=== PATIENT | male | born 1965 | race Two or more races ===

== ENCOUNTER 2017-05-29 15:50 | Observation (INO) | payer OTHER ==
[~2017-05-29] VITALS: Ht 180.3 cm; Wt 110.2 kg
--- NOTE | 2017-05-29 16:47 | PHYS DOC ---
Past Medical History Past Medical History: Anemia Additional Past Medical Histor: ULCER Past Surgical History: No Surgical History Alcohol Use: Occasionally Drug Use: None Adult General Chief Complaint Chief Complaint: CHEST PAIN HPI HPI Patient is a 51 year old male who presents ambulatory to the ED with the complaint of chest and neck pain. The patient's primary language is Belgian and the translator/interpreter phone was used by me for the history. Patient has really 2 separate complaints. He complains of pain on the left side of his neck and also pain in the middle of his chest. Patient has had some pain in the left neck off and on for some time. When it's worst it goes from the top of his head down the left side of his neck into his left upper arm. It does not go all the way down his arm. The pain is mainly in his neck. It worsens with movement of his neck such as turning his head from side to side. It doesn't really hurt at all when he lays still and holds his head straight. He's had this before off and on and really didn't think much of it. It kept him up some last night and he took some Tylenol at 2 AM which did help a little bit. He also complains of pain in the middle of his chest which is more concerning to him. On May 25, he was sitting, he stood up to give his a hug and he had the sudden onset of pain in the center of his chest. It felt like "a stab in my heart". Since then the pain will come and go but has not gone away and stayed away. Right now he is not having it. It does seem to worsen with movement or exertion. Also worsens with a slight cough or a deep breath. He has not had a cough, not short of air. No fever or chills. "I'm feeling fine other than the pain". Patient is concerned about the chest pain, concerned that it might be his heart. Patient does not smoke. His only medication is a "iron pill" that he takes 4 days a week. He has not taken anything for the pain other than a dose of Tylenol. PCP Dr. 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 [employer] Review of Systems Review of Systems Constitutional: Denies fever or chills [] HENT: Denies nasal congestion or sore throat [] Respiratory: As in history of present illness Cardiovascular: As in history of present illness GI: Denies abdominal pain, nausea, vomiting, bloody stools or diarrhea [] : Denies dysuria or hematuria [] Musculoskeletal: Denies back pain or joint pain [] Integument: Denies rash or skin lesions [] Neurologic: Denies headache, focal weakness or sensory changes [] Current Medications Current Medications Current Medications Medications (Trade) Dose Ordered Sig/Mirta Start Time Stop Time Status Last Admin Dose Admin Aspirin (Children'S Aspirin) 324 mg 1X ONCE 05/29/17 17:00 05/29/17 17:01 DC 05/29/17 16:54 324 MG Ketorolac Tromethamine (Toradol) 30 mg 1X ONCE 05/29/17 17:00 05/29/17 17:01 DC 05/29/17 16:54 30 MG Allergies Allergies Allergies Coded Allergies Type Severity Reaction Last Updated Verified No Known Drug Allergies 05/29/17 No Physical Exam Physical Exam Constitutional: Well developed, well nourished, no acute distress, non-toxic appearance. Alert, mentating normally, blood pressure 157/93, heart rate 80, pulse ox on room air 95%. HENT: Normocephalic, atraumatic, bilateral external ears normal, nose normal. [ ] Eyes: conjunctiva normal, no discharge. [] Neck: Normal range of motion, no stridor. Patient indicates the area of pain on the left trapezius muscle over the neck and top of the shoulder Cardiovascular:Heart rate regular rhythm, no murmur [] Lungs & Thorax: Bilateral breath sounds clear to auscultation [] Abdomen: Bowel sounds normal, soft, no tenderness, no masses, no pulsatile masses. [] Skin: Warm, dry, no erythema, no rash. [] Extremities: No tenderness, no cyanosis, no clubbing, ROM intact, no edema. [] Neurologic: Alert and oriented X 3, normal motor function, normal sensory function, no focal deficits noted. [] Current Patient Data Vital Signs Vital Signs Date Time Temp Pulse Resp B/P (MAP) Pulse Ox O2 Delivery O2 Flow Rate FiO2 05/29/17 16:00 98.6 73 18 166/108 (127) 97 Room Air 98.6 Lab Values Laboratory Tests Test 05/29/17 16:05 White Blood Count 6.7 x10^3/uL (4.0-11.0) Red Blood Count 5.40 x10^6/uL (4.30-5.70) Hemoglobin 16.1 g/dL (13.0-17.5) Hematocrit 48.1 % (39.0-53.0) Mean Corpuscular Volume 89 fL (79-100) Mean Corpuscular Hemoglobin 30 pg (25-35) Mean Corpuscular Hemoglobin Concent 33 g/dL (31-37) Red Cell Distribution Width 14.6 % (11.5-14.5) H Platelet Count 176 x10^3/uL (140-400) Neutrophils (%) (Auto) 73 % (31-73) Lymphocytes (%) (Auto) 19 % (24-48) L Monocytes (%) (Auto) 6 % (0-9) Eosinophils (%) (Auto) 1 % (0-3) Basophils (%) (Auto) 1 % (0-3) Neutrophils # (Auto) 4.9 x10^3uL (1.8-7.7) Lymphocytes # (Auto) 1.3 x10^3/uL (1.0-4.8) Monocytes # (Auto) 0.4 x10^3/uL (0.0-1.1) Eosinophils # (Auto) 0.1 x10^3/uL (0.0-0.7) Basophils # (Auto) 0.1 x10^3/uL (0.0-0.2) Sodium Level 142 mmol/L (136-145) Potassium Level 3.9 mmol/L (3.5-5.1) Chloride Level 106 mmol/L (98-107) Carbon Dioxide Level 26 mmol/L (21-32) Anion Gap 10 (6-14) Blood Urea Nitrogen 9 mg/dL (8-26) Creatinine 0.7 mg/dL (0.7-1.3) Estimated GFR (Cockcroft-Gault) 119.4 Glucose Level 105 mg/dL (70-99) H Calcium Level 8.8 mg/dL (8.5-10.1) Magnesium Level 2.0 mg/dL (1.8-2.4) Total Bilirubin 0.8 mg/dL (0.2-1.0) Direct Bilirubin 0.1 mg/dL (0.0-0.2) Aspartate Amino Transferase (AST) 29 U/L (15-37) Alanine Aminotransferase (ALT) 29 U/L (16-63) Alkaline Phosphatase 100 U/L (46-116) Creatine Kinase 301 U/L (39-308) Creatine Kinase MB (Mass) 1.1 ng/mL (0.0-3.6) Creatine Kinase MB Relative Index 0.4 % (0-4) Troponin I Quantitative < 0.017 ng/mL (0.000-0.055) CA-Tmm-B-Type Natriuretic Peptide 41 pg/mL (0-124) Total Protein 7.5 g/dL (6.4-8.2) Albumin 3.7 g/dL (3.4-5.0) Laboratory Tests 05/29/17 16:05 Laboratory Tests 05/29/17 16:05 EKG EKG 12-lead EKG read by me. Sinus rhythm. Heart rate 73. There are no acute ST or T wave changes indicative of ischemia or infarction. No STEMI. 1602 [] Radiology/Procedures Radiology/Procedures Chest x-ray read by the radiologist. No acute findings. [] Course & Med Decision Making Course & Med Decision Making Pertinent Labs and Imaging studies reviewed. (See chart for details) 51-year-old male presents to the ED with what seems to be 2 separate pain complaints. He is complaining of pain on the left side of his neck that sounds musculoskeletal. He believes he has a separate pain which is a pain in the middle of his chest which she first noticed 5 days ago and has been coming and going since then. It does not sound particularly cardiac but there is no other explanation at this time for the pain. The patient is concerned it might be his heart. I discussed with the patient, using the translator/interpreter phone, that we can evaluate labs, EKG, chest x-ray and emergency department, but to fully evaluate him and rule out cardiac etiology we will need to admit him to the hospital for at least one night for cardiology evaluation and further testing. He is agreeable to that plan. We will give the patient had a dose of IV Toradol for the neck pain but what we are really concerned with today is the chest pain. Labs, EKG, chest x-ray unremarkable in the ED. We will admit him for an observation stay for rule out cardiac etiology. I discussed the case with Dr. [facility] medicine, who will admit the patient. I wrote bridge orders. [] Dragon Disclaimer Dragon Disclaimer This electronic medical record was generated, in whole or in part, using a voice recognition dictation system. Departure Departure Impression: Primary Impression: Chest pain Disposition: 09 ADMITTED INPATIENT Admitting Physician: Other Condition: STABLE VALENTÍN KIM MD May 29, 2017 16:47
[2017-05-29 16:50] LABS: BASO # 0.1 x10^3/uL (0.0-0.2); BASO % 1 % (0-3); EOS % 1 % (0-3); HEMATOCRIT 48.1 % (39.0-53.0); HEMOGLOBIN 16.1 g/dL (13.0-17.5); LYMPH # 1.3 x10^3/uL (1.0-4.8); LYMPH % 19 % (24-48); MEAN CORPUSCULAR HEMOGLOBIN 30 pg (25-35); MEAN CORPUSCULAR HGB CONC 33 g/dL (31-37); MEAN CORPUSCULAR VOLUME 89 fL (79-100); MONO % 6 % (0-9); NEUT % 73 % (31-73); PLATELET COUNT 176 x10^3/uL (140-400); RED CELL DISTRIBUTION WIDTH 14.6 % (11.5-14.5); WHITE BLOOD COUNT 6.7 x10^3/uL (4.0-11.0)
[2017-05-29] MEDS ORDERED: KETOROLAC TROMETHAMINE 30 MG/ML INJ. IV ONE (17:00)
[2017-05-29] MEDS ORDERED: ASPIRIN CHEWABLE 81 MG TABLET. PO ONE (17:00)
--- NOTE | 2017-05-29 17:03 | RAD ---
AP portable chest radiograph 05/29/2017 Clinical History: Mid chest pain since earlier today. An AP portable erect digital radiograph of the chest was obtained. No previous studies are available for comparison. The cardiac silhouette is mildly enlarged. The thoracic aorta is tortuous. Linear band of subsegmental atelectasis is seen involving the medial aspect of the left lower lobe. No area of consolidation is seen. No pleural effusion or pneumothorax is noted. Degenerative changes are seen involving the thoracic spine and both shoulders. Impression: Left lower lobe subsegmental atelectasis. No area of consolidation is seen.
[2017-05-29 17:06] LABS: CALCIUM 8.8 mg/dL (8.5-10.1); CREATININE 0.7 mg/dL (0.7-1.3); GFR 119.4; POTASSIUM 3.9 mmol/L (3.5-5.1)
[2017-05-29 17:12] LABS: ALBUMIN 3.7 g/dL (3.4-5.0); DIRECT BILIRUBIN 0.1 mg/dL (0.0-0.2); TOTAL BILIRUBIN 0.8 mg/dL (0.2-1.0); TOTAL PROTEIN 7.5 g/dL (6.4-8.2)
[2017-05-29 17:21] LABS: CKMB MASS 1.1 ng/mL (0.0-3.6)
[2017-05-29 19:30] VITALS: BP 124/88
--- NOTE | 2017-05-29 19:31 | HP ---
ADMIT DATE: 05/29/2017 CHIEF COMPLAINT: Chest pain, neck pain. HISTORY OF PRESENT ILLNESS: The patient is a 51-year-old Chinese gentleman who presented to the Emergency Room with chest pain as well as neck pain. 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 This was coming and going off and on for the next couple of days disappeared over the weekend only to recur on Sunday. Currently, his chest pain is essentially resolved. He states it is worse with deep breathing or coughing. He has a mild chronic cough. What concerned him more was actually his neck pain that started yesterday at work. He had a sharp, crampy pain in the left side of his neck, making it difficult for him to actually turn his neck from side to side. He tried Tylenol with minimal relief and decided with 2 different pains to come into the hospital. In the Emergency Room, his neck pain is actually much improved. He denies significant chest pain at this time. Denies any fevers, chills or other symptoms. PAST MEDICAL HISTORY: GI bleed in distant past. He does not remember any details. FAMILY HISTORY: Unknown, both parents . SOCIAL HISTORY: Lives with his . Never smoked. Drinks alcohol socially and no drugs. ALLERGIES: No known drug allergies. MEDICATIONS: MAR reconciled with home medications. REVIEW OF SYSTEMS: positive as per HPI. no other symptoms in rest of organ system review. PHYSICAL EXAM: Vital signs are stable, he is afebrile. In GENERAL, this is a 51 y/o obese Chinese man, alert and oriented, in no acute distress. HEENT shows no icterus, no lymphadenopathy. LUNGS are clear to auscultation. HEART has regular rate and rhythm. ABDOMEN is obese, positive bowel sounds, nontender. EXTREMITIES show no edema. SKIN is warm, soft and dry. NEUROLOGICALLY he is grossly intact. LABS: CBC with a WBC of 6.7, hemoglobin onf 16.1, platelets 176. Chemistries completely normal, incl LFTs. Initial cardiac enzymes all normal. RADIOGRAPHIC FINDINGS: CXR with left lower lobe atelectasis, no consolidations noted. ASSESSMENT AND PLAN: Mr Alvarez is a 51 yea old Chinese presenting with atypical chest pain. Suspicion is that this is GERD, given chronic cough, body habitus and history of what sounds like PUD. Will start on H2 brendon tonight, switch to PPI in AM. Nevertheless, heart disease should be ruled out. He will be admitted, serial enzymes and EKGs will be obtained. cardiology consult will be called in AM. Labs are ordered to stratify for other risk factors, including lipids and hemoglobin A1c. His neck pain is most likely musculoskeletal. Heating pad and NSAIDs would be ideal, but with suspected GI issues, trial of tylenol on lortab is preferable. KARUNA PERSAUD MD DR: IRA/nts JOB#: [id number] / [id number] KIMBERLEY
[2017-05-29 23:00] VITALS: BP 124/79
[2017-05-29] MEDS ORDERED: FAMOTIDINE 20 MG TABLET. PO ONE (23:00)
--- NOTE | 2017-05-29 23:45 | EKG ---
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
[2017-05-30 07:00] VITALS: BP 131/89
[2017-05-30] MEDS ORDERED: PANTOPRAZOLE 40 MG TABLET.DR. PO SCH (07:30)
[2017-05-30 07:38] LABS: CHOLESTEROL/HDL RATIO 4.9
[2017-05-30] MEDS ORDERED: IBUPROFEN 600 MG TABLET. PO PRN (09:15)
[2017-05-30] MEDS ORDERED: MORPHINE SULFATE 4 MG/ML DISP.SYRIN. IV PRN (09:15)
[2017-05-30] MEDS ORDERED: ONDANSETRON PF 4 MG/2 ML VIAL. IV PRN (09:15)
--- NOTE | 2017-05-30 09:47 | PDOC2 ---
CARDIAC CONSULT DATE OF CONSULT Date of Consult DATE: 05/30/17 TIME: 09:43 REASON FOR CONSULT Reason for Consult: Chest pain REFERRING PHYSICIAN Referring Physician: Dr. Barreto SOURCE Source: Chart review, Patient HISTORY OF PRESENT ILLNESS HISTORY OF PRESENT ILLNESS This is a 51 yo Welsh-speaking male who presented with complaints of chest pain. [employer] line utilized. Patient reports experiencing intermittent pain in his central chest for the last 3-4 days. Describes as stabbing in nature. Worse with sneezing and coughing. No associated shortness of breath, dizziness, diaphoresis, palpitations, or nausea/vomiting. No recent DAVID or PND. Had left posterior neck pain on Sunday. Worsened with moving the neck a certain way. On Sunday, chest pain seemed to worsen throughout the day. Called PCP, but was unable to get in to be seen so her came into the ED for further evaluation and treatment. Does have a history of PUD approximately 8 years ago. Drinks a 12- pack of beer every weekend. Pain is resolved this morning. PAST MEDICAL HISTORY Cardiovascular: No pertinent hx Pulmonary: No pertinent hx GI: GI bleed, Peptic Ulcer disease Heme/Onc: No pertinent hx Hepatobiliary: No pertinent hx Psych: No pertinent hx Rheumatologic: No pertinent hx Infectious disease: No pertinent hx ENT: No pertinent hx Renal/: No pertinent hx Endocrine: No pertinent hx Dermatology: No pertinent hx PAST SURGICAL HISTORY Past Surgical History: No pertinent history FAMILY HISTORY Family History: Other (noncontributory ) SOCIAL HISTORY Smoke: No ALCOHOL: other (12-pack beer every weekend ) Drugs: None Lives: with Family CURRENT MEDICATIONS CURRENT MEDICATIONS Current Medications Medications (Trade) Dose Ordered Sig/Mirta Route PRN Reason Start Time Stop Time Status Last Admin Dose Admin Aspirin (Children'S Aspirin) 324 mg 1X ONCE PO 05/29/17 17:00 05/29/17 17:01 DC 05/29/17 16:54 Ketorolac Tromethamine (Toradol) 30 mg 1X ONCE IV 05/29/17 17:00 05/29/17 17:01 DC 05/29/17 16:54 Famotidine (Pepcid) 20 mg 1X ONCE PO 05/29/17 23:00 05/29/17 23:01 DC 05/29/17 22:56 Pantoprazole Sodium (Protonix) 40 mg DAILYAC PO 05/30/17 07:30 05/30/17 08:43 ALLERGIES ALLERGIES: Coded Allergies: No Known Drug Allergies (Unverified , 05/29/17) ROS Review of System 14 point ROS conducted with pertinent positives noted above in HPI. PHYSICAL EXAM General: Alert, Oriented X3, Cooperative, No acute distress HEENT: Atraumatic, Mucous membr. moist/pink Lungs: Clear to auscultation, Normal air movement Heart: Regular rate, Normal S1, Normal S2 Abdomen: Soft, No tenderness Extremities: No edema, Normal pulses Skin: No significant lesion Neuro: Normal speech, Sensation intact Psych/Mental Status: Mental status NL, Mood NL MUSCULOSKELETAL: No joint tenderness VITALS VITALS Vital Signs Date Time Temp Pulse Resp B/P (MAP) Pulse Ox O2 Delivery O2 Flow Rate FiO2 05/30/17 07:00 98.5 59 20 131/89 (103) 95 Room Air 98.5 LABS Lab: Laboratory Tests Test 05/29/17 16:05 05/30/17 00:50 05/30/17 06:28 White Blood Count 6.7 x10^3/uL (4.0-11.0) Red Blood Count 5.40 x10^6/uL (4.30-5.70) Hemoglobin 16.1 g/dL (13.0-17.5) Hematocrit 48.1 % (39.0-53.0) Mean Corpuscular Volume 89 fL (79-100) Mean Corpuscular Hemoglobin 30 pg (25-35) Mean Corpuscular Hemoglobin Concent 33 g/dL (31-37) Red Cell Distribution Width 14.6 % (11.5-14.5) Platelet Count 176 x10^3/uL (140-400) Neutrophils (%) (Auto) 73 % (31-73) Lymphocytes (%) (Auto) 19 % (24-48) Monocytes (%) (Auto) 6 % (0-9) Eosinophils (%) (Auto) 1 % (0-3) Basophils (%) (Auto) 1 % (0-3) Neutrophils # (Auto) 4.9 x10^3uL (1.8-7.7) Lymphocytes # (Auto) 1.3 x10^3/uL (1.0-4.8) Monocytes # (Auto) 0.4 x10^3/uL (0.0-1.1) Eosinophils # (Auto) 0.1 x10^3/uL (0.0-0.7) Basophils # (Auto) 0.1 x10^3/uL (0.0-0.2) Sodium Level 142 mmol/L (136-145) Potassium Level 3.9 mmol/L (3.5-5.1) Chloride Level 106 mmol/L (98-107) Carbon Dioxide Level 26 mmol/L (21-32) Anion Gap 10 (6-14) Blood Urea Nitrogen 9 mg/dL (8-26) Creatinine 0.7 mg/dL (0.7-1.3) Estimated GFR (Cockcroft-Gault) 119.4 Glucose Level 105 mg/dL (70-99) Calcium Level 8.8 mg/dL (8.5-10.1) Magnesium Level 2.0 mg/dL (1.8-2.4) Total Bilirubin 0.8 mg/dL (0.2-1.0) Direct Bilirubin 0.1 mg/dL (0.0-0.2) Aspartate Amino Transf (AST/SGOT) 29 U/L (15-37) Alanine Aminotransferase (ALT/SGPT) 29 U/L (16-63) Alkaline Phosphatase 100 U/L (46-116) Creatine Kinase 301 U/L (39-308) Creatine Kinase MB (Mass) 1.1 ng/mL (0.0-3.6) Creatine Kinase MB Relative Index 0.4 % (0-4) Troponin I Quantitative < 0.017 ng/mL (0.000-0.055) < 0.017 ng/mL (0.000-0.055) < 0.017 ng/mL (0.000-0.055) ZH-Cfe-S-Type Natriuretic Peptide 41 pg/mL (0-124) Total Protein 7.5 g/dL (6.4-8.2) Albumin 3.7 g/dL (3.4-5.0) Triglycerides Level 84 mg/dL (0-150) Cholesterol Level 156 mg/dL (0-200) LDL Cholesterol, Calculated 107 mg/dL (0-100) VLDL Cholesterol, Calculated 17 mg/dL (0-40) Non-HDL Cholesterol Calculated 124 mg/dL (0-129) HDL Cholesterol 32 mg/dL (40-60) Cholesterol/HDL Ratio 4.9 ASSESSMENT/PLAN ASSESSMENT/PLAN 1. Chest pain, atypical. AMI ruled out. 2. H/o PUD 3. GERD Recommendations Will check echo to assess LV function/presence of WMA If WNL, may discharge from a cardiac standpoint Supportive care. Pain most probably GI in origin. Agree with PPI If pain persists, could consider outpatient ischemic workup. Problems: ADAM DOWLING APRN May 30, 2017 09:47
[2017-05-30 11:00] VITALS: BP 125/90
--- NOTE | 2017-05-30 11:30 | PDOC3 ---
Discharge Summary Visit Information Date of Admission: May 29, 2017 Date of Discharge: May 30, 2017 Admitting Diagnosis Comment: 1. Chest pain, atypical. AMI ruled out. 2. H/o PUD 3. GERD Final Diagnosis Problems Medical Problems: (1) Chest pain Status: Acute Brief Hospital Course Allergies Allergies Coded Allergies Type Severity Reaction Last Updated Verified No Known Drug Allergies 05/29/17 No Vital Signs Vital Signs Date Time Temp Pulse Resp B/P (MAP) Pulse Ox O2 Delivery O2 Flow Rate FiO2 05/30/17 11:00 98.7 64 20 125/90 (102) 96 Room Air 98.7 Lab Results Laboratory Tests Test 05/29/17 16:05 05/30/17 00:50 05/30/17 06:28 White Blood Count 6.7 x10^3/uL (4.0-11.0) Red Blood Count 5.40 x10^6/uL (4.30-5.70) Hemoglobin 16.1 g/dL (13.0-17.5) Hematocrit 48.1 % (39.0-53.0) Mean Corpuscular Volume 89 fL (79-100) Mean Corpuscular Hemoglobin 30 pg (25-35) Mean Corpuscular Hemoglobin Concent 33 g/dL (31-37) Red Cell Distribution Width 14.6 % (11.5-14.5) Platelet Count 176 x10^3/uL (140-400) Neutrophils (%) (Auto) 73 % (31-73) Lymphocytes (%) (Auto) 19 % (24-48) Monocytes (%) (Auto) 6 % (0-9) Eosinophils (%) (Auto) 1 % (0-3) Basophils (%) (Auto) 1 % (0-3) Neutrophils # (Auto) 4.9 x10^3uL (1.8-7.7) Lymphocytes # (Auto) 1.3 x10^3/uL (1.0-4.8) Monocytes # (Auto) 0.4 x10^3/uL (0.0-1.1) Eosinophils # (Auto) 0.1 x10^3/uL (0.0-0.7) Basophils # (Auto) 0.1 x10^3/uL (0.0-0.2) Sodium Level 142 mmol/L (136-145) Potassium Level 3.9 mmol/L (3.5-5.1) Chloride Level 106 mmol/L (98-107) Carbon Dioxide Level 26 mmol/L (21-32) Anion Gap 10 (6-14) Blood Urea Nitrogen 9 mg/dL (8-26) Creatinine 0.7 mg/dL (0.7-1.3) Estimated GFR (Cockcroft-Gault) 119.4 Glucose Level 105 mg/dL (70-99) Calcium Level 8.8 mg/dL (8.5-10.1) Magnesium Level 2.0 mg/dL (1.8-2.4) Total Bilirubin 0.8 mg/dL (0.2-1.0) Direct Bilirubin 0.1 mg/dL (0.0-0.2) Aspartate Amino Transf (AST/SGOT) 29 U/L (15-37) Alanine Aminotransferase (ALT/SGPT) 29 U/L (16-63) Alkaline Phosphatase 100 U/L (46-116) Creatine Kinase 301 U/L (39-308) Creatine Kinase MB (Mass) 1.1 ng/mL (0.0-3.6) Creatine Kinase MB Relative Index 0.4 % (0-4) Troponin I Quantitative < 0.017 ng/mL (0.000-0.055) < 0.017 ng/mL (0.000-0.055) < 0.017 ng/mL (0.000-0.055) EG-Vbn-M-Type Natriuretic Peptide 41 pg/mL (0-124) Total Protein 7.5 g/dL (6.4-8.2) Albumin 3.7 g/dL (3.4-5.0) Triglycerides Level 84 mg/dL (0-150) Cholesterol Level 156 mg/dL (0-200) LDL Cholesterol, Calculated 107 mg/dL (0-100) VLDL Cholesterol, Calculated 17 mg/dL (0-40) Non-HDL Cholesterol Calculated 124 mg/dL (0-129) HDL Cholesterol 32 mg/dL (40-60) Cholesterol/HDL Ratio 4.9 Laboratory Tests Test 05/29/17 16:05 05/30/17 00:50 05/30/17 06:28 White Blood Count 6.7 x10^3/uL (4.0-11.0) Red Blood Count 5.40 x10^6/uL (4.30-5.70) Hemoglobin 16.1 g/dL (13.0-17.5) Hematocrit 48.1 % (39.0-53.0) Mean Corpuscular Volume 89 fL (79-100) Mean Corpuscular Hemoglobin 30 pg (25-35) Mean Corpuscular Hemoglobin Concent 33 g/dL (31-37) Red Cell Distribution Width 14.6 % (11.5-14.5) Platelet Count 176 x10^3/uL (140-400) Neutrophils (%) (Auto) 73 % (31-73) Lymphocytes (%) (Auto) 19 % (24-48) Monocytes (%) (Auto) 6 % (0-9) Eosinophils (%) (Auto) 1 % (0-3) Basophils (%) (Auto) 1 % (0-3) Neutrophils # (Auto) 4.9 x10^3uL (1.8-7.7) Lymphocytes # (Auto) 1.3 x10^3/uL (1.0-4.8) Monocytes # (Auto) 0.4 x10^3/uL (0.0-1.1) Eosinophils # (Auto) 0.1 x10^3/uL (0.0-0.7) Basophils # (Auto) 0.1 x10^3/uL (0.0-0.2) Sodium Level 142 mmol/L (136-145) Potassium Level 3.9 mmol/L (3.5-5.1) Chloride Level 106 mmol/L (98-107) Carbon Dioxide Level 26 mmol/L (21-32) Anion Gap 10 (6-14) Blood Urea Nitrogen 9 mg/dL (8-26) Creatinine 0.7 mg/dL (0.7-1.3) Estimated GFR (Cockcroft-Gault) 119.4 Glucose Level 105 mg/dL (70-99) Calcium Level 8.8 mg/dL (8.5-10.1) Magnesium Level 2.0 mg/dL (1.8-2.4) Total Bilirubin 0.8 mg/dL (0.2-1.0) Direct Bilirubin 0.1 mg/dL (0.0-0.2) Aspartate Amino Transf (AST/SGOT) 29 U/L (15-37) Alanine Aminotransferase (ALT/SGPT) 29 U/L (16-63) Alkaline Phosphatase 100 U/L (46-116) Creatine Kinase 301 U/L (39-308) Creatine Kinase MB (Mass) 1.1 ng/mL (0.0-3.6) Creatine Kinase MB Relative Index 0.4 % (0-4) Troponin I Quantitative < 0.017 ng/mL (0.000-0.055) < 0.017 ng/mL (0.000-0.055) < 0.017 ng/mL (0.000-0.055) AQ-Mlq-U-Type Natriuretic Peptide 41 pg/mL (0-124) Total Protein 7.5 g/dL (6.4-8.2) Albumin 3.7 g/dL (3.4-5.0) Triglycerides Level 84 mg/dL (0-150) Cholesterol Level 156 mg/dL (0-200) LDL Cholesterol, Calculated 107 mg/dL (0-100) VLDL Cholesterol, Calculated 17 mg/dL (0-40) Non-HDL Cholesterol Calculated 124 mg/dL (0-129) HDL Cholesterol 32 mg/dL (40-60) Cholesterol/HDL Ratio 4.9 Brief Hospital Course Mr. Ramos is a 51 old male minimal nicaraguan hx PUD, admitted for CP, AMI r.o with normal CE x 3 and EKG, Echo being checked, if echo, dc home today. Advised OTC prevacid and tums, IF sxs persist then GI as oP. ALso neck pain POA, better on dc. Advised NSAID or icy hot and salon pas Dw family at bedside and cards DispO; Home PT seen and exmained Discharge Information Condition at Discharge: Improved, Stable Disposition/Orders: D/C to Home KYLEE CORRALES MD May 30, 2017 11:30
[2017-05-30 14:42] VITALS: BP 136/101
--- NOTE | 2017-05-30 15:15 | CARD ---
APPROVED REPORT EXAM: Two-dimensional and M-mode echocardiogram with Doppler and color Doppler. Other Information Quality : GoodHR: 63bpm Rhythm : NSR INDICATION Chest Pain RISK FACTORS Obesity 2D DIMENSIONS RVDd3.4 (2.9-3.5cm)Left Atrium(2D)4.3 (1.6-4.0cm) IVSd1.2 (0.7-1.1cm)Aortic Root(2D)3.7 (2.0-3.7cm) LVDd5.5 (3.9-5.9cm)LVOT Diameter2.4 (1.8-2.4cm) PWd1.2 (0.7-1.1cm)LVDs3.2 (2.5-4.0cm) FS (%) 40.7 %SV103.3 ml LVEF(%)70.9 (>50%) Aortic Valve AoV Peak Marco A.117.2cm/sAoV VTI24.5cm AO Peak GR.5.5mmHgLVOT Peak Marco A.92.8cm/s AO Mean GR.3mmHgAVA (VMAX)3.57cm2 Mitral Valve MV E Tsogqtri25.0cm/sMV E Peak Gr.3mmHg MV DECEL [id number] A Nmxgpfoz37.7cm/s MV E Mean Gr.1mmHgE/A Ratio0.7 MV A [id number] Pulmonary Valve PV Peak Riazgwnc987.3cm/s Pulmonary Vein S1 Uygjjksv70.9cm/sD2 Tarqftla63.4cm/s PVa [id number] LEFT VENTRICLE The left ventricle is normal size. There is mild concentric left ventricular hypertrophy. The left ve ntricular systolic function is normal. The Ejection Fraction is 60-65%. There is normal LV segmental wall motion. Transmitral Doppler flow pattern is Grade I-abnormal relaxation pattern. RIGHT VENTRICLE The right ventricle is normal size. There is normal right ventricular wall thickness. The right ventr icular systolic function is normal. ATRIA The left atrium is mildly dilated. The right atrium size is normal. The interatrial septum is intact with no evidence for an atrial septal defect or patent foramen ovale as noted on 2-D or Doppler imagi ng. AORTIC VALVE The aortic valve is normal in structure and function. The aortic valve is trileaflet. Doppler and Col or Flow revealed no significant aortic regurgitation. There is no significant aortic valvular stenosi s. MITRAL VALVE The mitral valve is normal in structure and function. There is no evidence of mitral valve prolapse. There is no mitral valve stenosis. Doppler and Color Flow revealed no mitral valve regurgitation note d. TRICUSPID VALVE Doppler and Color Flow revealed no tricuspid valve regurgitation noted. Unable to determine pulmonary artery pressure at exam time. PULMONIC VALVE The pulmonary valve is not well visualized but appears to opens well. Doppler and Color Flow revealed trace pulmonic valvular regurgitation. There is no pulmonic valvular stenosis by spectral Doppler. GREAT VESSELS The aortic root is mildly enlarged. The ascending aorta is mildly dilated. The pulmonary artery is no rmal. The IVC is normal in size and collapses >50% with inspiration. PERICARDIAL EFFUSION There is no evidence of significant pericardial effusion. Critical Notification Critical Value: No <Conclusion> The left ventricular systolic function is normal. The Ejection Fraction is 60-65%. There is normal LV segmental wall motion. Transmitral Doppler flow pattern is Grade I-abnormal relaxation pattern. There is no evidence of significant pericardial effusion.
== END 2017-05-30 15:47 | disposition home or self-care (01) ==
LOC: ER 15:50 → 5 SOUTH 18:05
PROVIDERS: ADMIT Internal Medicine Hematology & Oncology; ATTEND Internal Medicine Hematology & Oncology
DX: R07.89 Other chest pain (principal); K21.9 Gastro-esophageal reflux disease without esophagitis; R05 Cough; E66.9 Obesity, unspecified; Z87.11 Personal history of peptic ulcer disease
CPT/HCPCS: 36415; 71010; 80048; 80061; 80076; 82553; 83036; 83735; 83880; 84484; 85027; 93005; 93306; 96374; 99285; G0378; J1885; G0379

== ENCOUNTER 2020-04-09 10:38 | Inpatient (IN) | payer OTHER ==
[~2020-04-09] VITALS: Ht 177.8 cm; Wt 112.0 kg
[2020-04-09] MEDS ORDERED: dilTIAZem IV PUSH 25 MG/5 ML VIAL IVP ONE (11:00)
[2020-04-09 11:07] LABS: BASO # 0.1 x10^3/uL (0.0-0.2); BASO % 2 % (0-3); EOS # 0.1 x10^3/uL (0.0-0.7); EOS % 2 % (0-3); HEMATOCRIT 39.2 % (39.0-53.0); HEMOGLOBIN 12.1 g/dL (13.0-17.5); LYMPH # 1.3 x10^3/uL (1.0-4.8); LYMPH % 17 % (24-48); MEAN CORPUSCULAR HEMOGLOBIN 21 pg (25-35); MEAN CORPUSCULAR HGB CONC 31 g/dL (31-37); MEAN CORPUSCULAR VOLUME 69 fL (79-100); MONO # 0.7 x10^3/uL (0.0-1.1); MONO % 10 % (0-9); NEUT # 5.5 x10^3/uL (1.8-7.7); NEUT % 70 % (31-73); PLATELET COUNT 237 x10^3/uL (140-400); RED BLOOD COUNT 5.73 x10^6/uL (4.30-5.70); RED CELL DISTRIBUTION WIDTH 19.4 % (11.5-14.5); WHITE BLOOD COUNT 7.8 x10^3/uL (4.0-11.0)
--- NOTE | 2020-04-09 11:09 | EKG ---
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
[2020-04-09 11:23] LABS: CALCIUM 8.2 mg/dL (8.5-10.1); GFR 78.2; POTASSIUM 4.1 mmol/L (3.5-5.1)
--- NOTE | 2020-04-09 11:36 | RAD ---
Single AP view of the chest. Comparison: 05/29/2017. Indication: Chest pain Findings: The heart is enlarged but stable. There is no pneumothorax or effusion. No air space or interstitial disease. Impression: 1. No acute cardiopulmonary process. Electronically signed by: Enrique Montemayor MD (04/09/2020 11:33 AM) [id number]
[2020-04-09 12:58] LABS: ANISOCYTOSIS SLIGHT; HYPOCHROMIA MOD; MICROCYTOSIS MARKED; PLT ESTIMATE ADEQUATE (ADEQUATE); POLYCHROMASIA SLIGHT
[2020-04-09 14:37] VITALS: BP 119/63
[2020-04-09] MEDS ORDERED: NABU750T PO (14:53)
[2020-04-09] MEDS ORDERED: METOPROLOL TARTRATE 5 MG/5 ML VIAL. IVP ONE ×2 (15:15)
[2020-04-09] MEDS ORDERED: ASPIRIN ENTERIC COATED 325 MG TABLET.DR. PO ONE (15:15)
--- NOTE | 2020-04-09 15:15 | PDOC2 ---
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 He woke last night feeling palpitations around 1:30 AM. No chest pain or SOA. He decided to go back to bed and to just see his PCP in the morning as he had his annual physical today. Reports that while he was at the clinic he was told that his heart rate was fast. Upoin admission in ED he was noted with AFIB RVR and was given cardizem bolus. Presently he is still in RVR and lopressor is to be given. Again denies any symptoms. He has had brief symptoms of palpitations in the last week but no dizziness or SOA. No recent falls, injury and no recent long distance travel. He has not had any stress test in the past and no past hx of CV issues. NO hx of stroke, recreational drug use and he does not do binge alcohol anymore. No recent infection, n/v/d. PAST MEDICAL HISTORY Past Medical History Cardiovascular: DLP Pulmonary: No pertinent hx GI: GI bleed, Peptic Ulcer disease, GERD Heme/Onc: No pertinent hx Hepatobiliary: No pertinent hx Psych: No pertinent hx Rheumatologic: No pertinent hx MSK: OA Infectious disease: No pertinent hx ENT: No pertinent hx Renal/: No pertinent hx Endocrine: No pertinent hx Dermatology: No pertinent hx PAST SURGICAL HISTORY Past Surgical History: No pertinent history FAMILY HISTORY Family History noncontributory SOCIAL HISTORY Smoke: No ALCOHOL: other (binge alcholism in the past which he does not do anymore. Denies heavy alcohol use) Drugs: None Lives: with Family CURRENT MEDICATIONS CURRENT MEDICATIONS Current Medications Medications (Trade) Dose Ordered Sig/Mirta Route PRN Reason Start Time Stop Time Status Last Admin Dose Admin Diltiazem HCl (Cardizem Iv Push) 20 mg 1X ONCE IVP 04/09/20 11:00 04/09/20 11:01 DC 04/09/20 11:18 ALLERGIES ALLERGIES: Coded Allergies: No Known Drug Allergies (Unverified , 05/29/17) ROS Review of System 14 point ROS evaluated with pertinent positives noted per HPI PHYSICAL EXAM General: Alert, Oriented X3, Cooperative, No acute distress HEENT: Atraumatic, Mucous membr. moist/pink Lungs: Clear to auscultation, Normal air movement Heart: Other (AFIB RVR) Abdomen: Soft, No tenderness Extremities: No cyanosis, No edema Skin: No breakdown, No significant lesion Neuro: Normal speech, Sensation intact Psych/Mental Status: Mental status NL, Mood NL MUSCULOSKELETAL: Osteoarthritic changes both hands VITALS/I&O VITALS/I&O: Vital Signs Date Time Temp Pulse Resp B/P (MAP) Pulse Ox O2 Delivery O2 Flow Rate FiO2 04/09/20 14:37 98.3 103 18 119/63 (81) 100 Room Air 98.3 LABS Lab: Laboratory Tests Test 04/09/20 10:56 White Blood Count 7.8 x10^3/uL (4.0-11.0) Red Blood Count 5.73 x10^6/uL (4.30-5.70) H Hemoglobin 12.1 g/dL (13.0-17.5) L Hematocrit 39.2 % (39.0-53.0) Mean Corpuscular Volume 69 fL (79-100) L Mean Corpuscular Hemoglobin 21 pg (25-35) L Mean Corpuscular Hemoglobin Concent 31 g/dL (31-37) Red Cell Distribution Width 19.4 % (11.5-14.5) H Platelet Count 237 x10^3/uL (140-400) Neutrophils (%) (Auto) 70 % (31-73) Lymphocytes (%) (Auto) 17 % (24-48) L Monocytes (%) (Auto) 10 % (0-9) H Eosinophils (%) (Auto) 2 % (0-3) Basophils (%) (Auto) 2 % (0-3) Neutrophils # (Auto) 5.5 x10^3/uL (1.8-7.7) Lymphocytes # (Auto) 1.3 x10^3/uL (1.0-4.8) Monocytes # (Auto) 0.7 x10^3/uL (0.0-1.1) Eosinophils # (Auto) 0.1 x10^3/uL (0.0-0.7) Basophils # (Auto) 0.1 x10^3/uL (0.0-0.2) Platelet Estimate Adequate (ADEQUATE) Large Platelets Few Giant Platelets Occ Polychromasia Slight Hypochromasia Mod Anisocytosis Slight Microcytosis Marked Sodium Level 145 mmol/L (136-145) Potassium Level 4.1 mmol/L (3.5-5.1) Chloride Level 109 mmol/L (98-107) H Carbon Dioxide Level 27 mmol/L (21-32) Anion Gap 9 (6-14) Blood Urea Nitrogen 18 mg/dL (8-26) Creatinine 1.0 mg/dL (0.7-1.3) Estimated GFR (Cockcroft-Gault) 78.2 Glucose Level 119 mg/dL (70-99) H Calcium Level 8.2 mg/dL (8.5-10.1) L Troponin I Quantitative < 0.017 ng/mL (0.000-0.055) DE-Hgm-I-Type Natriuretic Peptide 785 pg/mL (0-124) H Laboratory Tests 04/09/20 10:56 Laboratory Tests 04/09/20 10:56 ECHOCARDIOGRAM ECHOCARDIOGRAM <Conclusion> The left ventricular systolic function is normal. The Ejection Fraction is 60-65%. There is normal LV segmental wall motion. Transmitral Doppler flow pattern is Grade I-abnormal relaxation pattern. There is no evidence of significant pericardial effusion. DATE: 05/30/17 1514 ASSESSMENT/PLAN ASSESSMENT/PLAN 1. AFIB RVR: new [id number] score 0 2. Hx of PUD/: remote in 2000 3. Microcytic hypochromic anemia: Fe def per pt Recommendations 1. TSH, Mg, TTE when rate is controlled 2. Received diltiazem bolus in ED. Lopressor IV x1. ASA x1. Start on Metoprolol po. 3. MCOT as an outpt 4. If pt remains in AFIB prior to DC then will consider starting on eliquis for outpt CVN consideration 5. Discussed avoidance of routine NSAID and utilize topicals. 6. Consider for outpt GAUTAM w/u ROGELIO HENDERSON MD 04/11/20 1623: CARDIAC CONSULT ASSESSMENT/PLAN ASSESSMENT/PLAN Late entry for 04/09/2020 Pt. seen and examined. 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 Supportive care. Patient is confused and no acute indication for anticoagulation until stabilized and is not a fall risk. Thanks HONEY OSPINA APRN Apr 09, 2020 15:15 ROGELIO HENDERSON MD Apr 11, 2020 16:23
[2020-04-09] MEDS ORDERED: METOPROLOL TARTRATE 5 MG/5 ML VIAL. IVP PRN (16:15)
[2020-04-09] MEDS: METOPROLOL TART IMMED RELEASE 25 MG TABLET. PO SCH ×2 (17:02→20:09)
--- NOTE | 2020-04-09 18:08 | PHYS DOC ---
Past Medical History Past Medical History: Anemia Additional Past Medical Histor: ULCER Past Surgical History: No Surgical History Smoking Status: Never Smoker Alcohol Use: Occasionally Drug Use: None General Adult EDM: Chief Complaint: ABNORMAL LABS HPI: HPI: Patient is a 54 year old male who presents with shortness of breath and fatigue. He states that he felt this set on suddenly earlier today. He is never had anything like this previously. He went to an urgent care who sent him here for concern of possible anemia. He has a history of anemia. He has no history of cardiac disease. He has never had a cardiac arrhythmia. He denies any syncope. He denies any chest pain. Review of Systems: Review of Systems: General: Denies fever, chills, sweats. Reports fatigue Eyes: Denies drainage, blurred vision HENT: Denies rhinorrhea, sore throat Respiratory: Denies cough, wheezing reports shortness of breath Cardiac: Denies edema, palpitations, chest pain GI: Denies abdominal pain, N/V MSK: Denies back pain, neck pain Skin: Denies rash, jaundice Neuro: Denies headache, dizziness Psychiatric: Denies SI/HI Heart Score: Risk Factors: Risk Factors: DM, Current or recent (<one month) smoker, HTN, HLP, family history of CAD, obesity. Risk Scores: Score 0 - 3: 2.5% MACE over next 6 weeks - Discharge Home Score 4 - 6: 20.3% MACE over next 6 weeks - Admit for Clinical Observation Score 7 - 10: 72.7% MACE over next 6 weeks - Early Invasive Strategies Current Medications: Current Medications Medications (Trade) Dose Ordered Sig/[facility] Start Time Stop Time Status Last Admin Dose Admin Diltiazem HCl (Cardizem Iv Push) 20 mg 1X ONCE 04/09/20 11:00 04/09/20 11:01 DC 04/09/20 11:18 20 MG Allergies: Allergies: Allergies Coded Allergies Type Severity Reaction Last Updated Verified No Known Drug Allergies 05/29/17 No Physical Exam: PE: Constitutional: Well developed, well nourished, Cooperative, NAD, non-toxic appearing HEENT: Normocephalic, atraumatic, oropharynx moist, EOMI, PERRL, no drainage from eyes, normal conjunctiva Neck: Supple, normal range of motion, no stridor Cardiovascular: Irregularly irregular tachycardia, 2+ radial pulses bilaterally, no edema Respiratory: CTA bilaterally, no respiratory distress, no wheezing/crackles Abdomen: Soft, nontender, nondistended, no masses Skin: Warm, dry, intact Extremities: No obvious deformities Neurologic: Alert and Oriented x3, motor and sensory function grossly normal, no focal deficits Psychologic: Normal affect, normal judgment, normal mood. No SI/HI Current Patient Data: Labs: Laboratory Tests Test 04/09/20 10:56 White Blood Count 7.8 x10^3/uL (4.0-11.0) Red Blood Count 5.73 x10^6/uL (4.30-5.70) H Hemoglobin 12.1 g/dL (13.0-17.5) L Hematocrit 39.2 % (39.0-53.0) Mean Corpuscular Volume 69 fL (79-100) L Mean Corpuscular Hemoglobin 21 pg (25-35) L Mean Corpuscular Hemoglobin Concent 31 g/dL (31-37) Red Cell Distribution Width 19.4 % (11.5-14.5) H Platelet Count 237 x10^3/uL (140-400) Neutrophils (%) (Auto) 70 % (31-73) Lymphocytes (%) (Auto) 17 % (24-48) L Monocytes (%) (Auto) 10 % (0-9) H Eosinophils (%) (Auto) 2 % (0-3) Basophils (%) (Auto) 2 % (0-3) Neutrophils # (Auto) 5.5 x10^3/uL (1.8-7.7) Lymphocytes # (Auto) 1.3 x10^3/uL (1.0-4.8) Monocytes # (Auto) 0.7 x10^3/uL (0.0-1.1) Eosinophils # (Auto) 0.1 x10^3/uL (0.0-0.7) Basophils # (Auto) 0.1 x10^3/uL (0.0-0.2) Platelet Estimate Adequate (ADEQUATE) Large Platelets Few Giant Platelets Occ Polychromasia Slight Hypochromasia Mod Anisocytosis Slight Microcytosis Marked Sodium Level 145 mmol/L (136-145) Potassium Level 4.1 mmol/L (3.5-5.1) Chloride Level 109 mmol/L (98-107) H Carbon Dioxide Level 27 mmol/L (21-32) Anion Gap 9 (6-14) Blood Urea Nitrogen 18 mg/dL (8-26) Creatinine 1.0 mg/dL (0.7-1.3) Estimated GFR (Cockcroft-Gault) 78.2 Glucose Level 119 mg/dL (70-99) H Calcium Level 8.2 mg/dL (8.5-10.1) L Troponin I Quantitative < 0.017 ng/mL (0.000-0.055) JT-Yaj-I-Type Natriuretic Peptide 785 pg/mL (0-124) H Thyroid Stimulating Hormone (TSH) 1.554 uIU/mL (0.358-3.74) Laboratory Tests 04/09/20 10:56 Laboratory Tests 04/09/20 10:56 Vital Signs: Vital Signs Date Time Temp Pulse Resp B/P (MAP) Pulse Ox O2 Delivery O2 Flow Rate FiO2 04/09/20 17:02 128 119/63 04/09/20 15:40 Room Air 04/09/20 14:37 98.3 18 100 98.3 EKG: EKG: [] Radiology/Procedures: Radiology/Procedures: [] Course & Med Decision Making: Course & Med Decision Making Pertinent Labs and Imaging studies reviewed. (See chart for details) Patient is 54-year-old male who presents the emergency room complaining of shortness of breath and fatigue. Upon arrival to the emergency room an EKG was done and patient was found to be in atrial fibrillation with RVR. He does not have a history of this. He has new onset atrial fibrillation. He was given di ltiazem with rate control. He will be admitted for new onset atrial fibrillation. Dragon Disclaimer: Dragon Disclaimer: This electronic medical record was generated, in whole or in part, using a voice recognition dictation system. Departure Departure Impression: Primary Impression: Atrial fibrillation Disposition: ADMITTED INPATIENT Condition: IMPROVED Referrals: VARINDER MACIAS (PCP) Justicifation of Admission Dx: Justifications for Admission: Justification of Admission Dx: Yes STEPHIE ESCALANTE MD Apr 09, 2020 18:08
[2020-04-09 18:25] LABS: BILIRUBIN,URINE NEGATIVE (NEG); CLARITY,URINE CLEAR; COLOR,URINE YELLOW; NITRITE,URINE NEGATIVE (NEG); PH,URINE 7.5 (<5.0-8.0); PROTEIN,URINE NEGATIVE (NEG-TRACE)
--- NOTE | 2020-04-09 18:43 | HP ---
ADMIT DATE: 04/09/2020 CHIEF COMPLAINT: Chest palpitations. HISTORY OF PRESENT ILLNESS: The patient is a pleasant 54-year-old male who presented with sharp chest pain and palpitations. It has been occurring since 1:30 this morning, he had some associated shortness of breath. He took some [id number] meds that did not work. While in the ER, we noted that he is in AFib with RVR. I discussed the case with ER physician. We are going to admit the patient and give him negative chronotropic agents and consult Cardiology. PAST MEDICAL HISTORY: Hyperlipidemia, GI bleed, GERD, osteoarthritis. ALLERGIES: None. FAMILY HISTORY: Diabetes. SOCIAL HISTORY: Does not drink, smoke or take drugs. MEDICATIONS: Reviewed, please refer to the MRAD. REVIEW OF SYSTEMS: GENERAL: No history of weight change, weakness or fevers. SKIN: No bruising, hair changes or rashes. EYES: No blurred, double or loss of vision. NOSE AND THROAT: No history of nosebleeds, hoarseness or sore throat. HEART: No history of palpitations, chest pain or shortness of breath on exertion. LUNGS: Denies cough, hemoptysis, wheezing or shortness of breath. GASTROINTESTINAL: Denies changes in appetite, nausea, vomiting, diarrhea or constipation. GENITOURINARY: No history of frequency, urgency, hesitancy or nocturia. NEUROLOGIC: Denies history of numbness, tingling, tremor or weakness. PSYCHIATRIC: No history of panic, anxiety or depression. ENDOCRINE: No history of heat or cold intolerance, polyuria or polydipsia. EXTREMITIES: Denies muscle weakness, joint pain, pain on walking or stiffness. PHYSICAL EXAMINATION: VITALS: Within normal limits and are stable. GENERAL: No apparent distress. Alert and oriented. HEENT: Normal cephalic atraumatic, external auditory canals are patent EYES: Extraocular muscles are intact, pupils are equally round and reactive to light and accommodation MUSCULOSKELETAL: Well developed, well nourished, good range of motion ENDOCRINE: No thyromegaly was palpated LYMPHATICS: No cervical chain or axillary nodes were noted HEMATOPOIETIC: No bruising NECK: Supple, no JVD, no thyromegaly was noted. LUNGS: Clear to auscultation in all lung bazzi without rhonchi or wheezing. HEART: He has irregular S1, S2 at 90 beats per minute. ABDOMEN: Soft, nontender. Positive bowel sounds no organomegaly, normal bowel sounds. EXTREMITIES: Without any cyanosis, clubbing, or edema. Pedal pulses intact, Homans sign is negative. NEUROLOGIC: Normal speech, normal tone. A & O x3, moves all extremities, no obvious focal deficits. PSYCHIATRIC: Normal affect, normal mood. Stable. SKIN: No ulcerations or rashes, good skin turgor, no jaundice. VASCULAR: Good capillary refill, neurovascular bundle appears to be intact. LABORATORY DATA: Troponin is 0. BNP 785, hemoglobin 12. Chest x-ray normal. ASSESSMENT AND PLAN: Atrial fibrillation with rapid ventricular response. The patient has been admitted. We will start IV negative chronotropic agents such as Cardizem. We will consider anticoagulation. Consult Cardiology. Home meds, DVT prophylaxis. Full code. Cardiac monitoring, serial enzymes, serial EKGs. PROGNOSIS: Guarded. DIANA ALARCON DO DR: KUN/dick JOB#: [id number] / [id number]
[2020-04-09 18:48] LABS: BACTERIA,URINE 0 /HPF (0-FEW); RBC,URINE 0 /HPF (0-2); WBC,URINE OCC /HPF (0-4)
[2020-04-09 19:35] VITALS: BP 102/72
[2020-04-09 23:34] VITALS: BP 129/58
[2020-04-10 03:30] VITALS: BP 116/61
[2020-04-10 05:29] LABS: CALCIUM 7.7 mg/dL (8.5-10.1); CREATININE 0.8 mg/dL (0.7-1.3); GFR 101.1; MAGNESIUM 2.2 mg/dL (1.8-2.4); POTASSIUM 4.1 mmol/L (3.5-5.1)
[2020-04-10 05:30] LABS: CHOLESTEROL/HDL RATIO 4.6
[2020-04-10 07:00] VITALS: BP 92/68
[2020-04-10] MEDS: METOPROLOL TART IMMED RELEASE 25 MG TABLET. PO SCH ×2 (09:02→20:50)
[2020-04-10] MEDS ORDERED: DIGOXIN IV 500 MCG/2 ML AMPUL. IV ONE (10:15)
--- NOTE | 2020-04-10 10:22 | PDOC ---
PROGRESS NOTES History of Present Illness History of Present Illness ASSESSMENT AND PLAN: Atrial fibrillation with rapid ventricular response. morbid obesity Transmitral Doppler flow pattern is Grade I-abnormal relaxation pattern. 05/2017 AFIB RVR: new DVT2-SM3-Ueey score 0 Hx of PUD/: remote in 2000 Microcytic hypochromic anemia: Fe def admitted. cvc bed IV Cardizem. consider anticoagulation. WITH ELIQUIS IF REMAINS in a-fib Consult Cardiology. Home meds, DVT prophylaxis. Full code. serial enzymes, serial EKGs. TSH ECHO wt loss diet discussed 39 min pt exam, chart review, > 50% of time spent with exam, chart review, pt care coordination Vitals Vitals Vital Signs Date Time Temp Pulse Resp B/P (MAP) Pulse Ox O2 Delivery O2 Flow Rate FiO2 04/10/20 09:02 97/67 04/10/20 08:00 Room Air 04/10/20 07:00 98.0 117 20 99 98.0 Physical Exam General: Alert, Oriented X3, Cooperative, No acute distress Heart: Other (AFIB RVR) Abdomen: Soft, No tenderness Extremities: No cyanosis, No edema Skin: No breakdown, No significant lesion Labs LABS EXAM: Two-dimensional and M-mode echocardiogram with Doppler and color Doppler. Other Information Quality : Good HR: 63bpm Rhythm : NSR INDICATION Chest Pain RISK FACTORS Obesity 2D DIMENSIONS RVDd 3.4 (2.9-3.5cm) Left Atrium(2D) 4.3 (1.6-4.0cm) IVSd 1.2 (0.7-1.1cm) Aortic Root(2D) 3.7 (2.0-3.7cm) LVDd 5.5 (3.9-5.9cm) LVOT Diameter 2.4 (1.8-2.4cm) PWd 1.2 (0.7-1.1cm) LVDs 3.2 (2.5-4.0cm) FS (%) 40.7 % SV 103.3 ml LVEF(%) 70.9 (>50%) Aortic Valve AoV Peak Marco A. 117.2cm/s AoV VTI 24.5cm AO Peak GR. 5.5mmHg LVOT Peak Marco A. 92.8cm/s AO Mean GR. 3mmHg GAYATRI (VMAX) 3.57cm2 Mitral Valve MV E Velocity 52.0cm/s MV E Peak Gr. 3mmHg MV DECEL TIME 199ms MV A Velocity 75.7cm/s MV E Mean Gr. 1mmHg E/A Ratio 0.7 MV A Duration 97ms Pulmonary Valve PV Peak Velocity 129.3cm/s Pulmonary Vein S1 Velocity 38.9cm/s D2 Velocity 29.4cm/s PVa duration 74msec LEFT VENTRICLE The left ventricle is normal size. There is mild concentric left ventricular hypertrophy. The left ventricular systolic function is normal. The Ejection Fraction is 60-65%. There is normal LV segmental wall motion. Transmitral Doppler flow pattern is Grade I-abnormal relaxation pattern. RIGHT VENTRICLE The right ventricle is normal size. There is normal right ventricular wall thickness. The right ventricular systolic function is normal. ATRIA The left atrium is mildly dilated. The right atrium size is normal. The interatrial septum is intact with no evidence for an atrial septal defect or patent foramen ovale as noted on 2-D or Doppler imaging. AORTIC VALVE The aortic valve is normal in structure and function. The aortic valve is trileaflet. Doppler and Color Flow revealed no significant aortic regurgitation. There is no significant aortic valvular stenosis. MITRAL VALVE The mitral valve is normal in structure and function. There is no evidence of mitral valve prolapse. There is no mitral valve stenosis. Doppler and Color Flow revealed no mitral valve regurgitation noted. TRICUSPID VALVE Doppler and Color Flow revealed no tricuspid valve regurgitation noted. Unable to determine pulmonary artery pressure at exam time. PULMONIC VALVE The pulmonary valve is not well visualized but appears to opens well. Doppler and Color Flow revealed trace pulmonic valvular regurgitation. There is no pulmonic valvular stenosis by spectral Doppler. GREAT VESSELS The aortic root is mildly enlarged. The ascending aorta is mildly dilated. The pulmonary artery is normal. The IVC is normal in size and collapses >50% with inspiration. PERICARDIAL EFFUSION There is no evidence of significant pericardial effusion. Critical Notification Critical Value: No <Conclusion> The left ventricular systolic function is normal. The Ejection Fraction is 60-65%. There is normal LV segmental wall motion. Transmitral Doppler flow pattern is Grade I-abnormal relaxation pattern. There is no evidence of significant pericardial effusion. DICTATED and SIGNED BY: DIANE HANSON MD DATE: 05/30/17 9527 CC: VARINDER MACIAS; ADAM DOWLING APRN; DIANE HANSON MD; KARUNA PERSAUD MD ~ Laboratory Tests Test 04/09/20 10:56 04/09/20 18:15 04/10/20 04:30 White Blood Count 7.8 x10^3/uL (4.0-11.0) Red Blood Count 5.73 x10^6/uL (4.30-5.70) Hemoglobin 12.1 g/dL (13.0-17.5) Hematocrit 39.2 % (39.0-53.0) Mean Corpuscular Volume 69 fL (79-100) Mean Corpuscular Hemoglobin 21 pg (25-35) Mean Corpuscular Hemoglobin Concent 31 g/dL (31-37) Red Cell Distribution Width 19.4 % (11.5-14.5) Platelet Count 237 x10^3/uL (140-400) Neutrophils (%) (Auto) 70 % (31-73) Lymphocytes (%) (Auto) 17 % (24-48) Monocytes (%) (Auto) 10 % (0-9) Eosinophils (%) (Auto) 2 % (0-3) Basophils (%) (Auto) 2 % (0-3) Neutrophils # (Auto) 5.5 x10^3/uL (1.8-7.7) Lymphocytes # (Auto) 1.3 x10^3/uL (1.0-4.8) Monocytes # (Auto) 0.7 x10^3/uL (0.0-1.1) Eosinophils # (Auto) 0.1 x10^3/uL (0.0-0.7) Basophils # (Auto) 0.1 x10^3/uL (0.0-0.2) Platelet Estimate Adequate (ADEQUATE) Large Platelets Few Giant Platelets Occ Polychromasia Slight Hypochromasia Mod Anisocytosis Slight Microcytosis Marked Sodium Level 145 mmol/L (136-145) 143 mmol/L (136-145) Potassium Level 4.1 mmol/L (3.5-5.1) 4.1 mmol/L (3.5-5.1) Chloride Level 109 mmol/L (98-107) 110 mmol/L (98-107) Carbon Dioxide Level 27 mmol/L (21-32) 26 mmol/L (21-32) Anion Gap 9 (6-14) 7 (6-14) Blood Urea Nitrogen 18 mg/dL (8-26) 15 mg/dL (8-26) Creatinine 1.0 mg/dL (0.7-1.3) 0.8 mg/dL (0.7-1.3) Estimated GFR (Cockcroft-Gault) 78.2 101.1 Glucose Level 119 mg/dL (70-99) 103 mg/dL (70-99) Calcium Level 8.2 mg/dL (8.5-10.1) 7.7 mg/dL (8.5-10.1) Troponin I Quantitative < 0.017 ng/mL (0.000-0.055) MP-Tcl-P-Type Natriuretic Peptide 785 pg/mL (0-124) Thyroid Stimulating Hormone (TSH) 1.554 uIU/mL (0.358-3.74) Urine Collection Type Unknown Urine Color Yellow Urine Clarity Clear Urine pH 7.5 (<5.0-8.0) Urine Specific Bud 1.025 (1.000-1.030) Urine Protein Negative mg/dL (NEG-TRACE) Urine Glucose (UA) Negative mg/dL (NEG) Urine Ketones (Stick) Negative mg/dL (NEG) Urine Blood Negative (NEG) Urine Nitrite Negative (NEG) Urine Bilirubin Negative (NEG) Urine Urobilinogen Dipstick 1.0 mg/dL (0.2 mg/dL) Urine Leukocyte Esterase Negative (NEG) Urine RBC 0 /HPF (0-2) Urine WBC Occ /HPF (0-4) Urine Bacteria 0 /HPF (0-FEW) Urine Mucus Slight /LPF Magnesium Level 2.2 mg/dL (1.8-2.4) Triglycerides Level 82 mg/dL (0-150) Cholesterol Level 128 mg/dL (0-200) LDL Cholesterol, Calculated 84 mg/dL (0-100) VLDL Cholesterol, Calculated 16 mg/dL (0-40) Non-HDL Cholesterol Calculated 100 mg/dL (0-129) HDL Cholesterol 28 mg/dL (40-60) Cholesterol/HDL Ratio 4.6 Assessment and Plan Assessmemt and Plan Problems Medical Problems: (1) Atrial fibrillation Status: Acute Comment Review of Relevant I have reviewed the following items anna marie (where applicable) has been applied. Labs Laboratory Tests Test 04/09/20 10:56 04/09/20 18:15 04/10/20 04:30 White Blood Count 7.8 x10^3/uL (4.0-11.0) Red Blood Count 5.73 x10^6/uL (4.30-5.70) Hemoglobin 12.1 g/dL (13.0-17.5) Hematocrit 39.2 % (39.0-53.0) Mean Corpuscular Volume 69 fL (79-100) Mean Corpuscular Hemoglobin 21 pg (25-35) Mean Corpuscular Hemoglobin Concent 31 g/dL (31-37) Red Cell Distribution Width 19.4 % (11.5-14.5) Platelet Count 237 x10^3/uL (140-400) Neutrophils (%) (Auto) 70 % (31-73) Lymphocytes (%) (Auto) 17 % (24-48) Monocytes (%) (Auto) 10 % (0-9) Eosinophils (%) (Auto) 2 % (0-3) Basophils (%) (Auto) 2 % (0-3) Neutrophils # (Auto) 5.5 x10^3/uL (1.8-7.7) Lymphocytes # (Auto) 1.3 x10^3/uL (1.0-4.8) Monocytes # (Auto) 0.7 x10^3/uL (0.0-1.1) Eosinophils # (Auto) 0.1 x10^3/uL (0.0-0.7) Basophils # (Auto) 0.1 x10^3/uL (0.0-0.2) Platelet Estimate Adequate (ADEQUATE) Large Platelets Few Giant Platelets Occ Polychromasia Slight Hypochromasia Mod Anisocytosis Slight Microcytosis Marked Sodium Level 145 mmol/L (136-145) 143 mmol/L (136-145) Potassium Level 4.1 mmol/L (3.5-5.1) 4.1 mmol/L (3.5-5.1) Chloride Level 109 mmol/L (98-107) 110 mmol/L (98-107) Carbon Dioxide Level 27 mmol/L (21-32) 26 mmol/L (21-32) Anion Gap 9 (6-14) 7 (6-14) Blood Urea Nitrogen 18 mg/dL (8-26) 15 mg/dL (8-26) Creatinine 1.0 mg/dL (0.7-1.3) 0.8 mg/dL (0.7-1.3) Estimated GFR (Cockcroft-Gault) 78.2 101.1 Glucose Level 119 mg/dL (70-99) 103 mg/dL (70-99) Calcium Level 8.2 mg/dL (8.5-10.1) 7.7 mg/dL (8.5-10.1) Troponin I Quantitative < 0.017 ng/mL (0.000-0.055) MK-Qng-P-Type Natriuretic Peptide 785 pg/mL (0-124) Thyroid Stimulating Hormone (TSH) 1.554 uIU/mL (0.358-3.74) Urine Collection Type Unknown Urine Color Yellow Urine Clarity Clear Urine pH 7.5 (<5.0-8.0) Urine Specific Bud 1.025 (1.000-1.030) Urine Protein Negative mg/dL (NEG-TRACE) Urine Glucose (UA) Negative mg/dL (NEG) Urine Ketones (Stick) Negative mg/dL (NEG) Urine Blood Negative (NEG) Urine Nitrite Negative (NEG) Urine Bilirubin Negative (NEG) Urine Urobilinogen Dipstick 1.0 mg/dL (0.2 mg/dL) Urine Leukocyte Esterase Negative (NEG) Urine RBC 0 /HPF (0-2) Urine WBC Occ /HPF (0-4) Urine Bacteria 0 /HPF (0-FEW) Urine Mucus Slight /LPF Magnesium Level 2.2 mg/dL (1.8-2.4) Triglycerides Level 82 mg/dL (0-150) Cholesterol Level 128 mg/dL (0-200) LDL Cholesterol, Calculated 84 mg/dL (0-100) VLDL Cholesterol, Calculated 16 mg/dL (0-40) Non-HDL Cholesterol Calculated 100 mg/dL (0-129) HDL Cholesterol 28 mg/dL (40-60) Cholesterol/HDL Ratio 4.6 Laboratory Tests Test 04/09/20 10:56 04/09/20 18:15 04/10/20 04:30 White Blood Count 7.8 x10^3/uL (4.0-11.0) Red Blood Count 5.73 x10^6/uL (4.30-5.70) Hemoglobin 12.1 g/dL (13.0-17.5) Hematocrit 39.2 % (39.0-53.0) Mean Corpuscular Volume 69 fL (79-100) Mean Corpuscular Hemoglobin 21 pg (25-35) Mean Corpuscular Hemoglobin Concent 31 g/dL (31-37) Red Cell Distribution Width 19.4 % (11.5-14.5) Platelet Count 237 x10^3/uL (140-400) Neutrophils (%) (Auto) 70 % (31-73) Lymphocytes (%) (Auto) 17 % (24-48) Monocytes (%) (Auto) 10 % (0-9) Eosinophils (%) (Auto) 2 % (0-3) Basophils (%) (Auto) 2 % (0-3) Neutrophils # (Auto) 5.5 x10^3/uL (1.8-7.7) Lymphocytes # (Auto) 1.3 x10^3/uL (1.0-4.8) Monocytes # (Auto) 0.7 x10^3/uL (0.0-1.1) Eosinophils # (Auto) 0.1 x10^3/uL (0.0-0.7) Basophils # (Auto) 0.1 x10^3/uL (0.0-0.2) Platelet Estimate Adequate (ADEQUATE) Large Platelets Few Giant Platelets Occ Polychromasia Slight Hypochromasia Mod Anisocytosis Slight Microcytosis Marked Sodium Level 145 mmol/L (136-145) 143 mmol/L (136-145) Potassium Level 4.1 mmol/L (3.5-5.1) 4.1 mmol/L (3.5-5.1) Chloride Level 109 mmol/L (98-107) 110 mmol/L (98-107) Carbon Dioxide Level 27 mmol/L (21-32) 26 mmol/L (21-32) Anion Gap 9 (6-14) 7 (6-14) Blood Urea Nitrogen 18 mg/dL (8-26) 15 mg/dL (8-26) Creatinine 1.0 mg/dL (0.7-1.3) 0.8 mg/dL (0.7-1.3) Estimated GFR (Cockcroft-Gault) 78.2 101.1 Glucose Level 119 mg/dL (70-99) 103 mg/dL (70-99) Calcium Level 8.2 mg/dL (8.5-10.1) 7.7 mg/dL (8.5-10.1) Troponin I Quantitative < 0.017 ng/mL (0.000-0.055) HM-Amv-C-Type Natriuretic Peptide 785 pg/mL (0-124) Thyroid Stimulating Hormone (TSH) 1.554 uIU/mL (0.358-3.74) Urine Collection Type Unknown Urine Color Yellow Urine Clarity Clear Urine pH 7.5 (<5.0-8.0) Urine Specific Bud 1.025 (1.000-1.030) Urine Protein Negative mg/dL (NEG-TRACE) Urine Glucose (UA) Negative mg/dL (NEG) Urine Ketones (Stick) Negative mg/dL (NEG) Urine Blood Negative (NEG) Urine Nitrite Negative (NEG) Urine Bilirubin Negative (NEG) Urine Urobilinogen Dipstick 1.0 mg/dL (0.2 mg/dL) Urine Leukocyte Esterase Negative (NEG) Urine RBC 0 /HPF (0-2) Urine WBC Occ /HPF (0-4) Urine Bacteria 0 /HPF (0-FEW) Urine Mucus Slight /LPF Magnesium Level 2.2 mg/dL (1.8-2.4) Triglycerides Level 82 mg/dL (0-150) Cholesterol Level 128 mg/dL (0-200) LDL Cholesterol, Calculated 84 mg/dL (0-100) VLDL Cholesterol, Calculated 16 mg/dL (0-40) Non-HDL Cholesterol Calculated 100 mg/dL (0-129) HDL Cholesterol 28 mg/dL (40-60) Cholesterol/HDL Ratio 4.6 Medications Current Medications Diltiazem HCl (Cardizem Iv Push) 20 mg 1X ONCE IVP Last administered on 04/09/20at 11:18; Start 04/09/20 at 11:00; Stop 04/09/20 at 11:01; Status DC Metoprolol Tartrate (Lopressor Vial) 5 mg 1X ONCE IVP Last administered on 04/09/20at 15:25; Start 04/09/20 at 15:15; Stop 04/09/20 at 15:16; Status DC Aspirin (Ecotrin) 325 mg 1X ONCE PO Last administered on 04/09/20at 15:25; Start 04/09/20 at 15:15; Stop 04/09/20 at 15:16; Status DC Metoprolol Tartrate (Lopressor Vial) 5 mg 1X ONCE IVP ; Start 04/09/20 at 15:15; Stop 04/09/20 at 15:16; Status DC Metoprolol Tartrate (Lopressor) 25 mg BID PO Last administered on 04/10/20at 09:02; Start 04/09/20 at 16:15 Metoprolol Tartrate (Lopressor Vial) 5 mg PRN Q6HRS PRN IVP TACHYCARDIA; Start 04/09/20 at 16:15 Digoxin (Lanoxin) 500 mcg 1X ONCE IV ; Start 04/10/20 at 10:15; Stop 04/10/20 at 10:16; Status DC Active Scripts Active Reported Nabumetone 750 Mg Tablet 1 Tab PO BID Vitals/I & O Vital Sign - Last 24 Hours 04/09/20 04/09/20 04/09/20 04/09/20 11:01 11:18 11:30 12:00 Temp 99.1 99.1 Pulse 128 121 144 90 Resp 18 20 20 B/P (MAP) 136/80 (98) 119/76 119/76 (90) 106/64 (78) Pulse Ox 100 98 98 O2 Delivery Room Air Room Air Room Air 04/09/20 04/09/20 04/09/20 04/09/20 12:30 13:00 13:45 14:37 Temp 98.3 98.3 Pulse 92 100 102 103 Resp 18 18 16 18 B/P (MAP) 108/69 (82) 113/59 (77) 119/69 (86) 119/63 (81) Pulse Ox 99 99 97 100 O2 Delivery Room Air Room Air Room Air Room Air 04/09/20 04/09/20 04/09/20 04/09/20 15:25 15:40 17:02 19:24 Pulse 128 128 B/P (MAP) 119/63 119/63 O2 Delivery Room Air Room Air 04/09/20 04/09/20 04/09/20 04/10/20 19:35 20:09 23:34 03:30 Temp 98.6 98.4 98.1 98.6 98.4 98.1 Pulse 85 104 91 72 Resp 17 18 20 B/P (MAP) 102/72 (82) 102/72 129/58 (81) 116/61 (79) Pulse Ox 97 97 98 O2 Delivery Room Air Room Air Room Air 04/10/20 04/10/20 04/10/20 07:00 08:00 09:02 Temp 98.0 98.0 Pulse 117 Resp 20 B/P (MAP) 92/68 (76) 97/67 Pulse Ox 99 O2 Delivery Room Air Room Air l Intake and Output 04/09/20 04/09/20 04/10/20 15:00 23:00 07:00 Intake Total 700 ml 400 ml Balance 700 ml 400 ml SAIDA GONZALEZ MD Apr 10, 2020 10:22
--- NOTE | 2020-04-10 10:24 | PDOC ---
PROGRESS NOTES Subjective Subjective No new complaints Objective Objective Vital Signs Date Time Temp Pulse Resp B/P (MAP) Pulse Ox O2 Delivery O2 Flow Rate FiO2 04/10/20 09:02 97/67 04/10/20 08:00 Room Air 04/10/20 07:00 98.0 117 20 99 98.0 Intake and Output 04/10/20 07:00 Intake Total 1100 ml Balance 1100 ml Intake Oral 1100 ml Physical Exam Abdomen: Soft, No tenderness Heart: Other (AFIB RVR) Extremities: No cyanosis, No edema General: Alert, Oriented X3, Cooperative, No acute distress HEENT: Atraumatic, Mucous membr. moist/pink Lungs: Clear to auscultation, Normal air movement Neuro: Normal speech, Sensation intact Psych/Mental Status: Mental status NL, Mood NL Skin: No breakdown, No significant lesion Assessment Assessment 1. AFIB RVR: new HPF2-VS3-Jvsc score 0 2. Hx of PUD/: remote in 2000 3. Microcytic hypochromic anemia: Fe def per pt Recommendations 1. TSH, Mg, TTE when rate is controlled 2. Heart rate elevated despite beta-blockers. Start digoxin for rate control. 3. MCOT as an outpt 4. If pt remains in AFIB prior to DC then will consider starting on eliquis for outpt CVN consideration 5. Discussed avoidance of routine NSAID and utilize topicals. 6. Consider for outpt GAUTAM w/u Plan Plan of Care Problems Medical Problems: (1) Atrial fibrillation Status: Acute Comment Review of Relevant I have reviewed the following items anna marie (where applicable) has been applied. Labs Laboratory Tests Test 04/09/20 10:56 04/09/20 18:15 04/10/20 04:30 White Blood Count 7.8 x10^3/uL (4.0-11.0) Red Blood Count 5.73 x10^6/uL (4.30-5.70) Hemoglobin 12.1 g/dL (13.0-17.5) Hematocrit 39.2 % (39.0-53.0) Mean Corpuscular Volume 69 fL (79-100) Mean Corpuscular Hemoglobin 21 pg (25-35) Mean Corpuscular Hemoglobin Concent 31 g/dL (31-37) Red Cell Distribution Width 19.4 % (11.5-14.5) Platelet Count 237 x10^3/uL (140-400) Neutrophils (%) (Auto) 70 % (31-73) Lymphocytes (%) (Auto) 17 % (24-48) Monocytes (%) (Auto) 10 % (0-9) Eosinophils (%) (Auto) 2 % (0-3) Basophils (%) (Auto) 2 % (0-3) Neutrophils # (Auto) 5.5 x10^3/uL (1.8-7.7) Lymphocytes # (Auto) 1.3 x10^3/uL (1.0-4.8) Monocytes # (Auto) 0.7 x10^3/uL (0.0-1.1) Eosinophils # (Auto) 0.1 x10^3/uL (0.0-0.7) Basophils # (Auto) 0.1 x10^3/uL (0.0-0.2) Platelet Estimate Adequate (ADEQUATE) Large Platelets Few Giant Platelets Occ Polychromasia Slight Hypochromasia Mod Anisocytosis Slight Microcytosis Marked Sodium Level 145 mmol/L (136-145) 143 mmol/L (136-145) Potassium Level 4.1 mmol/L (3.5-5.1) 4.1 mmol/L (3.5-5.1) Chloride Level 109 mmol/L (98-107) 110 mmol/L (98-107) Carbon Dioxide Level 27 mmol/L (21-32) 26 mmol/L (21-32) Anion Gap 9 (6-14) 7 (6-14) Blood Urea Nitrogen 18 mg/dL (8-26) 15 mg/dL (8-26) Creatinine 1.0 mg/dL (0.7-1.3) 0.8 mg/dL (0.7-1.3) Estimated GFR (Cockcroft-Gault) 78.2 101.1 Glucose Level 119 mg/dL (70-99) 103 mg/dL (70-99) Calcium Level 8.2 mg/dL (8.5-10.1) 7.7 mg/dL (8.5-10.1) Troponin I Quantitative < 0.017 ng/mL (0.000-0.055) WI-Zrg-X-Type Natriuretic Peptide 785 pg/mL (0-124) Thyroid Stimulating Hormone (TSH) 1.554 uIU/mL (0.358-3.74) Urine Collection Type Unknown Urine Color Yellow Urine Clarity Clear Urine pH 7.5 (<5.0-8.0) Urine Specific [place] 1.025 (1.000-1.030) Urine Protein Negative mg/dL (NEG-TRACE) Urine Glucose (UA) Negative mg/dL (NEG) Urine Ketones (Stick) Negative mg/dL (NEG) Urine Blood Negative (NEG) Urine Nitrite Negative (NEG) Urine Bilirubin Negative (NEG) Urine Urobilinogen Dipstick 1.0 mg/dL (0.2 mg/dL) Urine Leukocyte Esterase Negative (NEG) Urine RBC 0 /HPF (0-2) Urine WBC Occ /HPF (0-4) Urine Bacteria 0 /HPF (0-FEW) Urine Mucus Slight /LPF Magnesium Level 2.2 mg/dL (1.8-2.4) Triglycerides Level 82 mg/dL (0-150) Cholesterol Level 128 mg/dL (0-200) LDL Cholesterol, Calculated 84 mg/dL (0-100) VLDL Cholesterol, Calculated 16 mg/dL (0-40) Non-HDL Cholesterol Calculated 100 mg/dL (0-129) HDL Cholesterol 28 mg/dL (40-60) Cholesterol/HDL Ratio 4.6 Medications Current Medications Aspirin (Ecotrin) 325 mg 1X ONCE PO Last administered on 04/09/20at 15:25; Start 04/09/20 at 15:15; Stop 04/09/20 at 15:16; Status DC Digoxin (Lanoxin) 500 mcg 1X ONCE IV ; Start 04/10/20 at 10:15; Stop 04/10/20 at 10:16; Status DC Diltiazem HCl (Cardizem Iv Push) 20 mg 1X ONCE IVP Last administered on 04/09/20at 11:18; Start 04/09/20 at 11:00; Stop 04/09/20 at 11:01; Status DC Metoprolol Tartrate (Lopressor Vial) 5 mg 1X ONCE IVP Last administered on 04/09/20at 15:25; Start 04/09/20 at 15:15; Stop 04/09/20 at 15:16; Status DC Metoprolol Tartrate (Lopressor Vial) 5 mg 1X ONCE IVP ; Start 04/09/20 at 15:15; Stop 04/09/20 at 15:16; Status DC Metoprolol Tartrate (Lopressor Vial) 5 mg PRN Q6HRS PRN IVP TACHYCARDIA; Start 04/09/20 at 16:15 Metoprolol Tartrate (Lopressor) 25 mg BID PO Last administered on 04/10/20at 09 :02; Start 04/09/20 at 16:15 Vitals/I & O Vital Sign - Last 24 Hours 04/09/20 04/09/20 04/09/20 04/09/20 11:01 11:18 11:30 12:00 Temp 99.1 99.1 Pulse 128 121 144 90 Resp 18 20 20 B/P (MAP) 136/80 (98) 119/76 119/76 (90) 106/64 (78) Pulse Ox 100 98 98 O2 Delivery Room Air Room Air Room Air 04/09/20 04/09/20 04/09/20 04/09/20 12:30 13:00 13:45 14:37 Temp 98.3 98.3 Pulse 92 100 102 103 Resp 18 18 16 18 B/P (MAP) 108/69 (82) 113/59 (77) 119/69 (86) 119/63 (81) Pulse Ox 99 99 97 100 O2 Delivery Room Air Room Air Room Air Room Air 04/09/20 04/09/20 04/09/20 04/09/20 15:25 15:40 17:02 19:24 Pulse 128 128 B/P (MAP) 119/63 119/63 O2 Delivery Room Air Room Air 04/09/20 04/09/20 04/09/20 04/10/20 19:35 20:09 23:34 03:30 Temp 98.6 98.4 98.1 98.6 98.4 98.1 Pulse 85 104 91 72 Resp 17 18 20 B/P (MAP) 102/72 (82) 102/72 129/58 (81) 116/61 (79) Pulse Ox 97 97 98 O2 Delivery Room Air Room Air Room Air 04/10/20 04/10/20 04/10/20 07:00 08:00 09:02 Temp 98.0 98.0 Pulse 117 Resp 20 B/P (MAP) 92/68 (76) 97/67 Pulse Ox 99 O2 Delivery Room Air Room Air Intake and Output 04/09/20 04/09/20 04/10/20 15:00 23:00 07:00 Intake Total 700 ml 400 ml Balance 700 ml 400 ml DIANE HANSON MD Apr 10, 2020 10:24
[2020-04-10 10:51] VITALS: BP 108/73
[2020-04-10 15:00] VITALS: BP 114/46
[2020-04-10 19:00] VITALS: BP 104/65
[2020-04-10 23:25] VITALS: BP 106/64
[2020-04-11 03:12] VITALS: BP 108/67
[2020-04-11 07:00] VITALS: BP 102/63
[2020-04-11 07:39] LABS: CALCIUM 7.7 mg/dL (8.5-10.1); CREATININE 0.8 mg/dL (0.7-1.3); GFR 101.1; POTASSIUM 4.3 mmol/L (3.5-5.1)
[2020-04-11] MEDS: DIGOXIN 125 MCG TABLET. PO SCH (09:03)
[2020-04-11] MEDS: METOPROLOL TART IMMED RELEASE 25 MG TABLET. PO SCH ×2 (09:03→20:52)
[2020-04-11 10:58] VITALS: BP 112/72
[2020-04-11] MEDS ORDERED: DIGOXIN IV 500 MCG/2 ML AMPUL. IV ONE (11:00)
--- NOTE | 2020-04-11 11:43 | PDOC ---
PROGRESS NOTES History of Present Illness History of Present Illness ASSESSMENT AND PLAN: Atrial fibrillation with rapid ventricular response. morbid obesity Transmitral Doppler flow pattern is Grade I-abnormal relaxation pattern. 05/2017 AFIB RVR: new [id number]-Wven score 0 Hx of PUD/: remote in 2000 Microcytic hypochromic anemia: Fe def admitted. cvc bed IV Cardizem. consider anticoagulation. WITH ELIQUIS IF REMAINS in a-fib Consult Cardiology. Home meds, DVT prophylaxis. Full code. serial enzymes, serial EKGs. TSH ECHO wt loss diet discussed 04/11 UP IN [place], HR 140-160 A FIB 29 min pt exam, chart review, > 50% of time spent with exam, chart review, pt care coordination Vitals Vitals Vital Signs Date Time Temp Pulse Resp B/P (MAP) Pulse Ox O2 Delivery O2 Flow Rate FiO2 04/11/20 11:20 105 112/72 04/11/20 10:58 98.4 18 96 Room Air 98.4 Physical Exam General: Alert, Oriented X3, Cooperative, No acute distress Heart: Other (AFIB RVR) Lungs: Clear Abdomen: Soft, No tenderness Extremities: No cyanosis, No edema Skin: No breakdown, No significant lesion Labs LABS Laboratory Tests Test 04/11/20 06:40 Sodium Level 145 mmol/L (136-145) Potassium Level 4.3 mmol/L (3.5-5.1) Chloride Level 110 mmol/L (98-107) Carbon Dioxide Level 27 mmol/L (21-32) Anion Gap 8 (6-14) Blood Urea Nitrogen 13 mg/dL (8-26) Creatinine 0.8 mg/dL (0.7-1.3) Estimated GFR (Cockcroft-Gault) 101.1 Glucose Level 93 mg/dL (70-99) Calcium Level 7.7 mg/dL (8.5-10.1) Assessment and Plan Assessmemt and Plan Problems Medical Problems: (1) Atrial fibrillation Status: Acute Comment Review of Relevant I have reviewed the following items anna marie (where applicable) has been applied. Labs Laboratory Tests Test 04/09/20 18:15 04/10/20 04:30 04/11/20 06:40 Urine Collection Type Unknown Urine Color Yellow Urine Clarity Clear Urine pH 7.5 (<5.0-8.0) Urine Specific [place] 1.025 (1.000-1.030) Urine Protein Negative mg/dL (NEG-TRACE) Urine Glucose (UA) Negative mg/dL (NEG) Urine Ketones (Stick) Negative mg/dL (NEG) Urine Blood Negative (NEG) Urine Nitrite Negative (NEG) Urine Bilirubin Negative (NEG) Urine Urobilinogen Dipstick 1.0 mg/dL (0.2 mg/dL) Urine Leukocyte Esterase Negative (NEG) Urine RBC 0 /HPF (0-2) Urine WBC Occ /HPF (0-4) Urine Bacteria 0 /HPF (0-FEW) Urine Mucus Slight /LPF Sodium Level 143 mmol/L (136-145) 145 mmol/L (136-145) Potassium Level 4.1 mmol/L (3.5-5.1) 4.3 mmol/L (3.5-5.1) Chloride Level 110 mmol/L (98-107) 110 mmol/L (98-107) Carbon Dioxide Level 26 mmol/L (21-32) 27 mmol/L (21-32) Anion Gap 7 (6-14) 8 (6-14) Blood Urea Nitrogen 15 mg/dL (8-26) 13 mg/dL (8-26) Creatinine 0.8 mg/dL (0.7-1.3) 0.8 mg/dL (0.7-1.3) Estimated GFR (Cockcroft-Gault) 101.1 101.1 Glucose Level 103 mg/dL (70-99) 93 mg/dL (70-99) Calcium Level 7.7 mg/dL (8.5-10.1) 7.7 mg/dL (8.5-10.1) Magnesium Level 2.2 mg/dL (1.8-2.4) Triglycerides Level 82 mg/dL (0-150) Cholesterol Level 128 mg/dL (0-200) LDL Cholesterol, Calculated 84 mg/dL (0-100) VLDL Cholesterol, Calculated 16 mg/dL (0-40) Non-HDL Cholesterol Calculated 100 mg/dL (0-129) HDL Cholesterol 28 mg/dL (40-60) Cholesterol/HDL Ratio 4.6 Laboratory Tests Test 04/11/20 06:40 Sodium Level 145 mmol/L (136-145) Potassium Level 4.3 mmol/L (3.5-5.1) Chloride Level 110 mmol/L (98-107) Carbon Dioxide Level 27 mmol/L (21-32) Anion Gap 8 (6-14) Blood Urea Nitrogen 13 mg/dL (8-26) Creatinine 0.8 mg/dL (0.7-1.3) Estimated GFR (Cockcroft-Gault) 101.1 Glucose Level 93 mg/dL (70-99) Calcium Level 7.7 mg/dL (8.5-10.1) Medications Current Medications Diltiazem HCl (Cardizem Iv Push) 20 mg 1X ONCE IVP Last administered on 04/09/20at 11:18; Start 04/09/20 at 11:00; Stop 04/09/20 at 11:01; Status DC Metoprolol Tartrate (Lopressor Vial) 5 mg 1X ONCE IVP Last administered on 04/09/20at 15:25; Start 04/09/20 at 15:15; Stop 04/09/20 at 15:16; Status DC Aspirin (Ecotrin) 325 mg 1X ONCE PO Last administered on 04/09/20at 15:25; Start 04/09/20 at 15:15; Stop 04/09/20 at 15:16; Status DC Metoprolol Tartrate (Lopressor Vial) 5 mg 1X ONCE IVP ; Start 04/09/20 at 15:15; Stop 04/09/20 at 15:16; Status DC Metoprolol Tartrate (Lopressor) 25 mg BID PO Last administered on 04/11/20at 09:03; Start 04/09/20 at 16:15 Metoprolol Tartrate (Lopressor Vial) 5 mg PRN Q6HRS PRN IVP TACHYCARDIA Last administered on 04/10/20at 17:51; Start 04/09/20 at 16:15 Digoxin (Lanoxin) 500 mcg 1X ONCE IV Last administered on 04/10/20at 13:00; Start 04/10/20 at 10:15; Stop 04/10/20 at 10:16; Status DC Digoxin (Lanoxin) 125 mcg DAILY PO Last administered on 04/11/20at 09:03; Start 04/11/20 at 09:00 Digoxin (Lanoxin) 250 mcg 1X ONCE IV Last administered on 04/11/20at 11:20; Start 04/11/20 at 11:00; Stop 04/11/20 at 11:05; Status DC Active Scripts Active Reported Nabumetone 750 Mg Tablet 1 Tab PO BID Vitals/I & O Vital Sign - Last 24 Hours 04/10/20 04/10/20 04/10/20 04/10/20 13:00 15:00 17:51 19:00 Temp 98.2 98.6 98.2 98.6 Pulse 133 139 133 118 Resp 19 B/P (MAP) 108/73 114/46 (68) 116/57 104/65 (78) Pulse Ox 97 94 O2 Delivery Room Air Room Air 04/10/20 04/10/20 04/10/20 04/11/20 19:40 20:50 23:25 03:12 Temp 98.7 98.2 98.7 98.2 Pulse 118 103 101 Resp 18 18 B/P (MAP) 104/65 106/64 (78) 108/67 (81) Pulse Ox 96 95 O2 Delivery Room Air Room Air Room Air 04/11/20 04/11/20 04/11/20 04/11/20 07:00 08:00 09:03 09:03 Temp 98.3 98.3 Pulse 54 133 133 Resp 18 B/P (MAP) 102/63 (76) 102/63 102/63 Pulse Ox 95 O2 Delivery Room Air Room Air 04/11/20 04/11/20 10:58 11:20 Temp 98.4 98.4 Pulse 105 105 Resp 18 B/P (MAP) 112/72 (85) 112/72 Pulse Ox 96 O2 Delivery Room Air Intake and Output 04/10/20 04/10/20 04/11/20 15:00 23:00 07:00 Intake Total 480 ml 800 ml Balance 480 ml 800 ml SAIDA GONZALEZ MD Apr 11, 2020 11:43
--- NOTE | 2020-04-11 13:17 | PDOC ---
PROGRESS NOTES Subjective Subjective Denied any chest pain or palpitations Objective Objective Vital Signs Date Time Temp Pulse Resp B/P (MAP) Pulse Ox O2 Delivery O2 Flow Rate FiO2 04/11/20 11:20 105 112/72 04/11/20 10:58 98.4 18 96 Room Air 98.4 Intake and Output 04/11/20 07:00 Intake Total 1280 ml Balance 1280 ml Intake Oral 1280 ml # Voids 8 Physical Exam Abdomen: Soft, No tenderness Heart: Other (AFIB RVR) Extremities: No cyanosis, No edema General: Alert, Oriented X3, Cooperative, No acute distress HEENT: Atraumatic, Mucous membr. moist/pink Lungs: Clear to auscultation, Normal air movement Neuro: Normal speech, Sensation intact Psych/Mental Status: Mental status NL, Mood NL Skin: No breakdown, No significant lesion Assessment Assessment 1. AFIB RVR: new onset, heart rate better controlled with oral digoxin. However, this increased with activity earlier today. Patient did not receive complete loading dose of intravenous digoxin. We will give 1 additional dose of 0.25 mg IV. Blood pressure marginal and hence cannot uptitrate beta blockers. [id number]-Ouwo score 0. However, since patient has persistent atrial fibrillation, we will start Eliquis in preparation for outpatient cardioversion in 3 to 4 weeks. Check 2D echocardiogram as an outpatient. 2. Hx of PUD/: remote in 2000 3. Microcytic hypochromic anemia: Fe def per pt Plan Plan of Care Problems Medical Problems: (1) Atrial fibrillation Status: Acute Comment Review of Relevant I have reviewed the following items anna marie (where applicable) has been applied. Labs Laboratory Tests Test 04/11/20 06:40 Sodium Level 145 mmol/L (136-145) Potassium Level 4.3 mmol/L (3.5-5.1) Chloride Level 110 mmol/L (98-107) Carbon Dioxide Level 27 mmol/L (21-32) Anion Gap 8 (6-14) Blood Urea Nitrogen 13 mg/dL (8-26) Creatinine 0.8 mg/dL (0.7-1.3) Estimated GFR (Cockcroft-Gault) 101.1 Glucose Level 93 mg/dL (70-99) Calcium Level 7.7 mg/dL (8.5-10.1) Medications Current Medications Digoxin (Lanoxin) 125 mcg DAILY PO Last administered on 04/11/20at 09:03; Start 04/11/20 at 09:00 Digoxin (Lanoxin) 250 mcg 1X ONCE IV Last administered on 04/11/20at 11:20; Start 04/11/20 at 11:00; Stop 04/11/20 at 11:05; Status DC Vitals/I & O Vital Sign - Last 24 Hours 04/10/20 04/10/20 04/10/20 04/10/20 15:00 17:51 19:00 19:40 Temp 98.2 98.6 98.2 98.6 Pulse 139 133 118 Resp 22 19 B/P (MAP) 114/46 (68) 116/57 104/65 (78) Pulse Ox 97 94 O2 Delivery Room Air Room Air Room Air 04/10/20 04/10/20 04/11/20 04/11/20 20:50 23:25 03:12 07:00 Temp 98.7 98.2 98.3 98.7 98.2 98.3 Pulse 118 103 101 54 Resp 18 18 18 B/P (MAP) 104/65 106/64 (78) 108/67 (81) 102/63 (76) Pulse Ox 96 95 95 O2 Delivery Room Air Room Air Room Air 04/11/20 04/11/20 04/11/20 04/11/20 08:00 09:03 09:03 10:58 Temp 98.4 98.4 Pulse 133 133 105 Resp 18 B/P (MAP) 102/63 102/63 112/72 (85) Pulse Ox 96 O2 Delivery Room Air Room Air 04/11/20 11:20 Pulse 105 B/P (MAP) 112/72 Intake and Output 04/10/20 04/10/20 04/11/20 15:00 23:00 07:00 Intake Total 480 ml 800 ml Balance 480 ml 800 ml DIANE HANSON MD Apr 11, 2020 13:17
[2020-04-11 14:45] VITALS: BP 111/66
[2020-04-11] MEDS: APIXABAN 5 MG TABLET. PO SCH ×2 (17:39→20:52)
[2020-04-11 19:00] VITALS: BP 121/74
[2020-04-11 23:00] VITALS: BP 115/75
[2020-04-12 02:39] VITALS: BP 118/75
[2020-04-12 07:15] VITALS: BP 116/59
[2020-04-12] MEDS: APIXABAN 5 MG TABLET. PO SCH (08:14)
[2020-04-12] MEDS: DIGOXIN 125 MCG TABLET. PO SCH (08:14)
[2020-04-12] MEDS: METOPROLOL TART IMMED RELEASE 25 MG TABLET. PO SCH (08:14)
--- NOTE | 2020-04-12 09:31 | PDOC ---
PROGRESS NOTES Chief Complaint Chief Complaint A/P: Atrial fibrillation with rapid ventricular response. morbid obesity Transmitral Doppler flow pattern is Grade I-abnormal relaxation pattern. 05/2017 AFIB RVR: new [id number] score 0 Hx of PUD/: remote in 2000 Microcytic hypochromic anemia: Fe def History of Present Illness History of Present Illness Mr Alvarez is a 54yo M w/ PMHx morbid obesity, GI bleed, Peptic Ulcer disease, GERD who came to ED c/o palpitations, was sent to ED by his PCP noted that he is in AFib with RVR. Was started on IV Cardizem with cardiology consultation, admitted for further care. 04/11 UP IN [place], HR 140-160 A FIB Overnight in afib still. Started on eliquis with plans for outpatient cardioversion in 3-4 weeks. He still feels palpitations currently. Heart rate in 140s when he stands. Discussed with he and his at bedside today. Plan: Would like to increase uptitrate beta-brendon prior to DC. Will discuss with cardiology. 29 min pt exam, chart review, > 50% of time spent with exam, chart review, pt care coordination Vitals Vitals Vital Signs Date Time Temp Pulse Resp B/P (MAP) Pulse Ox O2 Delivery O2 Flow Rate FiO2 04/12/20 08:14 138 116/59 04/12/20 08:00 Room Air 04/12/20 07:15 98.4 20 98 98.4 Physical Exam General: Alert, Oriented X3, Cooperative, No acute distress Heart: Other (AFIB RVR) Lungs: Clear Abdomen: Soft, No tenderness Extremities: No cyanosis, No edema Skin: No breakdown, No significant lesion Assessment and Plan Assessmemt and Plan Problems Medical Problems: (1) Atrial fibrillation Status: Acute Comment Review of Relevant I have reviewed the following items anna marie (where applicable) has been applied. Labs Laboratory Tests Test 04/11/20 06:40 Sodium Level 145 mmol/L (136-145) Potassium Level 4.3 mmol/L (3.5-5.1) Chloride Level 110 mmol/L (98-107) Carbon Dioxide Level 27 mmol/L (21-32) Anion Gap 8 (6-14) Blood Urea Nitrogen 13 mg/dL (8-26) Creatinine 0.8 mg/dL (0.7-1.3) Estimated GFR (Cockcroft-Gault) 101.1 Glucose Level 93 mg/dL (70-99) Calcium Level 7.7 mg/dL (8.5-10.1) Medications Current Medications Diltiazem HCl (Cardizem Iv Push) 20 mg 1X ONCE IVP Last administered on 04/09/20at 11:18; Start 04/09/20 at 11:00; Stop 04/09/20 at 11:01; Status DC Metoprolol Tartrate (Lopressor Vial) 5 mg 1X ONCE IVP Last administered on 04/09/20at 15:25; Start 04/09/20 at 15:15; Stop 04/09/20 at 15:16; Status DC Aspirin (Ecotrin) 325 mg 1X ONCE PO Last administered on 04/09/20at 15:25; Start 04/09/20 at 15:15; Stop 04/09/20 at 15:16; Status DC Metoprolol Tartrate (Lopressor Vial) 5 mg 1X ONCE IVP ; Start 04/09/20 at 15:15; Stop 04/09/20 at 15:16; Status DC Metoprolol Tartrate (Lopressor) 25 mg BID PO Last administered on 04/12/20at 08:14; Start 04/09/20 at 16:15 Metoprolol Tartrate (Lopressor Vial) 5 mg PRN Q6HRS PRN IVP TACHYCARDIA Last administered on 04/10/20at 17:51; Start 04/09/20 at 16:15 Digoxin (Lanoxin) 500 mcg 1X ONCE IV Last administered on 04/10/20at 13:00; Start 04/10/20 at 10:15; Stop 04/10/20 at 10:16; Status DC Digoxin (Lanoxin) 125 mcg DAILY PO Last administered on 04/12/20at 08:14; Start 04/11/20 at 09:00 Digoxin (Lanoxin) 250 mcg 1X ONCE IV Last administered on 04/11/20at 11:20; Start 04/11/20 at 11:00; Stop 04/11/20 at 11:05; Status DC Apixaban (Eliquis) 5 mg BID PO Last administered on 04/12/20at 08:14; Start 04/11/20 at 14:30 Active Scripts Active Reported Nabumetone 750 Mg Tablet 1 Tab PO BID Vitals/I & O Vital Sign - Last 24 Hours 04/11/20 04/11/20 04/11/20 04/11/20 10:58 11:20 14:45 19:00 Temp 98.4 98.5 98.7 98.4 98.5 98.7 Pulse 105 105 106 163 Resp 18 18 19 B/P (MAP) 112/72 (85) 112/72 111/66 (81) 121/74 (90) Pulse Ox 96 98 98 O2 Delivery Room Air Room Air Room Air 04/11/20 04/11/20 04/11/20 04/12/20 20:00 20:52 23:00 02:39 Temp 98.6 98.5 98.6 98.5 Pulse 135 90 113 Resp 18 18 B/P (MAP) 121/74 115/75 (88) 118/75 (89) Pulse Ox 96 96 O2 Delivery Room Air Room Air Room Air 04/12/20 04/12/20 04/12/20 04/12/20 07:15 08:00 08:14 08:14 Temp 98.4 98.4 Pulse 123 138 138 Resp 20 B/P (MAP) 116/59 (78) 116/59 116/59 Pulse Ox 98 O2 Delivery Room Air Room Air Intake and Output 04/11/20 04/11/20 04/12/20 15:00 23:00 07:00 Intake Total 480 ml 740 ml 200 ml Balance 480 ml 740 ml 200 ml YAMILA MUNOZ MD Apr 12, 2020 09:31
[2020-04-12 11:00] VITALS: BP 116/59
--- NOTE | 2020-04-12 12:46 | CARD ---
MR#: [id number] Date of Study: 04/12/2020 Ordering Physician: HONEY OSPINA, Referring Physician: HONEY OSPINA, Tech: Christal Ledesma APPROVED REPORT EXAM: Two-dimensional and M-mode echocardiogram with Doppler and color Doppler. Other Information Quality : AverageHR: 102bpm INDICATION Atrial Fibrillation 2D DIMENSIONS RVDd3.7 (2.9-3.5cm)Left Atrium(2D)3.9 (1.6-4.0cm) IVSd1.1 (0.7-1.1cm)Aortic Root(2D)3.4 (2.0-3.7cm) LVDd5.8 (3.9-5.9cm)LVOT Diameter2.3 (1.8-2.4cm) PWd1.1 (0.7-1.1cm)LVDs3.6 (2.5-4.0cm) FS (%) 37.5 %SV110.4 ml LVEF(%)66.8 (>50%) Aortic Valve AoV Peak Marco A.103.6cm/sAoV VTI17.3cm AO Peak GR.4.3mmHgLVOT Peak Marco A.80.9cm/s LVOT VTI 15.69cmAO Mean GR.2mmHg GAYATRI (VMAX)2.92ys3IWS (VTI)3.89cm2 Mitral Valve MV E Izaetbtz08.1cm/sMV E Mean Gr.1mmHg TDI E/Lateral E'6.6E/Medial E'6.8 Pulmonary Valve PV Peak Fkgqwkox57.0cm/sPV Peak Grad.3mmHg Tricuspid Valve TR P. [id number]/sRAP [id number] TR Peak Gr.83kpDpLSRB84yjQn LEFT VENTRICLE The left ventricle is normal size. There is borderline to mild concentric left ventricular hypertroph y. The left ventricular systolic function is normal and the ejection fraction is within normal range. The Ejection Fraction is 50-55%. There is normal LV segmental wall motion. Tissue Doppler imaging re veals moderate left ventricular diastolic dysfunction. RIGHT VENTRICLE The right ventricle is mildly dilated. There is normal right ventricular wall thickness. The right ve ntricular systolic function is normal. ATRIA The left atrium size is normal. The right atrium is mildly dilated. The interatrial septum is intact with no evidence for an atrial septal defect or patent foramen ovale as noted on 2-D or Doppler imagi ng. AORTIC VALVE The aortic valve is sclerotic and trileaflet Doppler and Color Flow revealed no significant aortic re gurgitation. There is no significant aortic valvular stenosis. MITRAL VALVE The mitral valve is normal in structure and function. There is no evidence of mitral valve prolapse. There is no mitral valve stenosis. Doppler and Color-flow revealed trace mitral regurgitation. TRICUSPID VALVE The tricuspid valve is normal in structure and function. Doppler and Color Flow revealed trace tricus pid regurgitation with an estimated PAP of 26 mmHg. There is no tricuspid valve stenosis. PULMONIC VALVE The pulmonic valve is not well visualized. Doppler and Color Flow revealed trace pulmonic valvular re gurgitation. There is no pulmonic valvular stenosis. GREAT VESSELS The aortic root is normal in size. The IVC is normal in size and collapses >50% with inspiration. PERICARDIAL EFFUSION There is no evidence of significant pericardial effusion. Critical Notification Critical Value: No <Conclusion> The left ventricular systolic function is normal and the ejection fraction is within normal range. Th e Ejection Fraction is 50-55%. There is normal LV segmental wall motion. Tissue Doppler imaging reveals moderate left ventricular diastolic dysfunction. The right ventricle is mildly dilated. Signed by : Alexey Naylor, Electronically Approved : 04/12/2020 12:45:29
--- NOTE | 2020-04-12 13:46 | PDOC ---
ADAM DOWLING APRN 04/12/20 1346: CARDIO Progress Notes Date and Time Date of Service 04/12/20 Time of Evaluation 1310 Subjective Subjective: No Chest Pain, No shortness of breath Vitals Vitals Vital Signs Date Time Temp Pulse Resp B/P (MAP) Pulse Ox O2 Delivery O2 Flow Rate FiO2 04/12/20 11:00 98.7 87 18 116/59 (78) 96 Room Air 98.7 Weight Weight [ ] Input and Output Intake and Output Intake and Output 04/12/20 06:59 Intake Total 1420 ml Balance 1420 ml Intake Oral 1420 ml # Voids 6 Physical Exam HEENT: Neck Supple W Full Motion Chest: Symmetric LUNGS: Clear to Auscultation Heart: RRR Abdomen: Soft N/T Extremities: No Edema Neurology: alert, oriented, follow commands Assessment Assessment 1. AFIB RVR: new onset, heart rate elevated this morning despite addition of digoxin. Echo with preserved LV systolic function. Converted back to SR this afternoon around 2pm 2. Hx of PUD 3. Anemia Recommendations Continue dig, metoprolol for rate control Eliquis for now Outpatient event monitor to guide to guide therapy Supportive care Follow up in out office with Dr. Naylor as scheduled Justicifation of Admission Dx: Justifications for Admission: Justification of Admission Dx: Yes CHF: Cardiac Arrhythmias ROGELIO NAYLOR MD 04/13/20 1303: CARDIO Progress Notes Plan Plan Patient seen and examined. Agree with above nurse practitioner note. Case discussed with his . Currently in sinus rhythm. No indication for an ticoagulation. Discussed with PCP. Outpt event monitoring. ADAM DOWLING APRN Apr 12, 2020 13:46 ROGELIO NAYLOR MD Apr 13, 2020 13:03
--- NOTE | 2020-04-12 13:53 | NUR ---
SS following for discharge planning. SS reviewed pt chart and discussed with pt RN. Pt is from home with spouse and is currently on room air. Cardiology recommending cardioversion. SS will continue to follow for discharge planning.
[2020-04-12 15:00] VITALS: BP 111/60
[2020-04-12] MEDS ORDERED: ASPI325T11 PO (15:59)
[2020-04-12] MEDS ORDERED: METO25TA4 PO (15:59)
--- NOTE | 2020-04-12 16:03 | PDOC3 ---
Discharge Summary Visit Information Date of Admission: Apr 09, 2020 Date of Discharge: Apr 12, 2020 Admitting Diagnosis: New onset atrial fibrillation Final Diagnosis Problems Medical Problems: (1) Atrial fibrillation Status: Acute Brief Hospital Course Allergies Allergies Coded Allergies Type Severity Reaction Last Updated Verified No Known Drug Allergies 05/29/17 No Vital Signs Vital Signs Date Time Temp Pulse Resp B/P (MAP) Pulse Ox O2 Delivery O2 Flow Rate FiO2 04/12/20 15:00 98.7 90 18 111/60 (77) 96 Room Air 98.7 Lab Results Laboratory Tests Test 04/11/20 06:40 Sodium Level 145 mmol/L (136-145) Potassium Level 4.3 mmol/L (3.5-5.1) Chloride Level 110 mmol/L (98-107) Carbon Dioxide Level 27 mmol/L (21-32) Anion Gap 8 (6-14) Blood Urea Nitrogen 13 mg/dL (8-26) Creatinine 0.8 mg/dL (0.7-1.3) Estimated GFR (Cockcroft-Gault) 101.1 Glucose Level 93 mg/dL (70-99) Calcium Level 7.7 mg/dL (8.5-10.1) Brief Hospital Course Mr Alvarez is a 54yo M w/ PMHx morbid obesity, GI bleed, Peptic Ulcer disease, GERD who came to ED c/o palpitations, was sent to ED by his PCP noted that he is in AFib with RVR. Was started on IV Cardizem with cardiology consultation, admitted for further care. 04/11 UP IN [place], HR 140-160 A FIB Overnight in afib still. Started on eliquis with plans for outpatient cardioversion in 3-4 weeks. He still feels palpitations currently. Heart rate in 140s when he stands. Discussed with he and his at bedside. At 1430 he converted to NSR on BB. D/w cardiology to continue BB and d/c digoxin and d/c eliquis, ok to go home on ASA and BB. Problem list: Atrial fibrillation with rapid ventricular response. morbid obesity Transmitral Doppler flow pattern is Grade I-abnormal relaxation pattern. 05/2017 AFIB RVR: new [id number]-Ygdb score 0 Hx of PUD/: remote in 2000 Microcytic hypochromic anemia: Fe def Greater than 30 minutes spent on d/c Discharge Information Condition at Discharge: Improved Follow Up: Weeks (1) Disposition/Orders: D/C to Home Scheduled Aspirin (Aspirin Ec) 325 Mg Tablet.dr, 1 TAB PO DAILY for Atrial fibrillation for 90 Days, #90 Ref 3 Prescribed by: YAMILA MUNOZ MD on 04/12/20 1559 Metoprolol Tartrate (Metoprolol Tartrate) 25 Mg Tablet, 25 MG PO BID for Atrial fibrillation for 90 Days, #180 Ref 2 Prescribed by: YAMILA MUNOZ MD on 04/12/20 155 Discontinued Medications Nabumetone (Nabumetone) 750 Mg Tablet, 1 TAB PO BID for pain, #60 Ref 1 (Reported) Entered as Reported by: LISANDRA MARQUIS on 04/09/201452 Last Taken: Unknown Dose on 04/08/20 Last Action: New Order on 04/09/201452 by LISANDRA MARQUIS Justicifation of Admission Dx: Justifications for Admission: Justification of Admission Dx: Yes CHF: Cardiac Arrhythmias YAMILA MUNOZ MD Apr 12, 2020 16:03
--- NOTE | 2020-04-12 17:38 | NUR ---
Discharge Note: LILIANA CHAVIRA2 [facility] Discharge instructions and discharge home medications reviewed with Patient and a copy given. All questions have been answered and understanding verbalized. The following instructions and handouts were given: palpitations, afib, cardiac event monitor Discontinued lines and drains: Peripheral IV intact. Patient discharged to Home or Self Care with Spouse via Ambulated
== END 2020-04-12 17:40 | disposition home or self-care (01) | DRG 309 ==
LOC: ER 10:38 → 2 SOUTH 13:00
PROVIDERS: ADMIT Internal Medicine; ATTEND Internal Medicine
DX: I48.19 Other persistent atrial fibrillation (principal); G93.40 Encephalopathy, unspecified; E78.5 Hyperlipidemia, unspecified; D50.9 Iron deficiency anemia, unspecified; E66.01 Morbid (severe) obesity due to excess calories; Z83.3 Family history of diabetes mellitus; Z87.11 Personal history of peptic ulcer disease; K21.9 Gastro-esophageal reflux disease without esophagitis; M19.90 Unspecified osteoarthritis, unspecified site; Z68.35 Body mass index [BMI] 35.0-35.9, adult; Z79.899 Other long term (current) drug therapy
CPT/HCPCS: 36415; 71045; 80048; 80061; 81001; 83735; 83880; 84443; 84484; 85025; 93005; 93306; 96374; 99285; J1160; J3490; G0378

== ENCOUNTER 2021-09-17 22:26 | Inpatient (IN) | payer OTHER, BC ==
[~2021-09-17] VITALS: Ht 177.8 cm; Wt 110.2 kg
[~2021-09-17 22:26] MED LIST: ASPI325T11 PO; METO25TA4 PO; NABU750T11 PO
--- NOTE | 2021-09-17 22:56 | PHYS DOC ---
Past Medical History Past Medical History: Anemia Additional Past Medical Histor: ULCER (CARMEN WEST PHOTO EDITOR) Past Surgical History: No Surgical History (CARMEN WEST PHOTO EDITOR) Smoking Status: Never Smoker Alcohol Use: Occasionally Drug Use: None (CARMEN WEST APRN) General Adult EDM: Chief Complaint: ABDOMINAL PAIN HPI: HPI: Patient is a 55 year old male who presents with 2 days of mid abdominal pain that he states is sharp and moving in his mid abdomen. He states that he is bloated. He states that he has had 1 bowel movement today but does not feel like it is enough. He states that he did take some MiraLAX but vomited back up about 15 minutes later. He denies any blood in his vomit or stool. He denies fever, chest pain, shortness of air, headache, dizziness, focal weakness, diarrhea. Patient has a history of gastric ulcer, anemia and A. fib. Patient states he is not currently on any blood thinners or medication for his A. fib as his doctor stated that it went away and he is no longer in A. fib. He does take iron and pantoprazole daily. (CARMEN WEST PHOTO EDITOR) Review of Systems: Review of Systems: Constitutional: Denies fever or chills. [] Eyes: Denies change in visual acuity. [] HENT: Denies nasal congestion or sore throat. [] Respiratory: Denies cough or shortness of breath. [] Cardiovascular: Denies chest pain or edema. [] GI: + abdominal pain, +nausea, +vomiting, denies bloody stools or diarrhea. [] : Denies dysuria. [] Musculoskeletal: Denies back pain or joint pain. [] Integument: Denies rash. [] Neurologic: Denies headache, focal weakness or sensory changes. [] Endocrine: Denies polyuria or polydipsia. [] Lymphatic: Denies swollen glands. [] Psychiatric: Denies depression or anxiety. [] (CARMEN WEST PHOTO EDITOR) Heart Score: C/O Chest Pain: No (CARMEN WEST APRN) C/O Chest Pain: N/A (LUCA BLOCK I DO) Allergies: Allergies: Allergies Coded Allergies Type Severity Reaction Last Updated Verified No Known Drug Allergies 05/29/17 No (CARMEN WEST APRN) Physical Exam: PE: Constitutional: Well developed, well nourished, no acute distress, non-toxic appearance. [] HENT: Normocephalic, atraumatic, bilateral external ears normal, oropharynx moist, no oral exudates, nose normal. [] Eyes: PERRLA, EOMI, conjunctiva normal, no discharge. [] Neck: Normal range of motion, no tenderness, supple, no stridor. [] Cardiovascular:Heart rate regular rhythm, no murmur [] Lungs & Thorax: Bilateral breath sounds clear to auscultation [] Abdomen: Bowel sounds normal, soft, mid abdominal tenderness, no masses, no pulsatile masses. [] Skin: Warm, dry, no erythema, no rash. [] Back: No tenderness, no CVA tenderness. [] Extremities: No tenderness, no cyanosis, no clubbing, ROM intact, no edema. [] Neurologic: Alert and oriented X 3, normal motor function, normal sensory function, no focal deficits noted. [] Psychologic: Affect normal, judgement normal, mood normal. [] (CARMEN WEST APRN) EKG: EK and read by Dr. Block is a sinus rhythm, no STEMI (CARMEN WEST APRN) Radiology/Procedures: Radiology/Procedures: [] Impression: [facility] [address] [place] [address] IMAGING REPORT Signed PATIENT: TIMOTHY CHAVIRACCOUNT: [id number] : 1965 LOCATION: ER AGE: 55 SEX: M EXAM STATUS: REG ER ORD. PHYSICIAN: CARMEN WEST APRN REASON: EPIGASTRIC PAIN, VOMITING PROCEDURE: PORTABLE CHEST 1V Exam: Chest one view INDICATION: Epigastric pain TECHNIQUE: Frontal view of the chest Comparisons: 04/09/2020 FINDINGS: The cardiomediastinal silhouette and pulmonary vessels are within normal limits. The lung and pleural spaces are clear. IMPRESSION: No acute cardiopulmonary process. Electronically signed by: Laurel Thomason MD (09/17/2021 11:05 PM) [facility] DICTATED and SIGNED BY: LAUREL THOMASON MD DATE: 09/17/21 [id number] (CARMEN WEST APRN) Course & Med Decision Making: Course & Med Decision Making Pertinent Labs and Imaging studies reviewed. (See chart for details) See HPI. Alert and oriented x4. Ambulatory with a steady gait. Speaks in full clear sentences. Abdomen is soft but distended. Tender at mid abdomen to epigastric area. Skin pink warm and dry. 0025: Patient signed over to Dr Block. Awaiting CT scan results. [] (CARMEN WEST APRN) Course & Med Decision Making Discussed CT imaging with radiologist. Mechanical SBO- Mass RLQ NG tube placed and confirmed on KUB. Patient kept NPO. Admitted to hospitalist with Gen Surgery consult. Patients Care and treatment plan provided by ER Nurse Practitioner. I examined the patient. (LUCA BLOCK DO) Dragon Disclaimer: Dragon Disclaimer: This electronic medical record was generated, in whole or in part, using a voice recognition dictation system. (CARMEN WEST APRN) Departure Departure Impression: Primary Impression: Small bowel obstruction Disposition: ADMITTED INPATIENT Admitting Physician: MARIIA (LUCA BLOCK DO) Condition: STABLE Referrals: VARINDER MACIAS (PCP) CARMEN WEST APRN Sep 17, 2021 22:56 LUCA BLOCK DO Sep 18, 2021 02:45
[2021-09-17 22:59] LABS: BILIRUBIN,URINE SMALL (NEG); CLARITY,URINE CLEAR; COLOR,URINE AMBER; NITRITE,URINE NEGATIVE (NEG); PROTEIN,URINE 30 mg/dL (NEG-TRACE); UROBILINOGEN,URINE 0.2 mg/dL (0.2 mg/dL)
[2021-09-17] MEDS ORDERED: FAMOTIDINE 20 MG/2 ML VIAL IVP ONE (23:00)
[2021-09-17] MEDS ORDERED: fentaNYL PF VIAL 100 MCG/2 ML VIAL IVP ONE (23:00)
[2021-09-17] MEDS ORDERED: IV NORMAL SALINE 1000ML BAG 1,000 ML IV SCH (23:00)
[2021-09-17 23:05] LABS: BASO % 0 % (0-3); EOS % 0 % (0-3); HEMATOCRIT 43.6 % (39.0-53.0); HEMOGLOBIN 14.5 g/dL (13.0-17.5); LYMPH # 0.6 x10^3/uL (1.0-4.8); LYMPH % 5 % (24-48); MEAN CORPUSCULAR HEMOGLOBIN 27 pg (25-35); MEAN CORPUSCULAR HGB CONC 33 g/dL (31-37); MEAN CORPUSCULAR VOLUME 80 fL (79-100); MONO # 0.8 x10^3/uL (0.0-1.1); MONO % 6 % (0-9); NEUT # 11.8 x10^3/uL (1.8-7.7); NEUT % 89 % (31-73); PLATELET COUNT 208 x10^3/uL (140-400); RED BLOOD COUNT 5.42 x10^6/uL (4.30-5.70); RED CELL DISTRIBUTION WIDTH 17.2 % (11.5-14.5); WHITE BLOOD COUNT 13.2 x10^3/uL (4.0-11.0)
[2021-09-17 23:08] LABS: BACTERIA,URINE 0 /HPF (0-FEW); HYALINE CASTS, URINE OCCASIONAL /HPF; RBC,URINE 0 /HPF (0-2)
--- NOTE | 2021-09-17 23:08 | RAD ---
Exam: Chest one view INDICATION: Epigastric pain TECHNIQUE: Frontal view of the chest Comparisons: 04/09/2020 FINDINGS: The cardiomediastinal silhouette and pulmonary vessels are within normal limits. The lung and pleural spaces are clear. IMPRESSION: No acute cardiopulmonary process. Electronically signed by: Laurel Richards MD (09/17/2021 11:05 PM) [facility]
[2021-09-17 23:16] LABS: CALCIUM 8.2 mg/dL (8.5-10.1); CREATININE 0.8 mg/dL (0.7-1.3); GFR 100.7; POTASSIUM 3.9 mmol/L (3.5-5.1)
[2021-09-17 23:22] LABS: ALBUMIN 3.4 g/dL (3.4-5.0); TOTAL BILIRUBIN 0.9 mg/dL (0.2-1.0); TOTAL PROTEIN 6.8 g/dL (6.4-8.2)
[2021-09-17 23:29] LABS: % LYMPHS 6 % (24-48); % MONOS 6 % (0-10); % SEGS 88 % (35-66); ANISOCYTOSIS SLIGHT; PLT ESTIMATE ADEQUATE (ADEQUATE)
[2021-09-17] MEDS ORDERED: CONTRAST GIVEN. MC PRN (23:30)
[2021-09-17] MEDS ORDERED: IOHEXOL 300 MG/ML 100ML VIAL. IV ONE (23:30)
[2021-09-18] VITALS (12 sets, daily range): BP systolic 119–162; BP diastolic 66–96
--- NOTE | 2021-09-18 00:59 | RAD ---
Exam: CT abdomen/pelvis with intravenous contrast Indication: Epigastric abdominal pain, vomiting Comparison: None Technique: Helical CT imaging performed of the abdomen and pelvis after the intravenous administratio n of 75 mL Omnipaque 300 contrast. Sagittal and coronal reformats were obtained. One or more of the following individualized dose reduction techniques were utilized for this examinat ion: 1. Automated exposure control 2. Adjustment of the mA and/or kV according to patient size 3. Use of iterative reconstruction technique. Findings: Lower chest: Mild atelectasis in the lower lobes. Heart is normal in size. Small hiatal hernia. Liver: The liver is normal in size. No focal lesion. Gallbladder/Biliary Tree: Unremarkable. Pancreas: Normal. Spleen: Normal. Adrenal Glands: Normal. Kidneys/Ureters/Bladder: Kidneys are normal in size. No hydronephrosis. There is a 2.3 cm exophytic c yst in the right kidney with greater than fluid density. Ureters and bladder are normal Reproductive Organs: Normal. Stomach, small bowel, and colon: Stomach is normal. The small bowel is dilated measuring up to 3.9 cm . There is a transition point in the distal small bowel in the right lower quadrant related to a mese nteric mass near the root of mesentery. The mass measures 4.7 x 2.8 cm (image 46, series 2). Distal i leum is decompressed. There is fluid and stool in the colon. There is sigmoid diverticulosis. No pneu matosis. Vasculature: Abdominal aorta is normal in caliber. Lymph Nodes: There are small mesenteric lymph nodes in the right lower quadrant. Peritoneum and retroperitoneum: Right lower quadrant mesenteric mass measuring 4.7 x 2.8 cm, as above . Trace ascites. No free air. Bones: No acute osseous abnormality. Sacroiliac joints are fused. There appear to be bridging syndesm ophytes. There is severe facet arthrosis in the lumbar spine. Impression: 1. Mechanical small bowel obstruction related to a mesenteric mass in the right lower quadrant. The mass measures 4.7 x 2.8 cm. There is trace ascites. 2. Sigmoid diverticulosis. 3. 2.3 cm exophytic right renal cyst with slightly greater than fluid density. Recommend attention o n follow-up. 4. Findings of ankylosing spondylitis. FOR INTERNAL CODING PURPOSES Critical result: Findings discussed with Dr. Block at 09/18/2021 12:56 AM. RESULT CODE: (C) Electronically signed by: Myrna Quezada MD (09/18/2021 12:57 AM) [facility]
[2021-09-18] MEDS ORDERED: MORPHINE SULFATE 4 MG/ML INJ. IVP PRN (02:00)
[2021-09-18] MEDS ORDERED: ONDANSETRON PF 4 MG/2 ML VIAL. IVP PRN ×2 (02:00→19:30)
--- NOTE | 2021-09-18 03:14 | RAD ---
EXAM: XR ABDOMEN 1V 09/18/2021 1:21 AM CLINICAL INDICATION: Small bowel obstruction. NG tube insertion. COMPARISON: CT abdomen pelvis same day TECHNIQUE: AP view of the upper abdomen FINDINGS: There is new nasogastric tube terminating in the gastric fundus. There are dilated loops o f small bowel in the upper abdomen. Lung bases are clear. Heart is normal in size. IMPRESSION: New nasogastric tube in the gastric fundus. Electronically signed by: Myrna Quezada MD (09/18/2021 3:12 AM) [facility]
--- NOTE | 2021-09-18 05:17 | EKG ---
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
--- NOTE | 2021-09-18 09:29 | PDOC2 ---
CONSULT Date of Consult Date of Consult DATE: 09/18/21 TIME: 09:26 Reason for Consult Reason for Consult: Abdominal pain small bowel obstruction Referring Physician Referring Physician: Oswaldo Identification/Chief Complaint Chief Complaint Abdominal pain with nausea vomiting Source Source: Chart review, Patient History of Present Illness Reason for Visit: 55-year-old male with several day history of worsening abdominal pain then developed nausea with some vomiting. Never had an issue like this before has never had surgery on his abdomen came to the emergency department further evaluation CT scan performed at that time shows transition point in the right lower quadrant with associated mesenteric mass causing the obstruction. Past Medical History Cardiovascular: No pertinent hx Pulmonary: No pertinent hx GI: GI bleed, Peptic Ulcer disease Heme/Onc: No pertinent hx Hepatobiliary: No pertinent hx Psych: No pertinent hx Rheumatologic: No pertinent hx Infectious disease: No pertinent hx Renal/: No pertinent hx Endocrine: No pertinent hx Past Surgical History Past Surgical History: No pertinent history Family History Family History: Other Social History ALCOHOL: other Drugs: None Lives: with Family Current Medications Current Medications Current Medications Sodium Chloride 1,000 ml @ 1,000 mls/hr Q1H IV Last administered on 09/17/21at 23:20; Start 09/17/21 at 23:00; Stop 09/17/21 at 23:59; Status DC Fentanyl Citrate (Fentanyl 2ml Vial) 25 mcg 1X ONCE IVP Last administered on 09/17/21at 23:24; Start 09/17/21 at 23:00; Stop 09/17/21 at 23:01; Status DC Famotidine (Pepcid Vial) 20 mg 1X ONCE IVP Last administered on 09/17/21at 23:21; Start 09/17/21 at 23:00; Stop 09/17/21 at 23:01; Status DC Iohexol (Omnipaque 300 Mg/ml) 75 ml 1X ONCE IV Last administered on 09/17/21at 23:31; Start 09/17/21 at 23:30; Stop 09/17/21 at 23:31; Status DC Info (CONTRAST GIVEN -- Rx MONITORING) 1 each PRN DAILY PRN MC SEE COMMENTS; Start 09/17/21 at 23:30; Stop 09/19/21 at 23:29 Ondansetron HCl (Zofran) 4 mg PRN Q8HRS PRN IVP NAUSEA/VOMITING; Start 09/18/21 at 02:00; Stop 09/19/21 at 01:59 Morphine Sulfate (Morphine Sulfate) 4 mg PRN Q2HR PRN IVP PAIN; Start 09/18/21 at 02:00; Stop 09/19/21 at 01:59 Active Scripts Active Aspirin Ec (Aspirin) 325 Mg Tablet. 1 Tab PO DAILY 90 Days Metoprolol Tartrate 25 Mg Tablet 25 Mg PO BID 90 Days Allergies Allergies: Coded Allergies: No Known Drug Allergies (Unverified , 05/29/17) ROS Gastrointestinal: Yes Nausea, Yes Vomiting, Yes Abdominal Pain Physical Exam General: Alert, Oriented X3, Cooperative, mild distress HEENT: Atraumatic, PERRLA, EOMI Lungs: Clear to auscultation, Normal air movement Heart: Regular rate, No murmurs Abdomen: Soft, Other (Mildly tender to palpation right lower quadrant h ypoactive bowel sounds) Extremities: No edema Skin: No significant lesion Neuro: Normal speech Psych/Mental Status: Mental status NL Vitals VITALS Vital Signs Date Time Temp Pulse Resp B/P (MAP) Pulse Ox O2 Delivery O2 Flow Rate FiO2 09/18/21 04:07 99.4 80 18 128/75 (92) 96 Room Air 99.4 Labs Labs Laboratory Tests Test 09/17/21 22:42 09/17/21 22:55 09/18/21 01:45 Urine Collection Type Unknown Urine Color La Urine Clarity Clear Urine pH 6.0 (<5.0-8.0) Urine Specific [place] 1.025 (1.000-1.030) Urine Protein 30 mg/dL (NEG-TRACE) Urine Glucose (UA) Negative mg/dL (NEG) Urine Ketones (Stick) 40 mg/dL (NEG) Urine Blood Negative (NEG) Urine Nitrite Negative (NEG) Urine Bilirubin Small (NEG) Urine Urobilinogen Dipstick 0.2 mg/dL (0.2 mg/dL) Urine Leukocyte Esterase Negative (NEG) Urine RBC 0 /HPF (0-2) Urine WBC 1-4 /HPF (0-4) Urine Squamous Epithelial Cells Few /LPF Urine Bacteria 0 /HPF (0-FEW) Urine Hyaline Casts Occasional /HPF Urine Mucus Marked /LPF White Blood Count 13.2 x10^3/uL (4.0-11.0) Red Blood Count 5.42 x10^6/uL (4.30-5.70) Hemoglobin 14.5 g/dL (13.0-17.5) Hematocrit 43.6 % (39.0-53.0) Mean Corpuscular Volume 80 fL (79-100) Mean Corpuscular Hemoglobin 27 pg (25-35) Mean Corpuscular Hemoglobin Concent 33 g/dL (31-37) Red Cell Distribution Width 17.2 % (11.5-14.5) Platelet Count 208 x10^3/uL (140-400) Neutrophils (%) (Auto) 89 % (31-73) Lymphocytes (%) (Auto) 5 % (24-48) Monocytes (%) (Auto) 6 % (0-9) Eosinophils (%) (Auto) 0 % (0-3) Basophils (%) (Auto) 0 % (0-3) Neutrophils # (Auto) 11.8 x10^3/uL (1.8-7.7) Lymphocytes # (Auto) 0.6 x10^3/uL (1.0-4.8) Monocytes # (Auto) 0.8 x10^3/uL (0.0-1.1) Eosinophils # (Auto) 0.0 x10^3/uL (0.0-0.7) Basophils # (Auto) 0.0 x10^3/uL (0.0-0.2) Segmented Neutrophils % 88 % (35-66) Lymphocytes % 6 % (24-48) Monocytes % 6 % (0-10) Platelet Estimate Adequate (ADEQUATE) Anisocytosis Slight Sodium Level 136 mmol/L (136-145) Potassium Level 3.9 mmol/L (3.5-5.1) Chloride Level 101 mmol/L (98-107) Carbon Dioxide Level 25 mmol/L (21-32) Anion Gap 10 (6-14) Blood Urea Nitrogen 9 mg/dL (8-26) Creatinine 0.8 mg/dL (0.7-1.3) Estimated GFR (Cockcroft-Gault) 100.7 BUN/Creatinine Ratio 11 (6-20) Glucose Level 128 mg/dL (70-99) Calcium Level 8.2 mg/dL (8.5-10.1) Total Bilirubin 0.9 mg/dL (0.2-1.0) Aspartate Amino Transf (AST/SGOT) 22 U/L (15-37) Alanine Aminotransferase (ALT/SGPT) 23 U/L (16-63) Alkaline Phosphatase 107 U/L (46-116) Troponin I High Sensitivity 5 ng/L (4-75) Total Protein 6.8 g/dL (6.4-8.2) Albumin 3.4 g/dL (3.4-5.0) Albumin/Globulin Ratio 1.0 (1.0-1.7) Lipase 50 U/L (73-393) SARS-CoV-2 Antigen (Rapid) Negative (NEGATIVE) Laboratory Tests Test 09/17/21 22:42 09/17/21 22:55 09/18/21 01:45 Urine Collection Type Unknown Urine Color La Urine Clarity Clear Urine pH 6.0 (<5.0-8.0) Urine Specific [place] 1.025 (1.000-1.030) Urine Protein 30 mg/dL (NEG-TRACE) Urine Glucose (UA) Negative mg/dL (NEG) Urine Ketones (Stick) 40 mg/dL (NEG) Urine Blood Negative (NEG) Urine Nitrite Negative (NEG) Urine Bilirubin Small (NEG) Urine Urobilinogen Dipstick 0.2 mg/dL (0.2 mg/dL) Urine Leukocyte Esterase Negative (NEG) Urine RBC 0 /HPF (0-2) Urine WBC 1-4 /HPF (0-4) Urine Squamous Epithelial Cells Few /LPF Urine Bacteria 0 /HPF (0-FEW) Urine Hyaline Casts Occasional /HPF Urine Mucus Marked /LPF White Blood Count 13.2 x10^3/uL (4.0-11.0) Red Blood Count 5.42 x10^6/uL (4.30-5.70) Hemoglobin 14.5 g/dL (13.0-17.5) Hematocrit 43.6 % (39.0-53.0) Mean Corpuscular Volume 80 fL (79-100) Mean Corpuscular Hemoglobin 27 pg (25-35) Mean Corpuscular Hemoglobin Concent 33 g/dL (31-37) Red Cell Distribution Width 17.2 % (11.5-14.5) Platelet Count 208 x10^3/uL (140-400) Neutrophils (%) (Auto) 89 % (31-73) Lymphocytes (%) (Auto) 5 % (24-48) Monocytes (%) (Auto) 6 % (0-9) Eosinophils (%) (Auto) 0 % (0-3) Basophils (%) (Auto) 0 % (0-3) Neutrophils # (Auto) 11.8 x10^3/uL (1.8-7.7) Lymphocytes # (Auto) 0.6 x10^3/uL (1.0-4.8) Monocytes # (Auto) 0.8 x10^3/uL (0.0-1.1) Eosinophils # (Auto) 0.0 x10^3/uL (0.0-0.7) Basophils # (Auto) 0.0 x10^3/uL (0.0-0.2) Segmented Neutrophils % 88 % (35-66) Lymphocytes % 6 % (24-48) Monocytes % 6 % (0-10) Platelet Estimate Adequate (ADEQUATE) Anisocytosis Slight Sodium Level 136 mmol/L (136-145) Potassium Level 3.9 mmol/L (3.5-5.1) Chloride Level 101 mmol/L (98-107) Carbon Dioxide Level 25 mmol/L (21-32) Anion Gap 10 (6-14) Blood Urea Nitrogen 9 mg/dL (8-26) Creatinine 0.8 mg/dL (0.7-1.3) Estimated GFR (Cockcroft-Gault) 100.7 BUN/Creatinine Ratio 11 (6-20) Glucose Level 128 mg/dL (70-99) Calcium Level 8.2 mg/dL (8.5-10.1) Total Bilirubin 0.9 mg/dL (0.2-1.0) Aspartate Amino Transf (AST/SGOT) 22 U/L (15-37) Alanine Aminotransferase (ALT/SGPT) 23 U/L (16-63) Alkaline Phosphatase 107 U/L (46-116) Troponin I High Sensitivity 5 ng/L (4-75) Total Protein 6.8 g/dL (6.4-8.2) Albumin 3.4 g/dL (3.4-5.0) Albumin/Globulin Ratio 1.0 (1.0-1.7) Lipase 50 U/L (73-393) SARS-CoV-2 Antigen (Rapid) Negative (NEGATIVE) Assessment/Plan Assessment/Plan Small bowel obstruction with associated mesenteric mass. Plan for exploratory laparotomy with removal of mass possible small bowel resection. Discussed with patient today plan for surgery SAIDA CARL MD Sep 18, 2021 09:29
[2021-09-18] MEDS ORDERED: MORPHINE SULFATE 2 MG/ML INJ. IVP PRN (10:00)
[2021-09-18] MEDS ORDERED: fentaNYL PF VIAL 100 MCG/2 ML VIAL IVP PRN (10:00)
[2021-09-18] MEDS ORDERED: IV RINGERS,LACTATED 1000ML 1,000 ML IV SCH (10:00)
[2021-09-18] MEDS ORDERED: PROCHLORPERAZINE 10 MG/2 ML VIAL. IVP PRN (10:00)
[2021-09-18] MEDS: IV NORMAL SALINE 1000ML BAG 1,000 ML IV SCH ×2 (10:30→22:48)
--- NOTE | 2021-09-18 10:39 | PDOC ---
GENERAL General: History and physical [id number] VITAL SIGNS Vital Signs/I&O: Vital Signs Date Time Temp Pulse Resp B/P (MAP) Pulse Ox O2 Delivery O2 Flow Rate FiO2 09/18/21 04:07 99.4 80 18 128/75 (92) 96 Room Air 99.4 I & O 09/17/21 09/17/21 09/18/21 15:00 23:00 07:00 Intake Total 1000 ml Balance 1000 ml ALLERGIES Allergies: Allergies Coded Allergies Type Severity Reaction Last Updated Verified No Known Drug Allergies 05/29/17 No MEDS Medications: Current Medications Medications (Trade) Dose Ordered Sig/Mirta Route PRN Reason Start Time Stop Time Status Last Admin Dose Admin Sodium Chloride 1,000 ml @ 1,000 mls/hr Q1H IV 09/17/21 23:00 09/17/21 23:59 DC 09/17/21 23:20 Fentanyl Citrate (Fentanyl 2ml Vial) 25 mcg 1X ONCE IVP 09/17/21 23:00 09/17/21 23:01 DC 09/17/21 23:24 Famotidine (Pepcid Vial) 20 mg 1X ONCE IVP 09/17/21 23:00 09/17/21 23:01 DC 09/17/21 23:21 Iohexol (Omnipaque 300 Mg/ml) 75 ml 1X ONCE IV 09/17/21 23:30 09/17/21 23:31 DC 09/17/21 23:31 LAB Lab: Laboratory Tests Test 09/17/21 22:42 09/17/21 22:55 09/18/21 01:45 Urine Collection Type Unknown Urine Color La Urine Clarity Clear Urine pH 6.0 (<5.0-8.0) Urine Specific [place] 1.025 (1.000-1.030) Urine Protein 30 mg/dL (NEG-TRACE) Urine Glucose (UA) Negative mg/dL (NEG) Urine Ketones (Stick) 40 mg/dL (NEG) Urine Blood Negative (NEG) Urine Nitrite Negative (NEG) Urine Bilirubin Small (NEG) Urine Urobilinogen Dipstick 0.2 mg/dL (0.2 mg/dL) Urine Leukocyte Esterase Negative (NEG) Urine RBC 0 /HPF (0-2) Urine WBC 1-4 /HPF (0-4) Urine Squamous Epithelial Cells Few /LPF Urine Bacteria 0 /HPF (0-FEW) Urine Hyaline Casts Occasional /HPF Urine Mucus Marked /LPF White Blood Count 13.2 x10^3/uL (4.0-11.0) H Red Blood Count 5.42 x10^6/uL (4.30-5.70) Hemoglobin 14.5 g/dL (13.0-17.5) Hematocrit 43.6 % (39.0-53.0) Mean Corpuscular Volume 80 fL (79-100) Mean Corpuscular Hemoglobin 27 pg (25-35) Mean Corpuscular Hemoglobin Concent 33 g/dL (31-37) Red Cell Distribution Width 17.2 % (11.5-14.5) H Platelet Count 208 x10^3/uL (140-400) Neutrophils (%) (Auto) 89 % (31-73) H Lymphocytes (%) (Auto) 5 % (24-48) L Monocytes (%) (Auto) 6 % (0-9) Eosinophils (%) (Auto) 0 % (0-3) Basophils (%) (Auto) 0 % (0-3) Neutrophils # (Auto) 11.8 x10^3/uL (1.8-7.7) H Lymphocytes # (Auto) 0.6 x10^3/uL (1.0-4.8) L Monocytes # (Auto) 0.8 x10^3/uL (0.0-1.1) Eosinophils # (Auto) 0.0 x10^3/uL (0.0-0.7) Basophils # (Auto) 0.0 x10^3/uL (0.0-0.2) Segmented Neutrophils % 88 % (35-66) H Lymphocytes % 6 % (24-48) L Monocytes % 6 % (0-10) Platelet Estimate Adequate (ADEQUATE) Anisocytosis Slight Sodium Level 136 mmol/L (136-145) Potassium Level 3.9 mmol/L (3.5-5.1) Chloride Level 101 mmol/L (98-107) Carbon Dioxide Level 25 mmol/L (21-32) Anion Gap 10 (6-14) Blood Urea Nitrogen 9 mg/dL (8-26) Creatinine 0.8 mg/dL (0.7-1.3) Estimated GFR (Cockcroft-Gault) 100.7 BUN/Creatinine Ratio 11 (6-20) Glucose Level 128 mg/dL (70-99) H Calcium Level 8.2 mg/dL (8.5-10.1) L Total Bilirubin 0.9 mg/dL (0.2-1.0) Aspartate Amino Transferase (AST) 22 U/L (15-37) Alanine Aminotransferase (ALT) 23 U/L (16-63) Alkaline Phosphatase 107 U/L (46-116) Troponin I High Sensitivity 5 ng/L (4-75) Total Protein 6.8 g/dL (6.4-8.2) Albumin 3.4 g/dL (3.4-5.0) Albumin/Globulin Ratio 1.0 (1.0-1.7) Lipase 50 U/L (73-393) L SARS-CoV-2 Antigen (Rapid) Negative (NEGATIVE) Laboratory Tests 09/17/21 22:55 Laboratory Tests 09/17/21 22:55 Justifications for Admission Other Justification EVELYN VITAL MD Sep 18, 2021 10:39
[2021-09-18] MEDS ORDERED: ceFAZolin 2GM PREMIX 2 GM/50 ML BAG IV ONE (11:00)
[2021-09-18] MEDS: PIPERACILLIN/TAZOBACTAM 3.375 GM in IV NORMAL SALINE 50ML 50 ML IV SCH ×3 (12:29→18:00)
--- NOTE | 2021-09-18 13:05 | HP ---
DATE OF SERVICE: 09/18/2021 ADMIT DATE: 09/18/2021 HISTORY OF PRESENT ILLNESS: This patient is a casi 55-year-old man who is a continuity outpatient of Dr. Cantu, who uses the team health hospitalists here at [facility], I am rounding for them this weekend. The patient typically enjoys excellent health. He does tell me that he has had more constipation and intermittent lower abdominal cramping over the last couple of months, but otherwise no issues until 2 days ago when he developed severe right lower quadrant abdominal pain and then inability to evacuate full stool. He has been nauseated and then oral intake dropped off due to ongoing bloating and pain. He presented to the Emergency Department where he has been found to have a right lower quadrant mesenteric mass resulting in bowel obstruction. He has already been seen by Surgery and their assistance is appreciated. Plan is for exploratory laparotomy and resection of that mass today. The patient is in good spirits. We mostly spoke in Rwandan. He does understand quite a bit of Nepalese. He is unaccompanied at bedside. His biggest concern is being sure that his disability paperwork is completed for his work. 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 He denies any other new specific constitutional symptoms and all other systems reviewed and negative. PAST MEDICAL HISTORY: Unremarkable. The patient has never had any abdominal surgery or abdominal issues. MEDICATIONS: Please see the medication reconciliation form. SOCIAL HISTORY: The patient emigrated from [place] 30 years ago. He does not take any tobacco, alcohol or illicit drugs. 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 FAMILY HISTORY: Reviewed in full and noncontributory to the present illness. PHYSICAL EXAMINATION: VITAL SIGNS: Reviewed since admission and are notable for that the patient has a T-max of 99.4, heart rate is in the 80s to 90s. He is breathing comfortably and saturating 96% on room air. Blood pressure has been in the 120s-140s/80. GENERAL: The patient is a well-nourished, well-developed 55-year-old man, in no acute distress. HEENT: Unremarkable for acute abnormality. NECK: Soft and supple. No adenopathy or thyromegaly noted. CHEST: Clear to auscultation. HEART: S1, S2 normal. Regular rate and rhythm. No murmurs or gallops are noted. ABDOMEN: Bowel sounds are present, though diminished. Soft, nontender. No masses or organomegaly noted. EXTREMITIES: Unremarkable for acute abnormality. LABORATORY DATA AND OTHER STUDIES: Admission white count is 13.2 that has not been repeated yet. Hemoglobin is 14.5, platelet count is 208. Chemistry panel is notable for a creatinine of 0.8. Liver function tests are normal. Calcium level is 8.2. Urinalysis is clear. COVID rapid antigen is negative. Chest x-ray is clear. CT abdomen and pelvis is notable for mechanical small-bowel obstruction related to mesenteric mass in the right lower quadrant, mass measures 4.7 x 2.8 cm. There is trace ascites. Sigmoid diverticulosis is noted. A 2.3 cm exophytic right renal cyst is noted as well. There is also note made of findings consistent with ankylosing spondylitis. ASSESSMENT AND PLAN: A 55-year-old man admitted with three days of abdominal pain, nausea, vomiting, and change in bowel habits. He has been found to have a right lower quadrant mass with associated small-bowel obstruction. Plan is for surgical excision today. We will add empiric broad-spectrum antibiotic coverage for abdominal pathogens. We will start low dose Lovenox in the perioperative period. He is also a good candidate for SCDs for DVT prophylaxis. Inpatient status is most appropriate as we anticipate a length of stay of at least 2-3 midnights while we work this through. The patient is a full code. SHARIFA GOMES: Shayna TID: [id number]
[2021-09-18] MEDS ORDERED: ROCURONIUM 50 MG/5 ML VIAL. ONE ×2 (16:10→18:32)
[2021-09-18] MEDS ORDERED: fentaNYL PF VIAL 100 MCG/2 ML VIAL ONE ×3 (16:11→19:50)
[2021-09-18] MEDS ORDERED: HYDROmorphone 2 MG/ML VIAL ONE ×2 (18:27→20:04)
[2021-09-18] MEDS ORDERED: PROPOFOL 10 MG/ML (20ML) VIAL. IV ONE (18:31)
[2021-09-18] MEDS ORDERED: ONDANSETRON PF 4 MG/2 ML VIAL. ONE (18:31)
[2021-09-18] MEDS ORDERED: LIDOCAINE 2% PF 5 ML VIAL. ONE (18:31)
[2021-09-18] MEDS ORDERED: DEXAMETHASONE SOD PHOS 4 MG/ML VIAL ONE (18:31)
[2021-09-18] MEDS ORDERED: BUPIVACAINE-EPI 0.25% 30 ML VIAL KIT. ONE (19:09)
--- NOTE | 2021-09-18 19:26 | PDOC4 ---
Operative Note Operative Note Date: September 182020 at 1920 Preoperative diagnosis: Small bowel obstruction with abdominal mass Postoperative diagnosis: Same Procedure: Exploratory laparotomy with small bowel resection and resection of abdominal mass Surgeon: Alexander Specimen: Small bowel and abdominal mass Dictation: Patient is a 55-year-old gentleman admitted to the hospital with complaints of nausea vomiting and abdominal pain CT scan showed signs consistent with a small bowel obstruction with mid abdomen transition point in association with a mesenteric abdominal mass. The procedure of exploratory laparotomy with resection of mass and possible small bowel resection was explained to the patient detail was benefits were also discussed including bleeding infection alternatives to this procedure also discussed with patient who seemed to understand and gave a verbal and written consent to have the procedure performed. Patient was taken to the operating room placed in the supine position general anesthesia was initiated once patient was sleeping intubated his abdomen was prepped and draped usual sterile fashion using ChloraPrep. A midline incision was made with 10 blade scalpel is carried down through the subcutaneous tissues electrocautery right hemostasis the fascia was then opened with electrocautery and the peritoneum opened with Metzenbaum scissors surgeon's fingers were placed within the abdomen and the fascia was further opened electrocautery gaining access to the abdominal cavity. The small bowel was eviscerated from the abdomen running from the ligament of Treitz proximally mid jejunum the small bowel was tethered to the mesentery with a transition zone within a segment of the small bowel at approximately 20 cm of small bowel involved. The mass appeared soft and lipomatous in nature. The proximal small bowel was stapled and transected an area of normal bowel going into this area and then the distal small bowel was stapled and transected in a normal area coming out of the tethered bowel to the mesentery. The mesenteric mass and small bowel were excised using the impact LigaSure down to the vessels which were doubly clamped with Kwon clamp and sewed with 2-0 Vicryl suture. The mass and small bowel were sent for pathology the distal and proximal small bowel were then anastomosed in a [id number] fashion with stapled anastomosis the enterotomy was then closed with a running 2 oh interlocking Vicryl. Vicryl Lembert's were then used to oversew the suture line. The mesenteric defect was closed with a running 2-0 Vicryl. The distal small bowel was run from the anastomosis to the cecum rest of which appeared to be normal the liver was palpated which appeared to be normal no other abnormal findings within the abdomen. Abdomen was irrigated with copious amounts normal saline and suctioned dry bowel was returned to the abdomen and the fascia was closed with a running oh looped PDS. Quarter percent Marcaine with epinephrine was used to inject the fascia and the deep subcutaneous layer was closed with a 3-0 Vicryl. Skin was reapproximated for subcu to the Monocryl Mastisol Steri-Strips and island jonnathan ssings were applied. Patient was awakened and extubated in the operating room taken to recovery in stable condition all sponge instrument needle counts listed as correct estimated blood loss 150 mL SAIDA CARL MD Sep 18, 2021 19:26
[2021-09-18] MEDS ORDERED: PROCHLORPERAZINE 10 MG/2 ML VIAL. ONE (19:50)
[2021-09-18] MEDS: fentaNYL PF VIAL 100 MCG/2 ML VIAL IVP PRN ×2 (19:54→20:03)
[2021-09-18] MEDS: HYDROmorphone 2 MG/ML VIAL IVP PRN ×2 (20:06→20:19)
[2021-09-18] MEDS: KETOROLAC 15 MG/ML VIAL. IVP SCH (22:47)
[2021-09-18] MEDS: MORPHINE SULFATE 4 MG/ML INJ. IV PRN (22:53)
[2021-09-19] MEDS: PIPERACILLIN/TAZOBACTAM 3.375 GM in IV NORMAL SALINE 50ML 50 ML IV SCH ×5 (00:08→23:14)
[2021-09-19] MEDS: MORPHINE SULFATE 4 MG/ML INJ. IV PRN ×8 (00:29→22:49)
[2021-09-19 02:47] VITALS: BP 176/101
[2021-09-19] MEDS: KETOROLAC 15 MG/ML VIAL. IVP SCH ×4 (06:09→23:30)
[2021-09-19 07:00] VITALS: BP 128/72
[2021-09-19] MEDS: IV NORMAL SALINE 1000ML BAG 1,000 ML IV SCH (07:57)
[2021-09-19 08:28] LABS: BASO % 0 % (0-3); EOS % 0 % (0-3); HEMATOCRIT 38.5 % (39.0-53.0); LYMPH # 0.5 x10^3/uL (1.0-4.8); LYMPH % 2 % (24-48); MEAN CORPUSCULAR HEMOGLOBIN 26 pg (25-35); MEAN CORPUSCULAR HGB CONC 31 g/dL (31-37); MEAN CORPUSCULAR VOLUME 82 fL (79-100); MONO # 2.6 x10^3/uL (0.0-1.1); MONO % 11 % (0-9); NEUT # 20.6 x10^3/uL (1.8-7.7); NEUT % 87 % (31-73); PLATELET COUNT 168 x10^3/uL (140-400); RED BLOOD COUNT 4.68 x10^6/uL (4.30-5.70); RED CELL DISTRIBUTION WIDTH 18.3 % (11.5-14.5); WHITE BLOOD COUNT 23.7 x10^3/uL (4.0-11.0)
[2021-09-19 08:34] LABS: ALBUMIN 2.7 g/dL (3.4-5.0); ALBUMIN/GLOBULIN RATIO 0.9 (1.0-1.7); CALCIUM 7.6 mg/dL (8.5-10.1); CREATININE 0.7 mg/dL (0.7-1.3); GFR 117.5; POTASSIUM 3.9 mmol/L (3.5-5.1); TOTAL BILIRUBIN 0.7 mg/dL (0.2-1.0); TOTAL PROTEIN 5.8 g/dL (6.4-8.2)
--- NOTE | 2021-09-19 08:43 | PDOC ---
SURGICAL PROGRESS NOTE DATE: 09/19/21 TIME: 08:42 Subjective Doing well patient does describe some abdominal soreness no nausea no flatus Vital Signs Vital Signs Date Time Temp Pulse Resp B/P (MAP) Pulse Ox O2 Delivery O2 Flow Rate FiO2 09/19/21 07:56 20 94 2.0 09/19/21 07:00 102.5 110 128/72 (90) Nasal Cannula 102.5 I&O Intake and Output 09/19/21 07:00 Intake Total 580 ml Output Total 1400 ml Balance -820 ml IV Total 580 ml Output Urine Total 950 ml Gastric Drainage Total 300 ml Estimated Blood Loss 150 ml # Voids 3 PATIENT HAS A RAMEY: Yes General: Alert, Oriented X3, Cooperative, mild distress Abdomen: Soft, Other (Mild incisional tenderness wounds clean dry and intact NG tube with bilious output minimal) Labs Laboratory Tests Test 09/17/21 22:42 09/17/21 22:55 09/18/21 01:45 09/19/21 06:30 Urine Collection Type Unknown Urine Color La Urine Clarity Clear Urine pH 6.0 (<5.0-8.0) Urine Specific [place] 1.025 (1.000-1.030) Urine Protein 30 mg/dL (NEG-TRACE) Urine Glucose (UA) Negative mg/dL (NEG) Urine Ketones (Stick) 40 mg/dL (NEG) Urine Blood Negative (NEG) Urine Nitrite Negative (NEG) Urine Bilirubin Small (NEG) Urine Urobilinogen Dipstick 0.2 mg/dL (0.2 mg/dL) Urine Leukocyte Esterase Negative (NEG) Urine RBC 0 /HPF (0-2) Urine WBC 1-4 /HPF (0-4) Urine Squamous Epithelial Cells Few /LPF Urine Bacteria 0 /HPF (0-FEW) Urine Hyaline Casts Occasional /HPF Urine Mucus Marked /LPF White Blood Count 13.2 x10^3/uL (4.0-11.0) Red Blood Count 5.42 x10^6/uL (4.30-5.70) Hemoglobin 14.5 g/dL (13.0-17.5) Hematocrit 43.6 % (39.0-53.0) Mean Corpuscular Volume 80 fL (79-100) Mean Corpuscular Hemoglobin 27 pg (25-35) Mean Corpuscular Hemoglobin Concent 33 g/dL (31-37) Red Cell Distribution Width 17.2 % (11.5-14.5) Platelet Count 208 x10^3/uL (140-400) Neutrophils (%) (Auto) 89 % (31-73) Lymphocytes (%) (Auto) 5 % (24-48) Monocytes (%) (Auto) 6 % (0-9) Eosinophils (%) (Auto) 0 % (0-3) Basophils (%) (Auto) 0 % (0-3) Neutrophils # (Auto) 11.8 x10^3/uL (1.8-7.7) Lymphocytes # (Auto) 0.6 x10^3/uL (1.0-4.8) Monocytes # (Auto) 0.8 x10^3/uL (0.0-1.1) Eosinophils # (Auto) 0.0 x10^3/uL (0.0-0.7) Basophils # (Auto) 0.0 x10^3/uL (0.0-0.2) Segmented Neutrophils % 88 % (35-66) Lymphocytes % 6 % (24-48) Monocytes % 6 % (0-10) Platelet Estimate Adequate (ADEQUATE) Anisocytosis Slight Sodium Level 136 mmol/L (136-145) 144 mmol/L (136-145) Potassium Level 3.9 mmol/L (3.5-5.1) 3.9 mmol/L (3.5-5.1) Chloride Level 101 mmol/L (98-107) 107 mmol/L (98-107) Carbon Dioxide Level 25 mmol/L (21-32) 25 mmol/L (21-32) Anion Gap 10 (6-14) 12 (6-14) Blood Urea Nitrogen 9 mg/dL (8-26) 8 mg/dL (8-26) Creatinine 0.8 mg/dL (0.7-1.3) 0.7 mg/dL (0.7-1.3) Estimated GFR (Cockcroft-Gault) 100.7 117.5 BUN/Creatinine Ratio 11 (6-20) 11 (6-20) Glucose Level 128 mg/dL (70-99) 122 mg/dL (70-99) Calcium Level 8.2 mg/dL (8.5-10.1) 7.6 mg/dL (8.5-10.1) Total Bilirubin 0.9 mg/dL (0.2-1.0) 0.7 mg/dL (0.2-1.0) Aspartate Amino Transf (AST/SGOT) 22 U/L (15-37) 17 U/L (15-37) Alanine Aminotransferase (ALT/SGPT) 23 U/L (16-63) 20 U/L (16-63) Alkaline Phosphatase 107 U/L (46-116) 77 U/L (46-116) Troponin I High Sensitivity 5 ng/L (4-75) Total Protein 6.8 g/dL (6.4-8.2) 5.8 g/dL (6.4-8.2) Albumin 3.4 g/dL (3.4-5.0) 2.7 g/dL (3.4-5.0) Albumin/Globulin Ratio 1.0 (1.0-1.7) 0.9 (1.0-1.7) Lipase 50 U/L (73-393) SARS-CoV-2 RNA (LUIS) Negative (Negative) SARS-CoV-2 Antigen (Rapid) Negative (NEGATIVE) Laboratory Tests Test 09/19/21 06:30 Sodium Level 144 mmol/L (136-145) Potassium Level 3.9 mmol/L (3.5-5.1) Chloride Level 107 mmol/L (98-107) Carbon Dioxide Level 25 mmol/L (21-32) Anion Gap 12 (6-14) Blood Urea Nitrogen 8 mg/dL (8-26) Creatinine 0.7 mg/dL (0.7-1.3) Estimated GFR (Cockcroft-Gault) 117.5 BUN/Creatinine Ratio 11 (6-20) Glucose Level 122 mg/dL (70-99) Calcium Level 7.6 mg/dL (8.5-10.1) Total Bilirubin 0.7 mg/dL (0.2-1.0) Aspartate Amino Transf (AST/SGOT) 17 U/L (15-37) Alanine Aminotransferase (ALT/SGPT) 20 U/L (16-63) Alkaline Phosphatase 77 U/L (46-116) Total Protein 5.8 g/dL (6.4-8.2) Albumin 2.7 g/dL (3.4-5.0) Albumin/Globulin Ratio 0.9 (1.0-1.7) Assessment/Plan Status post resection of abdominal mass with small bowel. Awaiting return of bowel function continue supportive care Justicifation of Admission Dx: Justifications for Admission: Justification of Admission Dx: Yes CHF: Cardiac Arrhythmias SAIDA CARL MD Sep 19, 2021 08:43
--- NOTE | 2021-09-19 10:46 | NUR ---
SW following. Discussed with RN, pt from home, 2L (likely from the pain meds per RN. Pt does not use at home), NPO. COVID-19 negative. Pt had surgery 09/18. NG tube in place. RN advised no SW needs at this time. SW will continue to follow.
[2021-09-19 10:54] VITALS: BP 127/75
--- NOTE | 2021-09-19 11:30 | PDOC ---
[facility] [facility] PROGRESS NOTE Date of Service DOS: DATE: 09/19/21 TIME: 11:23 Chief Complaint Chief Complaint Small bowel obstruction RLQ mass Nausea and vomiting Leukocytosis History of Present Illness History of Present Illness 09/19/2021 Patient seen and examined Chart reviewed Discussed with RN Post-op day 1 exploratory laparotomy with tumor resection. NG suction Yee to BSD IV Zosyn hanging Pathology was called during our visit to discuss the resected mass. Pathology concerned for possible neuroendocrine tumor. Path is sending the specimen off for section and further evaluation. Vitals/I&O Vitals/I&O: Vital Signs Date Time Temp Pulse Resp B/P (MAP) Pulse Ox O2 Delivery O2 Flow Rate FiO2 09/19/21 10:54 98.9 103 18 127/75 (92) 95 Nasal Cannula 2.0 98.9 I & O 09/18/21 09/18/21 09/19/21 15:00 23:00 07:00 Intake Total 580 ml Output Total 250 ml 1150 ml Balance 330 ml -1150 ml Physical Exam General: Alert, Oriented X3, Cooperative, mild distress Heart: Regular rate, No murmurs Lungs: Clear Abdomen: Soft, Other (Mild incisional tenderness wounds clean dry and intact NG tube with bilious output minimal) Extremities: No edema Skin: No significant lesion Labs Labs: Laboratory Tests Test 09/19/21 06:30 White Blood Count 23.7 x10^3/uL (4.0-11.0) Red Blood Count 4.68 x10^6/uL (4.30-5.70) Hemoglobin 12.0 g/dL (13.0-17.5) Hematocrit 38.5 % (39.0-53.0) Mean Corpuscular Volume 82 fL (79-100) Mean Corpuscular Hemoglobin 26 pg (25-35) Mean Corpuscular Hemoglobin Concent 31 g/dL (31-37) Red Cell Distribution Width 18.3 % (11.5-14.5) Platelet Count 168 x10^3/uL (140-400) Neutrophils (%) (Auto) 87 % (31-73) Lymphocytes (%) (Auto) 2 % (24-48) Monocytes (%) (Auto) 11 % (0-9) Eosinophils (%) (Auto) 0 % (0-3) Basophils (%) (Auto) 0 % (0-3) Neutrophils # (Auto) 20.6 x10^3/uL (1.8-7.7) Lymphocytes # (Auto) 0.5 x10^3/uL (1.0-4.8) Monocytes # (Auto) 2.6 x10^3/uL (0.0-1.1) Eosinophils # (Auto) 0.0 x10^3/uL (0.0-0.7) Basophils # (Auto) 0.0 x10^3/uL (0.0-0.2) Sodium Level 144 mmol/L (136-145) Potassium Level 3.9 mmol/L (3.5-5.1) Chloride Level 107 mmol/L (98-107) Carbon Dioxide Level 25 mmol/L (21-32) Anion Gap 12 (6-14) Blood Urea Nitrogen 8 mg/dL (8-26) Creatinine 0.7 mg/dL (0.7-1.3) Estimated GFR (Cockcroft-Gault) 117.5 BUN/Creatinine Ratio 11 (6-20) Glucose Level 122 mg/dL (70-99) Calcium Level 7.6 mg/dL (8.5-10.1) Total Bilirubin 0.7 mg/dL (0.2-1.0) Aspartate Amino Transf (AST/SGOT) 17 U/L (15-37) Alanine Aminotransferase (ALT/SGPT) 20 U/L (16-63) Alkaline Phosphatase 77 U/L (46-116) Total Protein 5.8 g/dL (6.4-8.2) Albumin 2.7 g/dL (3.4-5.0) Albumin/Globulin Ratio 0.9 (1.0-1.7) Assessment and Plan Assessmemt and Plan Postop day 1 partial bowelresection Small bowel obstruction Pathology concerned for possible neuroendocrine tumor. Right lower quadrant mass Nausea and vomiting Leukocytosis Plan: Consult Oncology Continue NG suction NPO Order Clinimix Continue IV Zosyn Appreciate subspecialist input DVT prophylaxis Home meds Comment Review of Relevant I have reviewed the following items anna marie (where applicable) has been applied. Medications: Current Medications Medications (Trade) Dose Ordered Sig/Mirta Route PRN Reason Start Time Stop Time Status Last Admin Dose Admin Piperacillin Sod/ Tazobactam Sod 3.375 gm/Sodium Chloride 50 ml @ 100 mls/hr Q6HRS IV 09/18/21 12:00 09/19/21 05:26 Bupivacaine HCl/ Epinephrine Bitart (Sensorcain-Epi 0.25% Kit) 30 ml STK-MED ONCE .ROUTE 09/18/21 19:09 09/18/21 19:09 DC 09/18/21 19:14 Ketorolac Tromethamine (Toradol 15mg Vial) 15 mg Q6HRS IVP 09/19/21 00:00 09/20/21 23:59 09/19/21 06:09 Ondansetron HCl (Zofran) 4 mg PRN Q6HRS PRN IVP NAUSEA/VOMITING 09/18/21 19:30 09/19/21 07:56 Morphine Sulfate (Morphine Sulfate) 4 mg PRN Q2HR PRN IV PAIN 09/18/21 22:45 09/19/21 10:15 Justifications for Admission Other Justification DIANA ALARCON III DO Sep 19, 2021 11:30
[2021-09-19] MEDS: AA 4.25 %/CALCIUM/LYTES/D5W 1,000 ML IV SCH (11:48)
[2021-09-19 15:00] VITALS: BP 111/63
[2021-09-19 19:57] VITALS: BP 123/68
[2021-09-19 23:24] VITALS: BP 121/67
[2021-09-20] MEDS: AA 4.25 %/CALCIUM/LYTES/D5W 1,000 ML IV SCH ×2 (01:35→14:08)
[2021-09-20 03:58] VITALS: BP 105/63
[2021-09-20] MEDS: PIPERACILLIN/TAZOBACTAM 3.375 GM in IV NORMAL SALINE 50ML 50 ML IV SCH ×3 (05:46→18:18)
[2021-09-20] MEDS: KETOROLAC 30 MG/ML VIAL. IVP SCH ×3 (06:43→18:18)
[2021-09-20 07:00] VITALS: BP 130/70
[2021-09-20] MEDS: MORPHINE SULFATE 4 MG/ML INJ. IV PRN ×2 (09:29→20:48)
[2021-09-20 11:00] VITALS: BP_DIAS 70
--- NOTE | 2021-09-20 11:47 | PDOC ---
[facility] PROGRESS NOTE Date of Service DOS: DATE: 09/20/21 TIME: 11:46 Chief Complaint Chief Complaint Postop day 2 partial bowel resection Small bowel obstruction Pathology concerned for possible neuroendocrine tumor. Right lower quadrant mass Nausea and vomiting Leukocytosis History of Present Illness History of Present Illness 09/20/2021 Patient seen and examined Chart reviewed Discussed with RN Post-op day 2 exploratory laparotomy with tumor resection. Patient still on NG suction Yee to BSD in place IV Zosyn hanging Clinimix hanging. Discussed patient condition with Charles ramirez and Nehemias. Vitals/I&O Vitals/I&O: Vital Signs Date Time Temp Pulse Resp B/P (MAP) Pulse Ox O2 Delivery O2 Flow Rate FiO2 09/20/21 07:00 98.3 92 18 130/70 (90) 92 98.3 09/20/21 03:58 Room Air 09/19/21 15:57 2.0 I & O 09/19/21 09/19/21 09/20/21 15:00 23:00 07:00 Intake Total 0 ml Output Total 1200 ml 800 ml Balance -1200 ml -800 ml Physical Exam General: Alert, Oriented X3, Cooperative, mild distress Heart: Regular rate, No murmurs Lungs: Clear Abdomen: Soft, Other (Mild incisional tenderness wounds clean dry and intact NG tube with bilious output minimal) Extremities: No edema Skin: No significant lesion Assessment and Plan Assessmemt and Plan Postop day 2 partial bowel resection Small bowel obstruction Pathology concerned for possible neuroendocrine tumor. Right lower quadrant mass Nausea and vomiting Leukocytosis Plan: Await final pathology report Continue NG suction NPO Continue Clinimix Continue IV Zosyn Appreciate subspecialist input Trend labs DVT prophylaxis Home meds Comment Review of Relevant I have reviewed the following items anna marie (where applicable) has been applied. Medications: Current Medications Medications (Trade) Dose Ordered Sig/Mirta Route PRN Reason Start Time Stop Time Status Last Admin Dose Admin Ketorolac Tromethamine (Toradol 30mg Vial) 15 mg Q6HRS IVP 09/20/21 06:00 09/20/21 23:59 09/20/21 06:43 Justifications for Admission Other Justification DIANA ALARCON III DO Sep 20, 2021 11:47
--- NOTE | 2021-09-20 12:54 | PDOC ---
MARY LOU WOMACK TOOLING MANAGER 09/20/21 1254: SURGICAL PROGRESS NOTE DATE: 09/20/21 TIME: 12:51 Subjective resting pain is improving some flatus Vital Signs Vital Signs Date Time Temp Pulse Resp B/P (MAP) Pulse Ox O2 Delivery O2 Flow Rate FiO2 09/20/21 07:00 98.3 92 18 130/70 (90) 92 98.3 09/20/21 03:58 Room Air 09/19/21 15:57 2.0 I&O Intake and Output 09/20/21 07:00 Intake Total 0 ml Output Total 2000 ml Balance -2000 ml Intake Oral 0 ml Output Urine Total 900 ml Gastric Drainage Total 1100 ml General: Alert, Cooperative Abdomen: Soft, Other (dressing dry) Labs Laboratory Tests Test 09/19/21 06:30 White Blood Count 23.7 x10^3/uL (4.0-11.0) Red Blood Count 4.68 x10^6/uL (4.30-5.70) Hemoglobin 12.0 g/dL (13.0-17.5) Hematocrit 38.5 % (39.0-53.0) Mean Corpuscular Volume 82 fL (79-100) Mean Corpuscular Hemoglobin 26 pg (25-35) Mean Corpuscular Hemoglobin Concent 31 g/dL (31-37) Red Cell Distribution Width 18.3 % (11.5-14.5) Platelet Count 168 x10^3/uL (140-400) Neutrophils (%) (Auto) 87 % (31-73) Lymphocytes (%) (Auto) 2 % (24-48) Monocytes (%) (Auto) 11 % (0-9) Eosinophils (%) (Auto) 0 % (0-3) Basophils (%) (Auto) 0 % (0-3) Neutrophils # (Auto) 20.6 x10^3/uL (1.8-7.7) Lymphocytes # (Auto) 0.5 x10^3/uL (1.0-4.8) Monocytes # (Auto) 2.6 x10^3/uL (0.0-1.1) Eosinophils # (Auto) 0.0 x10^3/uL (0.0-0.7) Basophils # (Auto) 0.0 x10^3/uL (0.0-0.2) Sodium Level 144 mmol/L (136-145) Potassium Level 3.9 mmol/L (3.5-5.1) Chloride Level 107 mmol/L (98-107) Carbon Dioxide Level 25 mmol/L (21-32) Anion Gap 12 (6-14) Blood Urea Nitrogen 8 mg/dL (8-26) Creatinine 0.7 mg/dL (0.7-1.3) Estimated GFR (Cockcroft-Gault) 117.5 BUN/Creatinine Ratio 11 (6-20) Glucose Level 122 mg/dL (70-99) Calcium Level 7.6 mg/dL (8.5-10.1) Total Bilirubin 0.7 mg/dL (0.2-1.0) Aspartate Amino Transf (AST/SGOT) 17 U/L (15-37) Alanine Aminotransferase (ALT/SGPT) 20 U/L (16-63) Alkaline Phosphatase 77 U/L (46-116) Total Protein 5.8 g/dL (6.4-8.2) Albumin 2.7 g/dL (3.4-5.0) Albumin/Globulin Ratio 0.9 (1.0-1.7) Assessment/Plan clamp ng, ambulate, dc daniella Justicifation of Admission Dx: Justifications for Admission: Justification of Admission Dx: Yes CHF: Cardiac Arrhythmias SAIDA CARL MD 09/21/21 0826: SURGICAL PROGRESS NOTE Assessment/Plan Agree with Mei assessment plan MARY LOU WOMACK TOOLING MANAGER Sep 20, 2021 12:54 SAIDA CARL MD Sep 21, 2021 08:26
[2021-09-20 15:00] VITALS: BP 115/66
[2021-09-20 19:00] VITALS: BP 127/72
[2021-09-20] MEDS: ENOXAPARIN 40 MG/0.4 ML SYRINGE. SQ SCH (20:48)
[2021-09-20 23:00] VITALS: BP 120/68
[2021-09-21] MEDS: PIPERACILLIN/TAZOBACTAM 3.375 GM in IV NORMAL SALINE 50ML 50 ML IV SCH ×5 (02:21→23:05)
[2021-09-21] MEDS: AA 4.25 %/CALCIUM/LYTES/D5W 1,000 ML IV SCH (02:21)
[2021-09-21] MEDS: MORPHINE SULFATE 4 MG/ML INJ. IV PRN ×6 (02:35→23:05)
[2021-09-21 03:00] VITALS: BP 129/69
[2021-09-21 06:28] LABS: HEMATOCRIT 34.7 % (39.0-53.0); HEMOGLOBIN 10.9 g/dL (13.0-17.5); RED BLOOD COUNT 4.2 x10^6/uL (4.30-5.70); RED CELL DISTRIBUTION WIDTH 18.8 % (11.5-14.5); WHITE BLOOD COUNT 18.9 x10^3/uL (4.0-11.0)
[2021-09-21 06:40] LABS: CALCIUM 7.7 mg/dL (8.5-10.1); CREATININE 0.7 mg/dL (0.7-1.3); GFR 117.5; POTASSIUM 3.8 mmol/L (3.5-5.1)
[2021-09-21 07:00] VITALS: BP 134/73
--- NOTE | 2021-09-21 08:09 | PDOC ---
[facility] PROGRESS NOTE Date of Service DOS: DATE: 09/21/21 TIME: 08:07 Chief Complaint Chief Complaint Postop day 3 partial bowel resection Small bowel obstruction Pathology concerned for possible neuroendocrine tumor. Right lower quadrant mass Nausea and vomiting Leukocytosis History of Present Illness History of Present Illness 09/21/2021 Patient seen and examined Chart reviewed Discussed with RN Post-op day 3 exploratory laparotomy with tumor resection. NG has been clamped per GI Yee removed. Patient reports having a bowel movement yesterday. He is feeling good today. Vitals/I&O Vitals/I&O: Vital Signs Date Time Temp Pulse Resp B/P (MAP) Pulse Ox O2 Delivery O2 Flow Rate FiO2 09/21/21 07:14 94 Room Air 09/21/21 05:00 101.0 101.0 09/21/21 03:00 103 20 129/69 (89) 09/20/21 08:00 2.0 I & O 09/20/21 09/20/21 09/21/21 15:00 23:00 07:00 Intake Total 200 ml 200 ml Balance 200 ml 200 ml Physical Exam General: Alert, Cooperative Heart: Regular rate, No murmurs Lungs: Clear Abdomen: Soft, Other (dressing dry) Extremities: No edema Skin: No significant lesion Labs Labs: Laboratory Tests Test 09/21/21 04:10 White Blood Count 18.9 x10^3/uL (4.0-11.0) Red Blood Count 4.20 x10^6/uL (4.30-5.70) Hemoglobin 10.9 g/dL (13.0-17.5) Hematocrit 34.7 % (39.0-53.0) Mean Corpuscular Volume 83 fL (79-100) Mean Corpuscular Hemoglobin 26 pg (25-35) Mean Corpuscular Hemoglobin Concent 32 g/dL (31-37) Red Cell Distribution Width 18.8 % (11.5-14.5) Platelet Count 168 x10^3/uL (140-400) Sodium Level 141 mmol/L (136-145) Potassium Level 3.8 mmol/L (3.5-5.1) Chloride Level 107 mmol/L (98-107) Carbon Dioxide Level 25 mmol/L (21-32) Anion Gap 9 (6-14) Blood Urea Nitrogen 12 mg/dL (8-26) Creatinine 0.7 mg/dL (0.7-1.3) Estimated GFR (Cockcroft-Gault) 117.5 Glucose Level 89 mg/dL (70-99) Calcium Level 7.7 mg/dL (8.5-10.1) Assessment and Plan Assessmemt and Plan Postop day 3 partial bowel resection Small bowel obstruction Pathology concerned for possible neuroendocrine tumor. Right lower quadrant mass Nausea and vomiting Leukocytosis Plan: Await final pathology report NPO Continue Clinimix Continue IV Zosyn Appreciate subspecialist input Trend labs DVT prophylaxis Home meds Comment Review of Relevant I have reviewed the following items anna marie (where applicable) has been applied. Medications: Current Medications Medications (Trade) Dose Ordered Sig/Mirta Route PRN Reason Start Time Stop Time Status Last Admin Dose Admin Enoxaparin Sodium (Lovenox 40mg Syringe) 40 mg Q24H SQ 09/20/21 21:00 09/20/21 20:48 Justifications for Admission Other Justification DIANA ALARCON III DO Sep 21, 2021 08:09
[2021-09-21 11:00] VITALS: BP 124/75
--- NOTE | 2021-09-21 11:19 | PDOC ---
SURGICAL PROGRESS NOTE DATE: 09/21/21 TIME: 11:18 Subjective pain with coughing had 3 stools Vital Signs Vital Signs Date Time Temp Pulse Resp B/P (MAP) Pulse Ox O2 Delivery O2 Flow Rate FiO2 09/21/21 07:14 94 Room Air 09/21/21 07:00 98.2 97 20 134/73 (93) 98.2 09/20/21 08:00 2.0 I&O Intake and Output 09/21/21 07:00 Intake Total 400 ml Balance 400 ml Intake Oral 400 ml # Voids 2 General: Alert, Oriented X3, Cooperative Abdomen: Soft, Other (ND, incision c/d/i) Labs Laboratory Tests Test 09/21/21 04:10 White Blood Count 18.9 x10^3/uL (4.0-11.0) Red Blood Count 4.20 x10^6/uL (4.30-5.70) Hemoglobin 10.9 g/dL (13.0-17.5) Hematocrit 34.7 % (39.0-53.0) Mean Corpuscular Volume 83 fL (79-100) Mean Corpuscular Hemoglobin 26 pg (25-35) Mean Corpuscular Hemoglobin Concent 32 g/dL (31-37) Red Cell Distribution Width 18.8 % (11.5-14.5) Platelet Count 168 x10^3/uL (140-400) Sodium Level 141 mmol/L (136-145) Potassium Level 3.8 mmol/L (3.5-5.1) Chloride Level 107 mmol/L (98-107) Carbon Dioxide Level 25 mmol/L (21-32) Anion Gap 9 (6-14) Blood Urea Nitrogen 12 mg/dL (8-26) Creatinine 0.7 mg/dL (0.7-1.3) Estimated GFR (Cockcroft-Gault) 117.5 Glucose Level 89 mg/dL (70-99) Calcium Level 7.7 mg/dL (8.5-10.1) Laboratory Tests Test 09/21/21 04:10 White Blood Count 18.9 x10^3/uL (4.0-11.0) Red Blood Count 4.20 x10^6/uL (4.30-5.70) Hemoglobin 10.9 g/dL (13.0-17.5) Hematocrit 34.7 % (39.0-53.0) Mean Corpuscular Volume 83 fL (79-100) Mean Corpuscular Hemoglobin 26 pg (25-35) Mean Corpuscular Hemoglobin Concent 32 g/dL (31-37) Red Cell Distribution Width 18.8 % (11.5-14.5) Platelet Count 168 x10^3/uL (140-400) Sodium Level 141 mmol/L (136-145) Potassium Level 3.8 mmol/L (3.5-5.1) Chloride Level 107 mmol/L (98-107) Carbon Dioxide Level 25 mmol/L (21-32) Anion Gap 9 (6-14) Blood Urea Nitrogen 12 mg/dL (8-26) Creatinine 0.7 mg/dL (0.7-1.3) Estimated GFR (Cockcroft-Gault) 117.5 Glucose Level 89 mg/dL (70-99) Calcium Level 7.7 mg/dL (8.5-10.1) Assessment/Plan fevers, wbc improving will check cxr, us, add IS if fevers persist ct tomorrow Justicifation of Admission Dx: Justifications for Admission: Justification of Admission Dx: Yes CHF: Cardiac Arrhythmias MARY LOU WOMACK [employer]TE[employer] SUPERVISOR Sep 21, 2021 11:19
--- NOTE | 2021-09-21 12:24 | RAD ---
Single view of the chest. 09/21/2021 11:51 AM Indication: Reason: fevers postop / Spl. Instructions: / History: Comparison: Chest radiograph September 17, 2021 Findings: Lung volumes mildly low with minimal basilar atelectasis. No pneumothorax. No pleural effus ion is identified. Heart size is normal. No acute osseous changes are seen. Mild gaseous distention o f small bowel bowel the upper abdomen noted. IMPRESSION: 1. Mildly low lung volumes with probable basilar atelectasis 2. Mild gaseous distention of small bowel in the upper abdomen Electronically signed by: David Stevenson MD (09/21/2021 12:22 PM) [id number]
[2021-09-21] MEDS: IV NORMAL SALINE 1000ML BAG 1,000 ML IV SCH (13:00)
--- NOTE | 2021-09-21 14:50 | NUR ---
SW following. Discussed with RN, ARMAND clamped. Pt still NPO. COVID-19 negative. Pt not ready for discharge. Plan is home when medically stable. SW will continue to follow.
[2021-09-21 15:00] VITALS: BP 132/73
[2021-09-21 15:51] LABS: BILIRUBIN,URINE NEGATIVE (NEG); CLARITY,URINE CLEAR; COLOR,URINE AMBER; NITRITE,URINE NEGATIVE (NEG); PROTEIN,URINE 30 mg/dL (NEG-TRACE); UROBILINOGEN,URINE 0.2 mg/dL (0.2 mg/dL)
[2021-09-21 16:23] LABS: BACTERIA,URINE 0 /HPF (0-FEW)
[2021-09-21 19:00] VITALS: BP 128/65
[2021-09-21] MEDS: ACETAMINOPHEN 500 MG TABLET PO PRN (21:48)
[2021-09-21] MEDS: ENOXAPARIN 40 MG/0.4 ML SYRINGE. SQ SCH (21:49)
[2021-09-21 23:00] VITALS: BP 131/83
[2021-09-22] MEDS: PIPERACILLIN/TAZOBACTAM 3.375 GM in IV NORMAL SALINE 50ML 50 ML IV SCH ×4 (06:00→23:28)
[2021-09-22] MEDS: IV NORMAL SALINE 1000ML BAG 1,000 ML IV SCH ×2 (06:00→20:39)
[2021-09-22 07:00] VITALS: BP 126/22
[2021-09-22 11:00] VITALS: BP 145/82
--- NOTE | 2021-09-22 11:47 | PDOC ---
[facility] PROGRESS NOTE Date of Service DOS: DATE: 09/22/21 TIME: 11:44 Chief Complaint Chief Complaint Postop day 4 partial bowel resection Small bowel obstruction Pathology concerned for possible neuroendocrine tumor. Right lower quadrant mass Nausea and vomiting Leukocytosis History of Present Illness History of Present Illness 09/22/2021 Patient seen and examined Chart reviewed Discussed with RN Post-op day 4 exploratory laparotomy with tumor resection. NG has been removed. I spoke with Pathology - the results indicate neuroendocrine tumor with alek involvement. I spoke with Oncology - the tumor has been fully resected. Patient ok to follow- up outpatient for routine tumor marker screenings. Patient has been informed of his diagnosis and prognosis. Vitals/I&O Vitals/I&O: Vital Signs Date Time Temp Pulse Resp B/P (MAP) Pulse Ox O2 Delivery O2 Flow Rate FiO2 09/22/21 07:00 98.0 89 18 126/22 (56) 93 Room Air 98.0 I & O 09/21/21 09/21/21 09/22/21 15:00 23:00 07:00 Output Total 250 ml Balance -250 ml Physical Exam General: Alert, Oriented X3, Cooperative Heart: Regular rate, No murmurs Lungs: Clear Abdomen: Soft, Other (ND, incision c/d/i) Extremities: No edema Skin: No significant lesion Labs Labs: Laboratory Tests Test 09/21/21 14:29 Urine Collection Type Unknown Urine Color La Urine Clarity Clear Urine pH 6.0 (<5.0-8.0) Urine Specific [place] >=1.030 (1.000-1.030) Urine Protein 30 mg/dL (NEG-TRACE) Urine Glucose (UA) Negative mg/dL (NEG) Urine Ketones (Stick) >=80 mg/dL (NEG) Urine Blood Negative (NEG) Urine Nitrite Negative (NEG) Urine Bilirubin Negative (NEG) Urine Urobilinogen Dipstick 0.2 mg/dL (0.2 mg/dL) Urine Leukocyte Esterase Negative (NEG) Urine RBC 1-2 /HPF (0-2) Urine WBC 1-4 /HPF (0-4) Urine Squamous Epithelial Cells Few /LPF Urine Bacteria 0 /HPF (0-FEW) Urine Mucus Slight /LPF Assessment and Plan Assessmemt and Plan Postop day 4 partial bowel resection Small bowel obstruction Pathology concerned for possible neuroendocrine tumor. Right lower quadrant mass Nausea and vomiting Leukocytosis Advance diet as tolerated DVT prophylaxis Wound care Trend labs Home meds Appreciate subspecialist input Probable discharge home tomorrow Comment Review of Relevant I have reviewed the following items anna marie (where applicable) has been applied. Medications: Current Medications Medications (Trade) Dose Ordered Sig/Mirta Route PRN Reason Start Time Stop Time Status Last Admin Dose Admin Sodium Chloride 1,000 ml @ 75 mls/hr [id number] IV 09/21/21 13:00 09/22/21 06:00 Acetaminophen (Tylenol) 1,000 mg PRN Q6HRS PRN PO FEVER > 101 09/21/21 14:15 09/21/21 21:48 Justifications for Admission Other Justification DIANA ALARCON III DO Sep 22, 2021 11:47
[2021-09-22] MEDS: MORPHINE SULFATE 4 MG/ML INJ. IV PRN ×2 (14:20→22:07)
[2021-09-22 15:00] VITALS: BP 124/79
--- NOTE | 2021-09-22 15:06 | PDOC ---
SURGICAL PROGRESS NOTE DATE: 09/22/21 TIME: 15:05 Subjective Patient doing quite well has had several bowel movements no nausea Vital Signs Vital Signs Date Time Temp Pulse Resp B/P (MAP) Pulse Ox O2 Delivery O2 Flow Rate FiO2 09/22/21 14:20 94 Room Air 09/22/21 11:00 99.7 101 18 145/82 (103) 99.7 I&O Intake and Output 09/22/21 07:00 Output Total 250 ml Balance -250 ml Output Urine Total 250 ml # Voids 1 PATIENT HAS A RAMEY: No General: Alert, Oriented X3, Cooperative, mild distress Abdomen: Normal bowel sounds, Soft, Other (Mild incisional tenderness wounds clean dry and intact) Labs Laboratory Tests Test 09/21/21 04:10 09/21/21 14:29 White Blood Count 18.9 x10^3/uL (4.0-11.0) Red Blood Count 4.20 x10^6/uL (4.30-5.70) Hemoglobin 10.9 g/dL (13.0-17.5) Hematocrit 34.7 % (39.0-53.0) Mean Corpuscular Volume 83 fL (79-100) Mean Corpuscular Hemoglobin 26 pg (25-35) Mean Corpuscular Hemoglobin Concent 32 g/dL (31-37) Red Cell Distribution Width 18.8 % (11.5-14.5) Platelet Count 168 x10^3/uL (140-400) Sodium Level 141 mmol/L (136-145) Potassium Level 3.8 mmol/L (3.5-5.1) Chloride Level 107 mmol/L (98-107) Carbon Dioxide Level 25 mmol/L (21-32) Anion Gap 9 (6-14) Blood Urea Nitrogen 12 mg/dL (8-26) Creatinine 0.7 mg/dL (0.7-1.3) Estimated GFR (Cockcroft-Gault) 117.5 Glucose Level 89 mg/dL (70-99) Calcium Level 7.7 mg/dL (8.5-10.1) Urine Collection Type Unknown Urine Color La Urine Clarity Clear Urine pH 6.0 (<5.0-8.0) Urine Specific [place] >=1.030 (1.000-1.030) Urine Protein 30 mg/dL (NEG-TRACE) Urine Glucose (UA) Negative mg/dL (NEG) Urine Ketones (Stick) >=80 mg/dL (NEG) Urine Blood Negative (NEG) Urine Nitrite Negative (NEG) Urine Bilirubin Negative (NEG) Urine Urobilinogen Dipstick 0.2 mg/dL (0.2 mg/dL) Urine Leukocyte Esterase Negative (NEG) Urine RBC 1-2 /HPF (0-2) Urine WBC 1-4 /HPF (0-4) Urine Squamous Epithelial Cells Few /LPF Urine Bacteria 0 /HPF (0-FEW) Urine Mucus Slight /LPF Assessment/Plan Status post resection of abdominal mass and small bowel. Advance diet to full liquids Justicifation of Admission Dx: Justifications for Admission: Justification of Admission Dx: Yes CHF: Cardiac Arrhythmias SAIDA CARL MD Sep 22, 2021 15:06
[2021-09-22 17:05] VITALS: BP 147/82
[2021-09-22 19:30] VITALS: BP 134/71
[2021-09-22] MEDS: ENOXAPARIN 40 MG/0.4 ML SYRINGE. SQ SCH (20:38)
[2021-09-22] MEDS: ACETAMINOPHEN 500 MG TABLET PO PRN (22:01)
--- NOTE | 2021-09-22 22:31 | PATHOLOGY ---
[facility] Accession Number: [id number] . 01 Material submitted: . small bowel - MESENTERIC MASS AND SMALL BOWEL . 01 Clinical history: . SMALL BOWEL OBSTRUCTION WITH ASSOCIATED MESENTERIC MASS EXPLORATORY LAPAROTOMY = SMALL BOWEL RESECTION, RESECTION OF ABDOMINAL MASS . 02 Diagnosis: Segment of small intestine and attached mesentery, small bowel and mesenteric mass resection: - Well-differentiated neuroendocrine tumor, grade I, invasive, multifocal, ranging from 0.4 up to 3.9 cm in greatest dimension, with tumor involvement of mucosa, submucosa, and muscularis propria with several foci of tumor invasion through muscularis propria into subserosa, and with several foci of tumor associated small bowel constriction and stenosis. - Metastatic neuroendocrine tumor, mesentery, forming a few mesenteric masses, the largest measuring up to 4.5 cm in greatest dimention. - Metastatic neuroendocrine tumor involving 12 of 25 mesenteric lymph nodes. - Focal lymphovascular tumor invasion identified. - Focal perineural tumor invasion identified within mesentery. - Proximal and distal small bowel margins of resection negative for tumor. - Metastatic neuroendocrine tumor within lymph nodes is focally approximately 1 mm from the mesenteric margin of resection. - Acute and chronic ischemic changes of small bowel mucosa, focal. (JPM:hector/vida; 09/20/2021) . . Surgical Pathology Cancer Case Summary . Protocol posting date: March 2017 . JEJUNUM AND ILEUM NEUROENDOCRINE TUMOR . Procedure ___ Segmental resection, small intestine . Tumor Site ___ Small intestine, not otherwise specified . Tumor Size Greatest dimension (centimeters): 3.9 cm . Tumor Focality ___ Multifocal: At least 11 tumors . Histologic Type and Grade ___ G1: Well-differentiated neuroendocrine tumor . Ki-67 Labeling Index ___ <3% . Tumor Extension ___ Tumor invades through the muscularis propria into subserosal tissue without penetration of overlying serosa Margins ___ All margins are uninvolved by tumor Margins examined: Proximal, distal, and mesenteric + Distance of tumor from closest margin: 1 mm + Specify closest margin: Mesenteric margin . Lymphovascular Invasion ___ Present . + Perineural Invasion + ___ Present . Large Mesenteric Masses (>2 cm) ___ Present + Specify number: At least 3 masses . Regional Lymph Nodes . Number of Lymph Nodes Involved: 12 . Number of Lymph Nodes Examined: 25 Pathologic Stage Classification (pTNM, AJCC 8th Edition) . Primary Tumor (pT) ___ pT3(m): Invades through the muscularis propria into subserosal tissue without penetration of overlying serosa . Regional Lymph Nodes (pN) ___ pN2: Large mesenteric masses (>2 cm) and/or extensive alek deposits (12 or greater) . + Additional Pathologic Findings (select all that apply) + ___ Other (specify): Acute and chronic mucosal ischemic changes. (JPM:chi; 09/21/2021) R 09/22/2021 1256 Local . 02 Comment: Gross examination of the opened small bowel reveals at least 11 small bowel tumors, ranging from 0.4 up to 3.9 cm in greatest dimension. The small bowel tumors histologically appear similar. The tumor cells have a solid nested, trabecular, and focal acinar arrangement. The tumor cells appear uniform, and have modest amounts of eosinophilic cytoplasm and possess rounded uniform nuclei having a stippled chromatin. The majority of the tumors involve mucosa, submucosa, and muscularis propria. Several of the tumors infiltrate through the muscularis propria into the subserosa and are associated with serosal fibrosis. There is focal lymphovascular and perineural tumor invasion. Tumor cells focally abut the serosal surface but do not appear to invade through the serosa. Several immunoperoxidase stains are obtained and yield the following results. . Chromogranin (A3): Tumor cells positive. Synaptophysin (A3): Tumor cells positive Ki-67 (A3): Proliferation index less than 3% Ki-67 (A5): Proliferation index less than 3% Ki-67 (A7): Proliferation index less than 3% . The morphologic and immunophenotypic findings are supportive of the diagnosis of multifocal well-differentiated neuroendocrine tumor, grade I. There are a few mesenteric masses of metastatic neuroendocrine tumor, the largest measuring 4.5 cm in greatest dimension. In addition, there is metastatic neuroendocrine tumor involving 12 of 25 mesenteric lymph nodes. The proximal and distal small bowel margins of resection are negative for tumor. Metastatic neuroendocrine tumor within small lymph nodes is focally approximately 1 mm from the mesenteric margin of resection. . The case is also examined by Dr. Moralez, who concurs with the diagnosis. The results are discussed with Dr. Bartlett on 09/21/21 at 1:[address] Alves on 09/22/21. (JPM:pit; 09/21/2021) . Special stains performed: Immunoperoxidase for chromogranin, synaptophysin on A3 and Ki-67 on A3, A5, and A7. . 02 Electronically signed: . Damion Hernandez MD, Pathologist NPI- [id number] . 01 Gross description: . The specimen is received in formalin, labeled "Richard Nehemias, mesenteric mass and small bowel" and consists of an unoriented tortuous segment of small bowel with focal enteric-enteric adhesions (approximately 76.5 cm in length and ranging in diameter from 2.3 cm to 3.8 cm). The serosa is benjamin-torres, smooth and focally dusky, and hemorrhagic. The serosa displays 4 areas of puckering (selectively inked green, ranging from 0.9 x 0.8 cm to 3.0 x 2.8 cm). The staple margins are differentially inked black and blue and the mesenteric margin is inked orange. The specimen has been previously opened lengthwise to reveal at least 11 torres-pink, rubbery and firm submucosal masses (ranging from 0.4 x 0.4 cm to 3.9 x 2.0 cm). Sectioning reveals wood-yellow, rubbery cut surfaces (ranging from 0.3 cm to 1.9 cm thick) the nearest of which comes to within 13.0 cm from the blue inked margin, 18.4 cm from the black inked margin and approximately 5.0 cm from the mesenteric margin. Several of the masses are associated with the areas of serosal puckering and abut but do not appear to involve the overlying serosa. The masses focally invade the attached mesenteric fat up to 0.2 cm. The remaining mucosa has an erythematous granular to polypoid appearance, with the latter areas ranging from 0.2 cm up to 0.6 cm in greatest dimension, the nearest of which comes to within 6.2 cm from the black inked margin, approximately 18.0 cm from the blue inked margin and approximately 7.0 cm from the nearest mesenteric margin. Sectioning through the larger polypoid areas reveals red-brown unremarkable cut surfaces without evidence of invasion. Located 0.3 cm from the blue inked margin are 3 submucosal areas of hemorrhage (ranging from 0.9 x 0.9 cm to 2.5 x 1.9 cm). The attached mesenteric fat displays at least 3 torres to pale yellow rubbery nodules, ranging from 1.4 x 1.0 x 0.3 cm to 4.5 x 2.3 x 2.2 cm, that are suspicious for involving the overlying mesenteric margin. The fat underlying the nodules is focally fibrotic. Twenty-one rubbery torres to pale yellow candidate lymph nodes are identified (ranging from 0.3 x 0.2 x 0.2 cm to approximately 1.0 x 0.7 x 0.5 cm). Photographs are taken. Aquaculture Farm Manager sections to include the entirety of the candidate lymph nodes are submitted as follows: . A1: Black inked margin, submitted en face, entirely submitted A2: Blue inked margin, submitted en face, entirely submitted A3-A10: Submucosal masses, submitted sequentially from black inked margin to blue inked margin, represented with a contiguous bisected section submitted in A8-A9 and the deepest depth of invasion submitted in A10 A11-A17: Polyps submitted sequentially from the black inked margin to blue inked margin, represented A18: Submucosal hemorrhage, represented A19-A20: Nodules, represented, to show proximity to overlying mesenteric margin A21-A23: Nodules in attached fat, represented A24: Fibrotic fat underlying nodules, represented A25: Sections to show self-adherence, represented A26: 6 intact lymph nodes, entirely submitted A27: 4 intact lymph nodes, entirely submitted A28: 1 bisected lymph node (inked black) and one serially sectioned lymph node (not inked), entirely submitted A29: 3 bisected lymph nodes, 2 of which are differentially inked black and blue, the third is not inked, entirely submitted A30: 1 serially sectioned candidate lymph node (not inked), entirely submitted in one bisected candidate lymph node (inked black), entirely submitted A31: 1 bisected lymph node, entirely submitted A32: 1 trisected lymph node, entirely submitted A33: 1 serially sectioned lymph node, entirely submitted A34: 1 trisected lymph node, entirely submitted (TRIBAL; 09/19/2021) DKA/DKA 09/20/2021 1635 Local . 02 Pathologist provided ICD-10: C7A.1, C7B.8 . 02 CPT . 328092, 028330, R48170, S25136 Specimen Comment: A courtesy copy of this report has been sent to [phone], [phone] Specimen Comment: [id number], Specimen Comment: Report sent to , DR MACIAS / DR CARL Performed at: 01 [facility] [address] [facility] [address], [place] [id number] MD Matthew Santos MD Phone: [phone] Performed at: 02 [facility] [address] [place], [place] [id number] MD Damion Hernandez MD Phone: [phone]
[2021-09-22 23:06] VITALS: BP 133/74
[2021-09-23 03:54] VITALS: BP 122/80
[2021-09-23] MEDS: IV NORMAL SALINE 1000ML BAG 1,000 ML IV SCH ×2 (05:00→11:43)
[2021-09-23] MEDS: PIPERACILLIN/TAZOBACTAM 3.375 GM in IV NORMAL SALINE 50ML 50 ML IV SCH ×2 (05:40→10:21)
[2021-09-23 06:58] LABS: BASO # 0.1 x10^3/uL (0.0-0.2); BASO % 1 % (0-3); EOS # 0.2 x10^3/uL (0.0-0.7); EOS % 1 % (0-3); HEMATOCRIT 32.5 % (39.0-53.0); HEMOGLOBIN 10.6 g/dL (13.0-17.5); LYMPH # 0.8 x10^3/uL (1.0-4.8); LYMPH % 5 % (24-48); MEAN CORPUSCULAR HEMOGLOBIN 27 pg (25-35); MEAN CORPUSCULAR HGB CONC 33 g/dL (31-37); MEAN CORPUSCULAR VOLUME 82 fL (79-100); MONO # 1.4 x10^3/uL (0.0-1.1); MONO % 9 % (0-9); NEUT # 12.6 x10^3/uL (1.8-7.7); NEUT % 84 % (31-73); PLATELET COUNT 224 x10^3/uL (140-400); RED BLOOD COUNT 3.98 x10^6/uL (4.30-5.70); RED CELL DISTRIBUTION WIDTH 18.9 % (11.5-14.5)
[2021-09-23 07:00] VITALS: BP 133/78
--- NOTE | 2021-09-23 08:24 | PDOC ---
SURGICAL PROGRESS NOTE DATE: 09/23/21 TIME: 08:23 Subjective Patient doing quite well tolerating full liquid diet having bowel movements Vital Signs Vital Signs Date Time Temp Pulse Resp B/P (MAP) Pulse Ox O2 Delivery O2 Flow Rate FiO2 09/23/21 07:00 98.9 85 18 133/78 (96) 95 98.9 09/23/21 03:54 Room Air 09/22/21 17:05 2.0 I&O Intake and Output 09/23/21 07:00 Intake Total 360 ml Balance 360 ml Intake Oral 360 ml # Voids 2 # Bowel Movements 1 PATIENT HAS A RAMEY: No General: Alert, Oriented X3, Cooperative, mild distress Abdomen: Normal bowel sounds, Soft, Other (Wounds clean dry and intact mildly tender to palpation) Labs Laboratory Tests Test 09/21/21 14:29 09/23/21 06:40 Urine Collection Type Unknown Urine Color La Urine Clarity Clear Urine pH 6.0 (<5.0-8.0) Urine Specific [place] >=1.030 (1.000-1.030) Urine Protein 30 mg/dL (NEG-TRACE) Urine Glucose (UA) Negative mg/dL (NEG) Urine Ketones (Stick) >=80 mg/dL (NEG) Urine Blood Negative (NEG) Urine Nitrite Negative (NEG) Urine Bilirubin Negative (NEG) Urine Urobilinogen Dipstick 0.2 mg/dL (0.2 mg/dL) Urine Leukocyte Esterase Negative (NEG) Urine RBC 1-2 /HPF (0-2) Urine WBC 1-4 /HPF (0-4) Urine Squamous Epithelial Cells Few /LPF Urine Bacteria 0 /HPF (0-FEW) Urine Mucus Slight /LPF White Blood Count 15.0 x10^3/uL (4.0-11.0) Red Blood Count 3.98 x10^6/uL (4.30-5.70) Hemoglobin 10.6 g/dL (13.0-17.5) Hematocrit 32.5 % (39.0-53.0) Mean Corpuscular Volume 82 fL (79-100) Mean Corpuscular Hemoglobin 27 pg (25-35) Mean Corpuscular Hemoglobin Concent 33 g/dL (31-37) Red Cell Distribution Width 18.9 % (11.5-14.5) Platelet Count 224 x10^3/uL (140-400) Neutrophils (%) (Auto) 84 % (31-73) Lymphocytes (%) (Auto) 5 % (24-48) Monocytes (%) (Auto) 9 % (0-9) Eosinophils (%) (Auto) 1 % (0-3) Basophils (%) (Auto) 1 % (0-3) Neutrophils # (Auto) 12.6 x10^3/uL (1.8-7.7) Lymphocytes # (Auto) 0.8 x10^3/uL (1.0-4.8) Monocytes # (Auto) 1.4 x10^3/uL (0.0-1.1) Eosinophils # (Auto) 0.2 x10^3/uL (0.0-0.7) Basophils # (Auto) 0.1 x10^3/uL (0.0-0.2) Laboratory Tests Test 09/23/21 06:40 White Blood Count 15.0 x10^3/uL (4.0-11.0) Red Blood Count 3.98 x10^6/uL (4.30-5.70) Hemoglobin 10.6 g/dL (13.0-17.5) Hematocrit 32.5 % (39.0-53.0) Mean Corpuscular Volume 82 fL (79-100) Mean Corpuscular Hemoglobin 27 pg (25-35) Mean Corpuscular Hemoglobin Concent 33 g/dL (31-37) Red Cell Distribution Width 18.9 % (11.5-14.5) Platelet Count 224 x10^3/uL (140-400) Neutrophils (%) (Auto) 84 % (31-73) Lymphocytes (%) (Auto) 5 % (24-48) Monocytes (%) (Auto) 9 % (0-9) Eosinophils (%) (Auto) 1 % (0-3) Basophils (%) (Auto) 1 % (0-3) Neutrophils # (Auto) 12.6 x10^3/uL (1.8-7.7) Lymphocytes # (Auto) 0.8 x10^3/uL (1.0-4.8) Monocytes # (Auto) 1.4 x10^3/uL (0.0-1.1) Eosinophils # (Auto) 0.2 x10^3/uL (0.0-0.7) Basophils # (Auto) 0.1 x10^3/uL (0.0-0.2) Assessment/Plan Tolerating diet advanced to regular Work more incentive spirometry Justicifation of Admission Dx: Justifications for Admission: Justification of Admission Dx: Yes CHF: Cardiac Arrhythmias SAIDA CARL MD Sep 23, 2021 08:24
[2021-09-23] MEDS: MORPHINE SULFATE 4 MG/ML INJ. IV PRN (10:21)
[2021-09-23 10:50] VITALS: BP 134/71
--- NOTE | 2021-09-23 11:48 | PDOC ---
[facility] PROGRESS NOTE Date of Service DOS: DATE: 09/23/21 TIME: 11:45 Chief Complaint Chief Complaint Postop day 4 partial bowel resection Small bowel obstruction Pathology concerned for possible neuroendocrine tumor. Right lower quadrant mass Nausea and vomiting Leukocytosis History of Present Illness History of Present Illness 09/23/2021 Patient seen and examined, in NAD Chart Reviewed Discussed with RN Post op Day 5 exploratory laparotomy with tumor resection. Probable discharge home today after patient tolerates solid food. 09/22/2021 Patient seen and examined Chart reviewed Discussed with RN Post-op day 4 exploratory laparotomy with tumor resection. NG has been removed. I spoke with Pathology - the results indicate neuroendocrine tumor with alek involvement. I spoke with Oncology - the tumor has been fully resected. Patient ok to follow- up outpatient for routine tumor marker screenings. Patient has been informed of his diagnosis and prognosis. Vitals/I&O Vitals/I&O: Vital Signs Date Time Temp Pulse Resp B/P (MAP) Pulse Ox O2 Delivery O2 Flow Rate FiO2 09/23/21 10:56 93 Room Air 2.0 09/23/21 10:50 99.6 83 18 134/71 (92) 99.6 I & O 09/22/21 09/22/21 09/23/21 15:00 23:00 07:00 Intake Total 360 ml Balance 360 ml Physical Exam General: Alert, Oriented X3, Cooperative, mild distress Heart: Regular rate, No murmurs Lungs: Clear Abdomen: Normal bowel sounds, Soft, Other (Wounds clean dry and intact mildly tender to palpation) Extremities: No edema Skin: No significant lesion Labs Labs: Laboratory Tests Test 09/23/21 06:40 White Blood Count 15.0 x10^3/uL (4.0-11.0) Red Blood Count 3.98 x10^6/uL (4.30-5.70) Hemoglobin 10.6 g/dL (13.0-17.5) Hematocrit 32.5 % (39.0-53.0) Mean Corpuscular Volume 82 fL (79-100) Mean Corpuscular Hemoglobin 27 pg (25-35) Mean Corpuscular Hemoglobin Concent 33 g/dL (31-37) Red Cell Distribution Width 18.9 % (11.5-14.5) Platelet Count 224 x10^3/uL (140-400) Neutrophils (%) (Auto) 84 % (31-73) Lymphocytes (%) (Auto) 5 % (24-48) Monocytes (%) (Auto) 9 % (0-9) Eosinophils (%) (Auto) 1 % (0-3) Basophils (%) (Auto) 1 % (0-3) Neutrophils # (Auto) 12.6 x10^3/uL (1.8-7.7) Lymphocytes # (Auto) 0.8 x10^3/uL (1.0-4.8) Monocytes # (Auto) 1.4 x10^3/uL (0.0-1.1) Eosinophils # (Auto) 0.2 x10^3/uL (0.0-0.7) Basophils # (Auto) 0.1 x10^3/uL (0.0-0.2) Assessment and Plan Assessmemt and Plan Postop day 5 partial bowel resection Small bowel obstruction Pathology concerned for possible neuroendocrine tumor. Right lower quadrant mass Nausea and vomiting Leukocytosis Probable discharge home today For now continue the following: Advance diet as tolerated Continue Antibiotics DVT prophylaxis Wound care Trend labs Home meds Appreciate subspecialist input Comment Review of Relevant I have reviewed the following items anna marie (where applicable) has been applied. Justifications for Admission Other Justification DIANA ALARCON III DO Sep 23, 2021 11:48
--- NOTE | 2021-09-23 12:48 | DS ---
DATE OF DISCHARGE: 09/23/2021 ADMISSION DIAGNOSIS: Small-bowel obstruction. DISCHARGE DIAGNOSIS: Postoperative partial colon resection (pathology is confirming a neuroendocrine tumor such as carcinoid). HOSPITAL COURSE: The patient is a pleasant middle-aged male who presented with a small-bowel obstruction. He was admitted. We have consulted General Surgery. He was taken for partial bowel resection. The pathology confirmed a neuroendocrine tumor. I discussed the case with Oncology. It appears the tumor has been resected successfully. He would simply like to have the patient follow with him closely for outpatient monitoring with tumor markers. Clinically, the patient is doing well. Today, I saw him and examined him. He is tolerating clear liquids. We are going to advance his diet and discharge this afternoon. DISPOSITION: Home. ACTIVITY: As tolerated. DIET: Low sodium. MEDICATIONS: Please see the MRAD. Aspirin 325 a day, metoprolol 25 a day. Total time [address]: Tomi TID: [id number]
--- NOTE | 2021-09-23 13:16 | NUR ---
SW following. Discussed with RN, discharge order for home with self care. RN advised no SW needs at this time.
--- NOTE | 2021-09-23 13:47 | PDOC2 ---
CONSULT Date of Consult Date of Consult DATE: 09/23/21 TIME: 13:40 Reason for Consult Reason for Consult: Neuroendocrine tumor Referring Physician Referring Physician: Dr. Alves Identification/Chief Complaint Chief Complaint Abdominal pain Source Source: Chart review, Patient History of Present Illness Reason for Visit: Nehemias Zavaleta is a 55-year-old male who has been admitted to the hospital after presenting with abdominal pain. Patient reported recent onset abdominal pain that started approximately 2 to 3 weeks ago. He received a CT of the abdomen for further evaluation which showed mechanical small bowel obstruction related to a mesenteric mass in the right lower quadrant measuring 4.7 x 2.8 cm. He was subsequently seen by Dr. Munoz after being hospitalized at [facility]. Surgical excision was recommended and on 09/18/2021, Dr. Munoz performed exploratory laparotomy with small bowel resection and resection of abdominal mass. Surgical pathology is pending at this time but I discussed with Dr. 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 Low-grade disease was noted as evidenced by Ki-67 of 3%. Medical oncology consultation has been requested due to the patient's diagnosis. He has recovered appropriately from surgery and hospital discharge has been planned for today Past Medical History Cardiovascular: No pertinent hx Pulmonary: No pertinent hx GI: GI bleed, Peptic Ulcer disease Heme/Onc: No pertinent hx Hepatobiliary: No pertinent hx Psych: No pertinent hx Rheumatologic: No pertinent hx Infectious disease: No pertinent hx Renal/: No pertinent hx Endocrine: No pertinent hx Past Surgical History Past Surgical History: No pertinent history Family History Family History: Other Social History ALCOHOL: other Drugs: None Lives: with Family Current Medications Current Medications Current Medications Sodium Chloride 1,000 ml @ 1,000 mls/hr Q1H IV Last administered on 09/17/21at 23:20; Start 09/17/21 at 23:00; Stop 09/17/21 at 23:59; Status DC Fentanyl Citrate (Fentanyl 2ml Vial) 25 mcg 1X ONCE IVP Last administered on 09/17/21at 23:24; Start 09/17/21 at 23:00; Stop 09/17/21 at 23:01; Status DC Famotidine (Pepcid Vial) 20 mg 1X ONCE IVP Last administered on 09/17/21at 23:21; Start 09/17/21 at 23:00; Stop 09/17/21 at 23:01; Status DC Iohexol (Omnipaque 300 Mg/ml) 75 ml 1X ONCE IV Last administered on 09/17/21at 23:31; Start 09/17/21 at 23:30; Stop 09/17/21 at 23:31; Status DC Info (CONTRAST GIVEN -- Rx MONITORING) 1 each PRN DAILY PRN MC SEE COMMENTS; Start 09/17/21 at 23:30; Stop 09/19/21 at 23:29; Status DC Ondansetron HCl (Zofran) 4 mg PRN Q8HRS PRN IVP NAUSEA/VOMITING; Start 09/18/21 at 02:00; Stop 09/18/21 at 19:36; Status DC Morphine Sulfate (Morphine Sulfate) 4 mg PRN Q2HR PRN IVP PAIN; Start 09/18/21 at 02:00; Stop 09/18/21 at 21:35; Status DC Cefazolin Sodium/ Dextrose 50 ml @ 100 mls/hr 1X ONCE IV ; Start 09/18/21 at 09:30; Stop 09/18/21 at 09:59; Status DC Fentanyl Citrate (Fentanyl 2ml Vial) 25 mcg PRN Q5MIN PRN IVP MILD PAIN 1-3; Start 09/18/21 at 10:00; Stop 09/18/21 at 22:00; Status DC Fentanyl Citrate (Fentanyl 2ml Vial) 50 mcg PRN Q5MIN PRN IVP MODERATE PAIN 4-6 Last administered on 09/18/21at 20:03; Start 09/18/21 at 10:00; Stop 09/18/21 at 22:00; Status DC Morphine Sulfate (Morphine Sulfate) 1 mg PRN Q10MIN PRN IVP SEVERE PAIN 7-10; Start 09/18/21 at 10:00; Stop 09/18/21 at 22:00; Status DC Ringer's Solution 1,000 ml @ 30 mls/hr Q24H IV ; Start 09/18/21 at 10:00; Stop 09/18/21 at 21:59; Status DC Hydromorphone HCl (Dilaudid) 0.5 mg PRN Q10MIN PRN IVP SEVERE PAIN 7-10, 2nd CHOICE Last administered on 09/18/21at 20:19; Start 09/18/21 at 10:00; Stop 09/18/21 at 22:00; Status DC Prochlorperazine Edisylate (Compazine) 5 mg PACU PRN PRN IVP NAUSEA, MRX1 Last administered on 09/18/21at 19:53; Start 09/18/21 at 10:00; Stop 09/18/21 at 22:00; Status DC Sodium Chloride 1,000 ml @ 100 mls/hr Q10H IV Last administered on 09/19/21at 07:57; Start 09/18/21 at 10:30; Stop 09/19/21 at 12:38; Status DC Piperacillin Sod/ Tazobactam Sod 3.375 gm/Sodium Chloride 50 ml @ 100 mls/hr Q6HRS IV Last administered on 09/23/21at 10:21; Start 09/18/21 at 12:00 Rocuronium [place] (Zemuron) 50 mg STK-MED ONCE .ROUTE ; Start 09/18/21 at 16:10; Stop 09/18/21 at 16:11; Status DC Fentanyl Citrate (Fentanyl 2ml Vial) 100 mcg STK-MED ONCE .ROUTE ; Start 09/18/21 at 16:11; Stop 09/18/21 at 16:11; Status DC Fentanyl Citrate (Fentanyl 2ml Vial) 100 mcg STK-MED ONCE .ROUTE ; Start 09/18/21 at 18:11; Stop 09/18/21 at 18:11; Status DC Hydromorphone HCl (Dilaudid) 2 mg STK-MED ONCE .ROUTE ; Start 09/18/21 at 18:27; Stop 09/18/21 at 18:28; Status DC Propofol (Diprivan) 200 mg STK-MED ONCE IV ; Start 09/18/21 at 18:31; Stop 09/18/21 at 18:31; Status DC Lidocaine HCl (Lidocaine Pf 2% Vial) 5 ml STK-MED ONCE .ROUTE ; Start 09/18/21 at 18:31; Stop 09/18/21 at 18:31; Status DC Dexamethasone Sodium Phosphate (Decadron) 4 mg STK-MED ONCE .ROUTE ; Start 09/18/21 at 18:31; Stop 09/18/21 at 18:31; Status DC Ondansetron HCl (Zofran) 4 mg STK-MED ONCE .ROUTE ; Start 09/18/21 at 18:31; Stop 09/18/21 at 18:31; Status DC Rocuronium [place] (Zemuron) 50 mg STK-MED ONCE .ROUTE ; Start 09/18/21 at 18:32; Stop 09/18/21 at 18:32; Status DC Bupivacaine HCl/ Epinephrine Bitart (Sensorcain-Epi 0.25% Kit) 30 ml STK-MED ONCE .ROUTE Last administered on 09/18/21at 19:14; Start 09/18/21 at 19:09; Stop 09/18/21 at 19:09; Status DC Ketorolac Tromethamine (Toradol 15mg Vial) 15 mg Q6HRS IVP Last administered on 09/19/21at 23:30; Start 09/19/21 at 00:00; Stop 09/20/21 at 01:01; Status DC Ondansetron HCl (Zofran) 4 mg PRN Q6HRS PRN IVP NAUSEA/VOMITING Last administered on 09/19/21at 07:56; Start 09/18/21 at 19:30 Prochlorperazine Edisylate (Compazine) 10 mg STK-MED ONCE .ROUTE ; Start 09/18/21 at 19:50; Stop 09/18/21 at 19:50; Status DC Fentanyl Citrate (Fentanyl 2ml Vial) 100 mcg STK-MED ONCE .ROUTE ; Start 09/18/21 at 19:50; Stop 09/18/21 at 19:51; Status DC Hydromorphone HCl (Dilaudid) 2 mg STK-MED ONCE .ROUTE ; Start 09/18/21 at 20:04; Stop 09/18/21 at 20:04; Status DC Morphine Sulfate (Morphine Sulfate) 4 mg PRN Q2HR PRN IV PAIN Last administered on 09/23/21at 10:21; Start 09/18/21 at 22:45 Amino Acids/ Electrolytes/ Dextrose 1,000 ml @ 80 mls/hr [id number] IV Last administered on 09/21/21at 02:21; Start 09/19/21 at 11:45; Stop 09/21/21 at 12:48; Status DC Cefazolin Sodium/ Dextrose (Ancef 2gm Premix) 2 gm STK-MED ONCE IV ; Start 09/18/21 at 11:00; Stop 09/19/21 at 12:55; Status DC Ketorolac Tromethamine (Toradol 30mg Vial) 15 mg Q6HRS IVP Last administered on 09/20/21at 18:18; Start 09/20/21 at 06:00; Stop 09/20/21 at 23:59; Status DC Enoxaparin Sodium (Lovenox 40mg Syringe) 40 mg Q24H SQ Last administered on 09/22/21at 20:38; Start 09/20/21 at 21:00 Sodium Chloride 1,000 ml @ 75 mls/hr [id number] IV Last administered on 09/23/21at 11:43; Start 09/21/21 at 13:00 Acetaminophen (Tylenol) 1,000 mg PRN Q6HRS PRN PO FEVER > 101 Last administered on 09/22/21at 22:01; Start 09/21/21 at 14:15 Active Scripts Active Aspirin Ec (Aspirin) 325 Mg Tablet.dr 1 Tab PO DAILY 90 Days Metoprolol Tartrate 25 Mg Tablet 25 Mg PO BID 90 Days Allergies Allergies: Coded Allergies: No Known Drug Allergies (Unverified , 05/29/17) ROS Review of System Negative unless stated otherwise in HPI Physical Exam Physical Exam General: Awake, alert, no distress Head: Atraumatic, no conjunctival icterus, normal oral cavity mucosa Neck: Supple, no lymphadenopathy Chest: No trauma noted Cardiovascular: Regular rhythm, normal rate, no murmurs Respiratory: Bilateral air entry noted, lungs clear to auscultation bilaterally. No accessory muscle use Abdominal: Abdomen is soft, nontender, nondistended. Bowel sounds were normal. No hepatomegaly or splenomegaly Musculoskeletal: No deformity noted Extremities: No edema noted Skin: No rash or lesions Neurologic: Alert and oriented x3, no grossly evident neurologic deficits noted. Full neurological exam was not performed Psychiatric: Appropriate mood and affect Vitals VITALS Vital Signs Date Time Temp Pulse Resp B/P (MAP) Pulse Ox O2 Delivery O2 Flow Rate FiO2 09/23/21 10:56 93 Room Air 2.0 09/23/21 10:50 99.6 83 18 134/71 (92) 99.6 Labs Labs Laboratory Tests Test 09/21/21 14:29 09/23/21 06:40 Urine Collection Type Unknown Urine Color La Urine Clarity Clear Urine pH 6.0 (<5.0-8.0) Urine Specific [place] >=1.030 (1.000-1.030) Urine Protein 30 mg/dL (NEG-TRACE) Urine Glucose (UA) Negative mg/dL (NEG) Urine Ketones (Stick) >=80 mg/dL (NEG) Urine Blood Negative (NEG) Urine Nitrite Negative (NEG) Urine Bilirubin Negative (NEG) Urine Urobilinogen Dipstick 0.2 mg/dL (0.2 mg/dL) Urine Leukocyte Esterase Negative (NEG) Urine RBC 1-2 /HPF (0-2) Urine WBC 1-4 /HPF (0-4) Urine Squamous Epithelial Cells Few /LPF Urine Bacteria 0 /HPF (0-FEW) Urine Mucus Slight /LPF White Blood Count 15.0 x10^3/uL (4.0-11.0) Red Blood Count 3.98 x10^6/uL (4.30-5.70) Hemoglobin 10.6 g/dL (13.0-17.5) Hematocrit 32.5 % (39.0-53.0) Mean Corpuscular Volume 82 fL (79-100) Mean Corpuscular Hemoglobin 27 pg (25-35) Mean Corpuscular Hemoglobin Concent 33 g/dL (31-37) Red Cell Distribution Width 18.9 % (11.5-14.5) Platelet Count 224 x10^3/uL (140-400) Neutrophils (%) (Auto) 84 % (31-73) Lymphocytes (%) (Auto) 5 % (24-48) Monocytes (%) (Auto) 9 % (0-9) Eosinophils (%) (Auto) 1 % (0-3) Basophils (%) (Auto) 1 % (0-3) Neutrophils # (Auto) 12.6 x10^3/uL (1.8-7.7) Lymphocytes # (Auto) 0.8 x10^3/uL (1.0-4.8) Monocytes # (Auto) 1.4 x10^3/uL (0.0-1.1) Eosinophils # (Auto) 0.2 x10^3/uL (0.0-0.7) Basophils # (Auto) 0.1 x10^3/uL (0.0-0.2) Laboratory Tests Test 09/23/21 06:40 White Blood Count 15.0 x10^3/uL (4.0-11.0) Red Blood Count 3.98 x10^6/uL (4.30-5.70) Hemoglobin 10.6 g/dL (13.0-17.5) Hematocrit 32.5 % (39.0-53.0) Mean Corpuscular Volume 82 fL (79-100) Mean Corpuscular Hemoglobin 27 pg (25-35) Mean Corpuscular Hemoglobin Concent 33 g/dL (31-37) Red Cell Distribution Width 18.9 % (11.5-14.5) Platelet Count 224 x10^3/uL (140-400) Neutrophils (%) (Auto) 84 % (31-73) Lymphocytes (%) (Auto) 5 % (24-48) Monocytes (%) (Auto) 9 % (0-9) Eosinophils (%) (Auto) 1 % (0-3) Basophils (%) (Auto) 1 % (0-3) Neutrophils # (Auto) 12.6 x10^3/uL (1.8-7.7) Lymphocytes # (Auto) 0.8 x10^3/uL (1.0-4.8) Monocytes # (Auto) 1.4 x10^3/uL (0.0-1.1) Eosinophils # (Auto) 0.2 x10^3/uL (0.0-0.7) Basophils # (Auto) 0.1 x10^3/uL (0.0-0.2) Assessment/Plan Assessment/Plan Assessment: Small bowel neuroendocrine tumor, low-grade Abdominal pain secondary to obstruction, improved Normocytic anemia likely secondary to acute blood loss from surgery Leukocytosis, likely reactive CT findings of ankylosing spondylitis Recommendations: -I reviewed the preliminary available surgical pathology reports with the patient. I recommended outpatient medical oncology follow-up in 2 weeks to review final surgical pathology report -We discussed the evaluation of newly diagnosed small bowel neuroendocrine tumor. He has recently received CT CAP with no evidence of distant metastasis. Plan to repeat in 6 months -Plan to check chromogranin A and urine 24-hour 5-HIAA as outpatient -Continue supportive care per Dr. Munoz and surgery team -Rest per Dr. Alves. Patient was provided contact information with my office for scheduling outpatient follow-up. PB DOMINGUEZ MD Sep 23, 2021 13:47
[2021-09-23 15:00] VITALS: BP 138/76
== END 2021-09-23 18:09 | disposition home or self-care (01) | DRG 827 ==
LOC: ER 22:26 → 5 NORTH 09-18 01:53 → 4 NORTH 09-22 17:01
PROVIDERS: ADMIT Internal Medicine; ATTEND Internal Medicine
PROC: 0DB80ZZ Excision of Small Intestine, Open Approach (ICD-10-PCS; principal; 2021-09-18 16:00)
DX: D3A.8 Other benign neuroendocrine tumors (principal); K56.699 Other intestinal obstruction unspecified as to partial versus complete obstruction; D72.829 Elevated white blood cell count, unspecified; I48.91 Unspecified atrial fibrillation; I50.9 Heart failure, unspecified; M45.9 Ankylosing spondylitis of unspecified sites in spine; Z87.11 Personal history of peptic ulcer disease; D64.9 Anemia, unspecified; Z20.822 Contact with and (suspected) exposure to COVID-19
CPT/HCPCS: 36415; 71045; 71046; 74018; 74177; 80048; 80053; 81001; 83690; 84484; 85007; 85025; 85027; 87426; 88309; 88341; 88342; 88360; 93005; 96361; 96374; A4209; A4315; A4364; A4452; A4930; A5200; A6402; G0238; J0690; J0780; J1100; J1170; J1650; J1885; J2270; J2405; J2543; J2704; J3010; J3490; J7030; Q9967; U0003; U0005; 99285-25; G0378

== ENCOUNTER → 2021-09-29 | Outpatient (CLI) | payer OTHER, BC ==
[2021-09-23 15:00] VITALS: BP 138/76
[2021-09-29 12:47] LABS: BASO # 0.1 x10^3/uL (0.0-0.2); BASO % 1 % (0-3); EOS # 0.1 x10^3/uL (0.0-0.7); EOS % 1 % (0-3); HEMATOCRIT 38.4 % (39.0-53.0); HEMOGLOBIN 12.3 g/dL (13.0-17.5); LYMPH # 0.9 x10^3/uL (1.0-4.8); LYMPH % 9 % (24-48); MEAN CORPUSCULAR HEMOGLOBIN 26 pg (25-35); MEAN CORPUSCULAR HGB CONC 32 g/dL (31-37); MEAN CORPUSCULAR VOLUME 81 fL (79-100); MONO # 0.8 x10^3/uL (0.0-1.1); MONO % 8 % (0-9); NEUT # 7.6 x10^3/uL (1.8-7.7); NEUT % 81 % (31-73); PLATELET COUNT 476 x10^3/uL (140-400); RED BLOOD COUNT 4.75 x10^6/uL (4.30-5.70); WHITE BLOOD COUNT 9.3 x10^3/uL (4.0-11.0)
[2021-09-29 13:05] LABS: CALCIUM 8.4 mg/dL (8.5-10.1); CREATININE 0.7 mg/dL (0.7-1.3); GFR 117.5; POTASSIUM 4.2 mmol/L (3.5-5.1)
[2021-09-29 13:13] LABS: ALBUMIN 2.3 g/dL (3.4-5.0); ALBUMIN/GLOBULIN RATIO 0.5 (1.0-1.7); TOTAL BILIRUBIN 0.6 mg/dL (0.2-1.0); TOTAL PROTEIN 6.6 g/dL (6.4-8.2)
== END ==
LOC: ONCLAB 12:18
PROVIDERS: ATTEND Internal Medicine Hematology & Oncology
DX: C7A.011 Malignant carcinoid tumor of the jejunum (principal)
CPT/HCPCS: 80053; 85025

== ENCOUNTER 2021-10-13 09:06 | Emergency (ER) | payer OTHER, BC ==
[~2021-10-13] VITALS: Ht 177.8 cm; Wt 98.3 kg
--- NOTE | 2021-10-13 09:28 | PHYS DOC ---
Past Medical History Past Medical History: Anemia Additional Past Medical Histor: ULCER (BORIS WOOD APRN) Past Surgical History: Other Additional Past Surgical Histo: Tumor removal from abd (BORIS WOOD APRN) Smoking Status: Never Smoker Alcohol Use: None Drug Use: None (BORIS WOOD APRN) General Adult EDM: Chief Complaint: ABDOMINAL PAIN HPI: HPI: Patient is a 56-year-old male who presents to the emergency department complaining of upper/mid abdominal pains that started yesterday evening. Patient reports he was seen here at [facility] on September 17 and admitted to the hospital for a small bowel obstruction, the next day he had surgery and was told it was cancerous, patient reports he was told "they got all the cancer ", he was discharged on September 23, 2021, has followed up with oncologist Dr. Bartlett and was told everything looked fine at this time and has a follow-up appointment in 6 months. Patient reports a several year history of intermittent constipation, reports he felt as if he was constipated 3 days ago with similar upper abdominal discomfort and drink a "constipation tea" and noted a large hard bowel movement which seemed to relieve his pain, patient reports his abdominal pain started yesterday evening however he has not taken any medications for this pain on this episode. Patient denies seeing blood in his stool. Denies urinary pressure, increased urinary frequency, or dysuria, patient denies chest pains, nausea vomiting or diarrhea, denies headaches, recent fever or chills. Patient denies shortness of breath chest congestion or nasal congestion. Patient states he no longer takes medications, reports he took metoprolol for high blood pressure up until the middle of August when his cio Dr. Melo told him to stop taking blood pressure medications however the patient does not know why he was told to stop taking blood pressure medications. Patient rates his current pain a consistent 8 out of 10 describing it as sharp. Does not radiate. (BORIS WOOD APRN) Review of Systems: Review of Systems: 14 body systems of review of systems have been reviewed. See HPI for pertinent positives and negative responses, otherwise all other systems are negative, nonpertinent or noncontributory. Constitutional: Negative except as outlined in HPI above. Skin: Negative except as outlined in HPI above. Eyes: Negative except as outlined in HPI above. HENT: Negative except as outlined in HPI above. Respiratory: Negative except as outlined in HPI above. Cardiovascular: Negative except as outlined in HPI above. GI: Negative except as outlined in HPI above. : Negative except as outlined in HPI above. Musculoskeletal: Negative except as outlined in HPI above. Integument: Negative except as outlined in HPI above. Neurologic: Negative except as outlined in HPI above. Endocrine: Negative except as outlined in HPI above. Lymphatic: Negative except as outlined in HPI above. Psychiatric: Negative except as outlined in HPI above. (BORIS WOOD APRN) Heart Score: C/O Chest Pain: No Risk Factors: Risk Factors: DM, Current or recent (<one month) smoker, HTN, HLP, family history of CAD, obesity. Risk Scores: Score 0 - 3: 2.5% MACE over next 6 weeks - Discharge Home Score 4 - 6: 20.3% MACE over next 6 weeks - Admit for Clinical Observation Score 7 - 10: 72.7% MACE over next 6 weeks - Early Invasive Strategies (BORIS WOOD APRN) Allergies: Allergies: Allergies Coded Allergies Type Severity Reaction Last Updated Verified No Known Drug Allergies 05/29/17 No (BORIS WOOD APRN) Physical Exam: PE: Constitutional: Well developed, well nourished, no acute distress, non-toxic appearance. 56-year-old male holding upper abdomen, appears uncomfortable. HENT: Normocephalic, atraumatic. Eyes: Conjunctiva normal, no discharge. Neck: Normal range of motion, no stridor. Cardiovascular: No cyanosis appreciated, distal cap refill less than 2 seconds. Lungs & Thorax: Patient is in no respiratory distress, no audible adventitious lung sounds appreciated. Lung sounds clear to auscultation all lung bazzi. Abdomen:, no abnormalities noted. Normal bowel sounds all 4 quadrants, well- healing abdominal surgical scar without signs of infectious process, no drainage, edges well approximated, pain to palpation upper third of abdominal surgical scar area just above umbilicus, no masses appreciated, no rebound tenderness, no McBurney's point tenderness. Skin: Warm, dry, no erythema, no rash. Back: No tenderness, no deformities. Extremities: No tenderness, no cyanosis, no clubbing, ROM intact, no edema. Neurologic: Alert and oriented X 3, normal motor function, normal sensory function, no focal deficits noted. Psychologic: Affect normal, judgement normal, mood normal. (BORIS WOOD APRN) Current Patient Data: Labs: Laboratory Tests Test 10/13/21 09:30 10/13/21 10:30 White Blood Count 11.3 x10^3/uL Red Blood Count 4.76 x10^6/uL Hemoglobin 11.8 g/dL Hematocrit 37.3 % Mean Corpuscular Volume 78 fL Mean Corpuscular Hemoglobin 25 pg Mean Corpuscular Hemoglobin Concent 32 g/dL Red Cell Distribution Width 18.2 % Platelet Count 386 x10^3/uL Neutrophils (%) (Auto) 87 % Lymphocytes (%) (Auto) 6 % Monocytes (%) (Auto) 6 % Eosinophils (%) (Auto) 0 % Basophils (%) (Auto) 0 % Neutrophils # (Auto) 9.9 x10^3/uL Lymphocytes # (Auto) 0.7 x10^3/uL Monocytes # (Auto) 0.7 x10^3/uL Eosinophils # (Auto) 0.0 x10^3/uL Basophils # (Auto) 0.0 x10^3/uL Sodium Level 138 mmol/L Potassium Level 3.7 mmol/L Chloride Level 104 mmol/L Carbon Dioxide Level 22 mmol/L Anion Gap 12 Blood Urea Nitrogen 6 mg/dL Creatinine 0.4 mg/dL Estimated GFR (Cockcroft-Gault) 223.3 BUN/Creatinine Ratio 15 Glucose Level 118 mg/dL Lactic Acid Level 0.7 mmol/L Calcium Level 7.7 mg/dL Total Bilirubin 0.4 mg/dL Aspartate Amino Transf (AST/SGOT) 39 U/L Alanine Aminotransferase (ALT/SGPT) 55 U/L Alkaline Phosphatase 67 U/L Total Protein 5.4 g/dL Albumin 2.1 g/dL Albumin/Globulin Ratio 0.6 Lipase 73 U/L Urine Collection Type Unknown Urine Color Yellow Urine Clarity Clear Urine pH 6.0 Urine Specific Brady >=1.030 Urine Protein Negative mg/dL Urine Glucose (UA) Negative mg/dL Urine Ketones (Stick) >=80 mg/dL Urine Blood Negative Urine Nitrite Negative Urine Bilirubin Small Urine Urobilinogen Dipstick 0.2 mg/dL Urine Leukocyte Esterase Negative Urine RBC 0 /HPF Urine WBC 0 /HPF Urine Squamous Epithelial Cells Few /LPF Urine Bacteria 0 /HPF Current Medications Medications (Trade) Dose Ordered Sig/Mirta Route PRN Reason Start Time Stop Time Status Last Admin Dose Admin Morphine Sulfate (Morphine Sulfate) 4 mg 1X ONCE IVP 10/13/21 09:30 10/13/21 09:31 DC 10/13/21 09:42 Iohexol (Omnipaque 300 Mg/ml) 75 ml 1X ONCE IV 10/13/21 09:45 10/13/21 09:46 DC 10/13/21 09:45 Sodium Chloride 1,000 ml @ 1,000 mls/hr 1X ONCE IV 10/13/21 09:45 10/13/21 10:44 DC 10/13/21 09:42 Info (CONTRAST GIVEN -- Rx MONITORING) 1 each PRN DAILY PRN MC SEE COMMENTS 10/13/21 09:45 10/15/21 09:44 Morphine Sulfate (Morphine Sulfate) 4 mg 1X ONCE IVP 10/13/21 11:15 10/13/21 11:16 DC 10/13/21 12:06 Multi-Ingredient Mouthwash/Gargle (Gi Cocktail) 20 ml 1X ONCE SWSW 10/13/21 13:00 10/13/21 13:01 DC 10/13/21 13:00 Vital Signs: Vital Signs Date Time Temp Pulse Resp B/P (MAP) Pulse Ox O2 Delivery O2 Flow Rate FiO2 10/13/21 09:10 98.4 82 18 140/74 (96) 99 Room Air 98.4 (BORIS WOOD APRN) EKG: EKG: [] (BORIS WOOD APRN) Radiology/Procedures: Radiology/Procedures: REASON: Upper abdominal pain PROCEDURE: CHEST AP ONLY EXAM: Chest, single view. HISTORY: Pain. COMPARISON: 09/21/2021 FINDINGS: A frontal view of the chest is obtained. There is stable mild elevation of the right hemidiaphragm with right basilar atelectasis. There is no infiltrate, pleural effusion or pneumothorax. There is a stable cardiac silhouette. IMPRESSION: No acute pulmonary finding. Electronically signed by: Maria Antonia Carrillo MD (10/13/2021 10:06 AM) [id number] REASON: upper abdominal pain, hx SBO with surgical resection PROCEDURE: CT ABD PELV W/ IV CONTRST ONLY CT ABDOMEN+PELVIS W History: Upper abdominal pain. History of small bowel obstruction with resect ion. Comparison: CT abdomen and pelvis 09/17/2021 Technique: CT of the abdomen and pelvis with intravenous contrast. Findings: Linear opacities in lung bases likely represent atelectasis. No pleural or pericardial effusion. Liver is within normal limits. There is a significantly distended gallbladder. No cholelithiasis identified. The pancreas, spleen and adrenal glands are un remarkable. There is a 2.8 cm right renal exophytic cystic lesion which measures greater than simple fluid density, similar to comparison. 9 mm left renal hypodensity too small to characterize likely a cyst. No hydronephrosis or nephrolithiasis. The bladder and prostate are unremarkable. Relatively decompressed stomach. There are couple loops of dilated proximal jejunum in the left upper quadrant. The jejunum is in relatively decompressed extending to the small bowel anastomosis in the left lower abdomen. At this point the small bowel is decompressed and demonstrates significant wall thickening and mesenteric edema with adjacent free fluid. The colon is relatively decompressed. Mild to moderate sigmoid diverticulosis without evidence of diverticulitis. Small free fluid adjacent to the right lower quadrant small bowel loops. Mesenteric edema. Prominent mesenteric lymph nodes measuring up to 7 mm. No intra-abdominal free air. Postsurgical changes at the midline abdomen. There is bilateral sacroiliac ankylosis. Flowing lumbar syndesmophytes. Multilevel facet joint ankylosis. No acute osseous abnormality. Impression: 1. Long segment wall thickening of the distal small bowel with adjacent inflammatory changes in the mesentery, suspect enteritis, possibly ankylosing spondylitis related to inflammatory bowel disease. 2. Dilation of proximal jejunal small bowel loops without definite transition point may be related to peristalsis however postsurgical obstruction is not excluded. 3. Distended gallbladder. Correlate for symptoms of acute cholecystitis. 4. Cystic right renal lesion measuring 2.8 cm with attenuation greater than simple cyst. Recommend right upper quadrant and renal ultrasound for characterization of cystic versus solid nature. 5. Redemonstrated osseous manifestations of ankylosing spondylitis. ------ Exposure: One or more of the following individualized dose reduction techniques were utilized for this examination: 1. Automated exposure control 2. Adjustment of the mA and/or kV according to patient size 3. Use of iterative reconstruction technique. Electronically signed by: Chidi Gonzalez MD (10/13/2021 10:47 AM) [id number] REASON: RUQ PAIN PROCEDURE: ABDOMEN LTD EXAM: Abdomen sonogram. HISTORY: Pain. TECHNIQUE: Sonographic imaging of the abdomen was performed. COMPARISON: CT dated 10/13/2021. FINDINGS: The liver is upper normal in size. No focal hepatic lesion is seen. There is gallbladder sludge. The gallbladder is distended. There is no bladder wall thickening. The common bile duct is normal in caliber. The right kidney is normal in size. There is a 3.2 cm cyst with internal septation within the mid right kidney. The aorta, inferior cava and pancreas are partially obscured due to bowel gas. IMPRESSION: 1. Hydropic gallbladder containing sludge. There is no convincing sonographic evidence of cholecystitis. Correlate with symptomatology. 2. 3.2 cm right renal cyst with septation. Sonographic follow-up in 6 months is recommended. 3. Obscured midline structures due to bowel gas. Electronically signed by: Maria Antonia Carrillo MD (10/13/2021 12:14 PM) [id number] (BORIS WOOD APRN) Course & Med Decision Making: Course & Med Decision Making Pertinent Labs and Imaging studies reviewed. (See chart for details) 56-year-old male, vital signs reviewed, presents emerged from concerning of her abdominal pains. An extensive chart review revealed patient was admitted on 09/17/2021 for small bowel obstruction, bowel resection by surgeon Dr. 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 Bartlett. Physical examination suspicious for constipation pains, however with patient is recent surgical history of small bowel resection 3 weeks ago will order IV saline lock, 1 L normal saline, 4 mg morphine for pain of the 10 pain, CBC, CMP, lipase, urinalysis assay, CT abdomen pelvis with IV contrast. Called and discussed patient case and ED work-up along with chest x-ray and CT abdomen pelvis imaging results with surgeon Dr. Munoz, Dr. Munoz recommends sending patient home with pain medications, strict follow-up in his office next week, does not recommend admission with the information provided by me. Related to distended gallbladder findings, will order sonogram of gallbladder. Sonogram of gallbladder results no specific cholecystitis appreciated, there is gallbladder sludge. Upon reevaluation of the patient, patient reports a 5 out of 10 pain, will order GI cocktail. After period of time, patient reports GI cocktail helped with his pain, rates at a 0 out of 10 unless he pushes on his abdomen, rates pain with palpation a 2 to a 3 out of 10. Patient continues to deny nausea, there has been no vomiting or diarrhea, patient is nontoxic in appearance, and is in no apparent distress. Reviewed patient case with Dr. Walters, Dr. Walters at patient's bedside to interview patient, used machine rug cleaner service phone for Irish interpretation. Discussed with patient discharge home instructions, strict follow-up with Dr. Munoz next week, return to ER precautions and concerns, use of MiraLAX for constipation issues, Maalox for returning abdominal discomfort, patient gave verbal understanding of and is amenable to ED discharge planning. (BORIS WOOD APRN) Course & Med Decision Making I saw and examined this patient, who is a 56-year-old male with recent small bowel resection presenting with abdominal pain and constipation. CT imaging showed an area of thickening in the small bowel with question of early obstruction, as well as a dilated gallbladder. Findings were discussed with surgery attending, Dr. Munoz, and CT imaging results were explicitly relayed. He recommended outpatient follow-up. Ultrasound showed gallbladder was dilated and filled with sludge, but no evidence of cholecystitis sonographically. I considered an admission for observation, but patient states his pain is much improved on reevaluation. In layman's terms with the help of an machine rug cleaner I explained to him that he had multiple concerning findings on his work-up that could predispose him to problems such as a gallbladder infection or bowel obstruction and discussed return precautions. He understands that if he develops vomiting, worsening abdominal pain, focal right upper quadrant abdominal pain, or fever/chills that he needs to immediately return to the emergency department. (LILIANA WALTERS MD) Dragon Disclaimer: Dragrom Disclaimer: This electronic medical record was generated, in whole or in part, using a voice recognition dictation system. (BORIS WOOD APRN) Departure Departure Impression: Primary Impression: Abdominal pain Qualified Codes: R10.9 - Unspecified abdominal pain Disposition: HOME / SELF CARE / HOMELESS Condition: GOOD Referrals: VARINDER MACIAS (PCP) SAIDA MUNOZ MD Patient Instructions: Abdominal Pain Additional Instructions: Hoy lo vieron en el departamento de emergencias por dolor abdominal. La tomografa computarizada de rollins abdomen no mostr hallazgos preocupantes que requieran admisin inmediata al hospital, rollins ecografa de rollins vescula biliar mostr algo de lodo en rollins vescula biliar, sin embargo, no se aprecian clculos ni infeccin. Encontraste un buen alivio con el cctel GI que te dieron. Ron discutimos, habl con rollins cirujano, el Dr. Munoz, por telfono, quien le recomienda que lo chapin en rollins oficina la prxima semana, llame para maki henrik pronto. Ron ya comentamos, use 1 tapn de MiraLAX mezclado con agua todos los cook ron se indica para ayudar con el control del estreimiento, puede usar Maalox de venta ana para el regreso de la indigestin y el malestar abdominal. Ron comentamos, regrese al departamento de emergencias de inmediato si tiene dolor abdominal intenso, vmitos, fiebre u otras inquietudes. Asista a todas tania citas de oncologa, zaki por visitar nuestro Departamento de Emergencias. Fue un placer atenderlo hocait en el departamento de emergencias y le agradecemos que nos haya confiado rollins atencin. Si surge algn problema adicional, no dude en volver a visitarnos. Bobo un seguimiento con rollins proveedor de atencin primaria para que puedan planificar la atencin adicional si es necesario y conocer el problema que tuvo. Si los sntomas empeoran, regrese al Departamento de Yoanna gencias. Cualquier sntoma preocupante que comience, ron dolor en el pecho, falta de aire, debilidad o entumecimiento en un lado del cuerpo, fiebre timi o cualquier otro sntoma preocupante, regresa a la mark de emergencias. You were seen today in the emergency department for abdominal pain. The CT scan of your abdomen did not show concerning findings that would require immediate admission to the hospital, your sonogram of your gallbladder did show some sludge in your gallbladder however there is no stones or infection appreciated. You found good relief with the GI cocktail you were given. As we discussed, I spoke with your surgeon Dr. Munoz on the phone who recommends you see him in his office next week, call for an appointment soon. As we discussed, please use 1 capful of MiraLAX mixed with water every day as directed to help with constipation control, you may use [id number] Maalox for returning abdominal indigestion and discomfort. As we discussed, please return to the emergency department immediately for severe abdominal pain, vomiting, fevers, or other concerns. Please keep all of your oncology appointments, thank you for visiting our Emergency Department. It was a pleasure taking care of you today in the emergency department and we appreciate you trusting us with your care. If any additional problems come up don't hesitate to return to visit us. Please follow up with your primary care provider so they can plan additional care if needed and know about the problem that you had. If symptoms worsen come back to the Emergency Department. Any concerning symptoms that start such as chest pain, shortness of air, weakness or numbness on one side of the body, running high fevers or any other concerning symptoms return to the ER. Scripts Polyethylene Glycol 3350 (MIRALAX) 119 Gm Powder 17 GM PO DAILY for constipation, #527 GM 0 Refills dissolve in water Prov: BORIS WOOD CLOCK SMITH 10/13/21 Mag Hydrox/Al Hydrox/Simeth (MAALOX MAXIMUM STRENGTH SUSP) 355 Ml Oral.susp 355 ML PO PRN QID PRN for indigestion, #1 MISC 0 Refills Take 2 to 4 teaspoons as needed up to 4 times a day for abdominal indigestion and discomfort. Prov: BORIS WOOD CLOCK SMITH 10/13/21 BORIS WOOD CLOCK SMITH Oct 13, 2021 09:28 LILIANA WALTERS MD Oct 13, 2021 18:53
[2021-10-13] MEDS ORDERED: MORPHINE SULFATE 4 MG/ML INJ. IVP ONE ×2 (09:30→11:15)
[2021-10-13] MEDS ORDERED: IOHEXOL 300 MG/ML 100ML VIAL. IV ONE (09:45)
[2021-10-13] MEDS ORDERED: IV NORMAL SALINE 1000ML BAG 1,000 ML IV ONE (09:45)
[2021-10-13] MEDS ORDERED: CONTRAST GIVEN. MC PRN (09:45)
[2021-10-13 09:51] LABS: BASO % 0 % (0-3); EOS % 0 % (0-3); HEMATOCRIT 37.3 % (39.0-53.0); HEMOGLOBIN 11.8 g/dL (13.0-17.5); LYMPH # 0.7 x10^3/uL (1.0-4.8); LYMPH % 6 % (24-48); MEAN CORPUSCULAR HEMOGLOBIN 25 pg (25-35); MEAN CORPUSCULAR HGB CONC 32 g/dL (31-37); MEAN CORPUSCULAR VOLUME 78 fL (79-100); MONO # 0.7 x10^3/uL (0.0-1.1); MONO % 6 % (0-9); NEUT # 9.9 x10^3/uL (1.8-7.7); NEUT % 87 % (31-73); PLATELET COUNT 386 x10^3/uL (140-400); RED BLOOD COUNT 4.76 x10^6/uL (4.30-5.70); RED CELL DISTRIBUTION WIDTH 18.2 % (11.5-14.5); WHITE BLOOD COUNT 11.3 x10^3/uL (4.0-11.0)
[2021-10-13 10:01] LABS: CALCIUM 7.7 mg/dL (8.5-10.1); CREATININE 0.4 mg/dL (0.7-1.3); GFR 223.3; POTASSIUM 3.7 mmol/L (3.5-5.1)
[2021-10-13 10:07] LABS: ALBUMIN 2.1 g/dL (3.4-5.0); ALBUMIN/GLOBULIN RATIO 0.6 (1.0-1.7); TOTAL BILIRUBIN 0.4 mg/dL (0.2-1.0); TOTAL PROTEIN 5.4 g/dL (6.4-8.2)
--- NOTE | 2021-10-13 10:09 | RAD ---
EXAM: Chest, single view. HISTORY: Pain. COMPARISON: 09/21/2021 FINDINGS: A frontal view of the chest is obtained. There is stable mild elevation of the right hemidi aphragm with right basilar atelectasis. There is no infiltrate, pleural effusion or pneumothorax. The re is a stable cardiac silhouette. IMPRESSION: No acute pulmonary finding. Electronically signed by: Maria Antonia Carrillo MD (10/13/2021 10:06 AM) [id number]
--- NOTE | 2021-10-13 10:49 | RAD ---
CT ABDOMEN+PELVIS W History: Upper abdominal pain. History of small bowel obstruction with resection. Comparison: CT abdomen and pelvis 09/17/2021 Technique: CT of the abdomen and pelvis with intravenous contrast. Findings: Linear opacities in lung bases likely represent atelectasis. No pleural or pericardial effusion. Liver is within normal limits. There is a significantly distended gallbladder. No cholelithiasis iden tified. The pancreas, spleen and adrenal glands are unremarkable. There is a 2.8 cm right renal exoph ytic cystic lesion which measures greater than simple fluid density, similar to comparison. 9 mm left renal hypodensity too small to characterize likely a cyst. No hydronephrosis or nephrolithiasis. The bladder and prostate are unremarkable. Relatively decompressed stomach. There are couple loops of dilated proximal jejunum in the left upper quadrant. The jejunum is in relatively decompressed extending to the small bowel anastomosis in the left lower abdomen. At this point the small bowel is decompressed and demonstrates significant wall t hickening and mesenteric edema with adjacent free fluid. The colon is relatively decompressed. Mild t o moderate sigmoid diverticulosis without evidence of diverticulitis. Small free fluid adjacent to the right lower quadrant small bowel loops. Mesenteric edema. Prominent mesenteric lymph nodes measuring up to 7 mm. No intra-abdominal free air. Postsurgical changes at the midline abdomen. There is bilateral sacroiliac ankylosis. Flowing lumbar syndesmophytes. Multilevel facet joint ankylosis. No acute osseous abnormality. Impression: 1. Long segment wall thickening of the distal small bowel with adjacent inflammatory changes in the mesentery, suspect enteritis, possibly ankylosing spondylitis related to inflammatory bowel disease. 2. Dilation of proximal jejunal small bowel loops without definite transition point may be related t o peristalsis however postsurgical obstruction is not excluded. 3. Distended gallbladder. Correlate for symptoms of acute cholecystitis. 4. Cystic right renal lesion measuring 2.8 cm with attenuation greater than simple cyst. Recommend r ight upper quadrant and renal ultrasound for characterization of cystic versus solid nature. 5. Redemonstrated osseous manifestations of ankylosing spondylitis. ------ Exposure: One or more of the following individualized dose reduction techniques were utilized for thi s examination: 1. Automated exposure control 2. Adjustment of the mA and/or kV according to patient size 3. Use of iterative reconstruction technique. Electronically signed by: Chidi Gonzalez MD (10/13/2021 10:47 AM) [id number]
[2021-10-13 10:50] LABS: BILIRUBIN,URINE SMALL (NEG); CLARITY,URINE CLEAR; COLOR,URINE YELLOW; NITRITE,URINE NEGATIVE (NEG); PROTEIN,URINE NEGATIVE (NEG-TRACE); UROBILINOGEN,URINE 0.2 mg/dL (0.2 mg/dL)
[2021-10-13 11:02] LABS: BACTERIA,URINE 0 /HPF (0-FEW); RBC,URINE 0 /HPF (0-2); WBC,URINE 0 /HPF (0-4)
--- NOTE | 2021-10-13 12:16 | RAD ---
EXAM: Abdomen sonogram. HISTORY: Pain. TECHNIQUE: Sonographic imaging of the abdomen was performed. COMPARISON: CT dated 10/13/2021. FINDINGS: The liver is upper normal in size. No focal hepatic lesion is seen. There is gallbladder sl udge. The gallbladder is distended. There is no bladder wall thickening. The common bile duct is norm al in caliber. The right kidney is normal in size. There is a 3.2 cm cyst with internal septation wit hin the mid right kidney. The aorta, inferior cava and pancreas are partially obscured due to bowel g as. IMPRESSION: 1. Hydropic gallbladder containing sludge. There is no convincing sonographic evidence of cholecystit is. Correlate with symptomatology. 2. 3.2 cm right renal cyst with septation. Sonographic follow-up in 6 months is recommended. 3. Obscured midline structures due to bowel gas. Electronically signed by: Maria Antonia Carrillo MD (10/13/2021 12:14 PM) [id number]
[2021-10-13] MEDS ORDERED: LIDO:MAALOX 1:1 20 ML SINGLE DOSE. SWSW ONE (13:00)
[2021-10-13] MEDS ORDERED: MAG355OR12 PO (14:15)
[2021-10-13] MEDS ORDERED: POLY119P4 PO (14:15)
[2021-10-13 14:19] VITALS: BP 117/66
== END 2021-10-13 14:30 | disposition home or self-care (01) ==
LOC: ER 09:06
DX: R10.10 Upper abdominal pain, unspecified (principal); Z86.2 Personal history of diseases of the blood and blood-forming organs and certain disorders involving the immune mechanism
CPT/HCPCS: 36415; 71045; 74177; 76705; 80053; 81001; 83605; 83690; 85025; 96361; 96374; 96376; 99285; J2270; J7030; Q9967

== ENCOUNTER → 2022-02-21 | Outpatient (CLI) | payer OTHER ==
[~2022-02-21] MED LIST changes: +MAG355OR12 PO; +POLY119P4 PO
--- NOTE | 2022-02-21 09:49 | RAD ---
Ultrasound abdomen complete and ultrasound pelvis complete HISTORY: Neuroendocrine tumor Complete Abdominal Ultrasound: Technique: Sonographic examination of the abdomen was performed and multiple static images were obta ined. COMPARISON: October 13, 2021 Findings: Liver: The majority is visualized and appears homogeneous. Common bile duct: Dilated to 8 mm in diameter. Gallbladder: Contracted and sludge-filled. Portal vein: Appears normal. Pancreas: is not well visualized due to overlying bowel gas. Right kidney: Seen without hydronephrosis and measures 12 cm in length. Left kidney seen without hydronephrosis and measures 14 cm in length. There is bilateral renal cysts. There is dilated loops of fluid-filled bowel. Spleen: Not enlarged. Impression: 1. There is sludge in the gallbladder however the gallbladder is contracted and not well evaluated. T his is likely not acute cholecystitis. 2. Dilated common bile duct not present previously. There is no stone seen however a distal common bi le stone is possible. End of impression Ultrasound pelvis complete: Sonographic examination of falciform or transabdominal technique. Multiple static images were obtaine d. FINDINGS: The urinary bladder appears normal. The prostate is moderately enlarged measuring 5.5 x 4.7 x 5.3 cm. There is no free fluid. This multiple distended fluid-filled loops of bowel. IMPRESSION: 1. Moderately large prostate. 2. Numerous fluid-filled loops of bowel likely an ileus. Clinical correlation is suggested. Electronically signed by: Navdeep Suh III, MD (02/21/2022 9:46 AM) [facility]
== END ==
LOC: US 06:27
PROVIDERS: ATTEND Family Medicine
DX: N40.0 Benign prostatic hyperplasia without lower urinary tract symptoms (principal); N28.1 Cyst of kidney, acquired; K82.8 Other specified diseases of gallbladder; D3A.8 Other benign neuroendocrine tumors
CPT/HCPCS: 76700; 76856

== ENCOUNTER → 2022-03-10 | Outpatient (CLI) | payer OTHER ==
--- NOTE | 2022-03-10 09:27 | KCIC ---
CT CHEST_ABDOMEN_ AND PELVIS WITHOUT CONTRAST History: Neuroendocrine tumor. Small bowel resection. Bloating, nausea. Comparison: CT abdomen and pelvis 10/13/2021. Ultrasound 02/21/2022. Technique: CT of the chest, abdomen and pelvis with intravenous contrast. Findings: Chest: Pulmonary arteries: Normal caliber. Aorta and great vessels: No aneurysm of the aortic arch or thoracic aorta is seen. Minimal atheroscle rotic calcification. Heart: Heart size is normal. Trace pericardial fluid. No coronary artery calcification. Thyroid: Peripherally calcified 1 cm left thyroid lobe nodule. Mediastinum and molly: No mediastinal masses or adenopathy is seen. Esophagus: The visualized esophagus is normal. Airways, Lungs, Pleura: Central airways are patent. There are small left greater than right pleural e ffusions and adjacent consolidations likely compressive atelectasis. Soft tissue and osseous: Syndesmophytes throughout the thoracic spine. Abdomen/Pelvis: General abdomen: Small pelvic free fluid. No intra-abdominal free air. Liver : Heterogeneous hepatic attenuation for which evaluation is limited by artifact from streak art ifact from arms down imaging. No discrete hepatic mass identified. Gallbladder/Biliary Tree: Decompressed gallbladder. No intrahepatic or extrahepatic biliary ductal di latation. Pancreas: Normal. Spleen: Normal in size and attenuation. Adrenal glands: Normal. Kidneys: No hydronephrosis or hydroureter. Bilateral renal cysts redemonstrated. Gastrointestinal: Partially decompressed stomach. Proximal small bowel bowel distention measuring up to 6 cm diameter extending through a patent small bowel anastomosis in the pelvis. Beyond the small b owel anastomosis there are thickened loops of ileum with comparatively narrow lumen. Findings are sim ilar to however significantly progressive from September 2021 comparison. No significant colonic wall thickening. There is sigmoid diverticulosis which is adjacent to mesenteric inflammatory changes geronimo emre this is favored to originate from the small bowel rather than the sigmoid colon. Lymph nodes: Diffuse stranding of the small bowel mesentery without discrete adenopathy. Vessels: Unremarkable. Pelvic Organs: Unremarkable reproductive organs. No pelvic masses. The bladder is unremarkable. Soft tissues: Healed midline abdominal wall incision. Bones: Bilateral sacroiliac ankylosis and joy lumbar spine ankylosis. Impression: 1. Wall thickening and adjacent inflammatory changes in the distal small bowel with distention of th e proximal small bowel concerning for early or partial obstruction. Wall thickening suggests etiology perhaps related to inflammatory bowel disease in the setting of ankylosing spondylitis. Additionally provided history of mesenteric neuroendocrine tumor, recurrent/residual tumor is within the differen tial. Diffuse mesenteric stranding and increased attenuation may be due to mass infiltration rather t pulliam edema. Consider nuclear medicine exam for neuroendocrine tumor evaluation such as octreoscan or n euroendocrine PET. Finally, a mechanical obstruction from adhesions is possible the setting of prior bowel surgery however thought to be less likely due to prominent wall thickening of the small bowel. 2. Left greater than right pleural effusions with adjacent suspected compressive atelectasis and sma ll pelvic free fluid, both increased from comparison. 3. Sigmoid diverticulosis. 4. Ankylosing spondylitis. ------ Exposure: One or more of the following individualized dose reduction techniques were utilized for thi s examination: 1. Automated exposure control 2. Adjustment of the mA and/or kV according to patient size 3. Use of iterative reconstruction technique. Electronically signed by: Chidi Gonzalez MD (03/10/2022 9:25 AM) [id number]
== END ==
LOC: KCIC CT 08:12
PROVIDERS: ATTEND Family Medicine
DX: D3A.8 Other benign neuroendocrine tumors (principal); J90 Pleural effusion, not elsewhere classified; M45.9 Ankylosing spondylitis of unspecified sites in spine; K57.30 Diverticulosis of large intestine without perforation or abscess without bleeding; I70.0 Atherosclerosis of aorta; E04.1 Nontoxic single thyroid nodule
CPT/HCPCS: 71250; 74176

== ENCOUNTER 2022-03-15 11:42 | Inpatient (IN) | payer OTHER ==
[~2022-03-15] VITALS: Ht 177.8 cm; Wt 71.5 kg
[2022-03-15] MEDS ORDERED: diphenhydrAMINE 50 MG/ML VIAL IVP PRN (14:15)
[2022-03-15] MEDS ORDERED: ZOLPIDEM 5 MG TABLET. PO PRN (14:15)
[2022-03-15] MEDS ORDERED: DOCUSATE SODIUM 100 MG CAPSULE. PO PRN (14:15)
[2022-03-15] MEDS ORDERED: MORPHINE SULFATE 2 MG/ML INJ. IVP PRN (14:15)
[2022-03-15] MEDS ORDERED: ONDANSETRON PF 4 MG/2 ML VIAL. IVP PRN (14:15)
[2022-03-15] MEDS ORDERED: ACETAMINOPHEN 325 MG TABLET. PO PRN (14:15)
[2022-03-15] MEDS ORDERED: PROCHLORPERAZINE 10 MG/2 ML VIAL. IV PRN (14:15)
[2022-03-15] MEDS ORDERED: LORazepam 0.5 MG TABLET PO PRN (14:15)
[2022-03-15] MEDS ORDERED: DEXTROSE 50% 25 GM / 50ML DISP.SYRIN. IV PRN (14:15)
[2022-03-15] MEDS ORDERED: MORPHINE SULFATE 2 MG/ML INJ. IV PRN (14:15)
[2022-03-15] MEDS ORDERED: SENNOSIDES 8.6 MG TABLET PO PRN (14:15)
[2022-03-15] MEDS ORDERED: diphenhydrAMINE HCL 25 MG CAPSULE PO PRN ×2 (14:15)
--- NOTE | 2022-03-15 14:15 | PDOC1 ---
History and Physical Date of Service: DOS: DATE: 03/15/22 TIME: 14:14 Chief Complaint: Chief Complain: Abdominal pain History of Present Illness: HPI: 55-year-old male with past medical history of neuroendocrine resection in August from an exploratory laparotomy with small bowel resection who comes in with worsening abdominal pain ever since surgery in August. Patient describes his pain is gotten to the point where he sees his stomach distend and also make large gurgling noises audible without a stethoscope. Patient does endorse mild nausea but no active vomiting. He does have very loose bowel movements at least 2-3 times per day. Patient has not started any chemoradiation treatments. He denies any fevers, chest pain, hematuria, bloody stools or palpitations or syn cope. No loss of appetite. He does endorse weight loss of about 40 pounds since the time of his surgery. Patient was sent as a direct admit from his PCP Dr. Reed after a CT abdomen was done showing small bowel obstruction. Patient is admitted for further care and further evaluation by general surgery and oncology Of note, Surgical pathology showed: - Well-differentiated neuroendocrine tumor, grade I, invasive, multifocal, ranging from 0.4 up to 3.9 cm in greatest dimension, with tumor involvement of mucosa, submucosa, and muscularis propria with several foci of tumor invasion through muscularis propria into subserosa, and with several foci of tumor associated small bowel constriction and stenosis. - Metastatic neuroendocrine tumor, mesentery, forming a few mesenteric masses, the largest measuring up to 4.5 cm in greatest dimention. - Metastatic neuroendocrine tumor involving 12 of 25 mesenteric lymph nodes. - Focal lymphovascular tumor invasion identified. - Focal perineural tumor invasion identified within mesentery. - Proximal and distal small bowel margins of resection negative for tumor. - Metastatic neuroendocrine tumor within lymph nodes is focally approximately 1 mm from the mesenteric margin of resection. - Acute and chronic ischemic changes of small bowel mucosa, focal. Low-grade disease was noted as evidenced by Ki-67 of 3% Past Medical/Surgical History: PMH/PSH: Past medical history of atrial fibrillation Past surgical history of small bowel resection and neuroendocrine tumor Allergies: Allergies: Coded Allergies: No Known Drug Allergies (Unverified , 05/29/17) Family History: Family History: Reviewed with no relative findings in the chart Social History: Social History: Denies alcohol, tobacco or drug abuse. Current Medications: Current Medications Active Scripts Active Miralax (Polyethylene Glycol 3350) 119 Gm Powder 17 Gm PO DAILY dissolve in water Maalox Maximum Strength Susp (Mag Hydrox/Al Hydrox/Simeth) 355 Ml Oral.susp 355 Ml PO PRN QID PRN Take 2 to 4 teaspoons as needed up to 4 times a day for abdominal indigestion and discomfort. Aspirin Ec (Aspirin) 325 Mg Tablet.dr 1 Tab PO DAILY 90 Days Metoprolol Tartrate 25 Mg Tablet 25 Mg PO BID 90 Days ROS: Review of Systems Review of System REVIEW OF SYSTEMS: GENERAL: Denies weakness SKIN: No bruising, hair changes or rashes. EYES: No blurred, double or loss of vision. NOSE AND THROAT: No history of nosebleeds, hoarseness or sore throat. HEART: No history of palpitations, chest pain or shortness of breath on exertion. LUNGS: Denies cough, hemoptysis, wheezing or shortness of breath. GASTROINTESTINAL: Positive abdominal pain and diarrhea and abdominal distention GENITOURINARY: No history of frequency, urgency, hesitancy or nocturia. NEUROLOGIC: Denies history of numbness, tingling, or tremor. PSYCHIATRIC: No history of panic, anxiety or depression. ENDOCRINE: No history of heat or cold intolerance, polyuria or polydipsia. EXTREMITIES: Denies joint pain, pain on walking or stiffness. Physical Exam: Physcial Exam: General: Well developed, well nourished, no acute distress, well appearing HEENT: Pupils equally round and reactive to light, EOMI, no discharge, normal conjunctiva Neck: Supple, no nuchal rigidity, no JVD, trachea midline, no tenderness Cardiac: RRR, no murmurs, no gallops, no rubs Chest/Lungs: CTAB, no wheeze, no rhonchi, no crackles Abdomen: soft, non-distended, no guarding, no peritoneal signs, non-tender. Hyperactive bowel sounds (Borborygmi) Back: No tenderness Extremities: no edema, pulses intact, non-tender,capillary refill <3 sec bilateral upper and lower extremities, Neuro: Alert and oriented x 4, no focal deficits, normal speech Labs: Labs: Pending admission labs Images: Images Pending CT abdomen pelvis image from outside facility Assessment/Plan Assessment/Plan Acute abdominal pain secondary to partial SBO History of neuroendocrine small bowel tumor History of exploratory laparotomy with small bowel resection and tumor resection History of atrial fibrillation Admit to hospitalist service for further management Oncology consult General surgery consult NPO Continue IV fluids Serial abdominal exams Baseline admission labs Telemetry if patient has symptomatic palpitations Metoprolol as needed for target heart rate less than 110 for his history of atr ial fibrillation Lovenox for DVT prophylaxis Protonix IV GI prophylaxis NPO CODE STATUS full Discussed with RN and SW Disposition inpatient management as above DPOA: Justifications for Admission Other Justification MARIFER CUEVAS MD March 15, 2022 14:15
[2022-03-15] MEDS ORDERED: METOPROLOL IV PUSH 5 MG/5 ML VIAL. IVP PRN (14:30)
[2022-03-15 14:49] LABS: BASO % 1 % (0-3); EOS # 0.1 x10^3/uL (0.0-0.7); EOS % 1 % (0-3); HEMATOCRIT 35.8 % (39.0-53.0); HEMOGLOBIN 11.7 g/dL (13.0-17.5); LYMPH # 1.3 x10^3/uL (1.0-4.8); LYMPH % 24 % (24-48); MEAN CORPUSCULAR HEMOGLOBIN 28 pg (25-35); MEAN CORPUSCULAR HGB CONC 33 g/dL (31-37); MEAN CORPUSCULAR VOLUME 86 fL (79-100); MONO # 0.7 x10^3/uL (0.0-1.1); MONO % 13 % (0-9); NEUT # 3.4 x10^3/uL (1.8-7.7); NEUT % 62 % (31-73); PLATELET COUNT 388 x10^3/uL (140-400); RED BLOOD COUNT 4.14 x10^6/uL (4.30-5.70); RED CELL DISTRIBUTION WIDTH 21.2 % (11.5-14.5); WHITE BLOOD COUNT 5.5 x10^3/uL (4.0-11.0)
[2022-03-15 14:59] LABS: CALCIUM 6.9 mg/dL (8.5-10.1); CREATININE 0.6 mg/dL (0.7-1.3); GFR 139.9; POTASSIUM 3.6 mmol/L (3.5-5.1)
[2022-03-15 15:00] VITALS: BP 125/68
[2022-03-15 15:28] LABS: ANISOCYTOSIS MOD; PLT ESTIMATE ADEQUATE (ADEQUATE)
[2022-03-15 15:29] LABS: POIKILOCYTOSIS SLIGHT
[2022-03-15] MEDS: PANTOPRAZOLE IV PUSH 40 MG VIAL. IVP SCH (16:28)
[2022-03-15] MEDS: IV NORMAL SALINE 1000ML BAG 1,000 ML IV SCH (16:28)
[2022-03-15] MEDS ORDERED: DICY10CA3 PO (18:55)
[2022-03-15] MEDS ORDERED: METO5TAB55 PO (18:56)
[2022-03-15 19:00] VITALS: BP 104/60
[2022-03-15] MEDS: ENOXAPARIN 40 MG/0.4 ML SYRINGE. SQ SCH (20:25)
[2022-03-15 23:28] VITALS: BP 100/56
[2022-03-16] MEDS: IV NORMAL SALINE 1000ML BAG 1,000 ML IV SCH ×3 (01:00→21:59)
[2022-03-16 03:00] VITALS: BP 102/60
[2022-03-16 06:41] LABS: BASO % 1 % (0-3); EOS # 0.1 x10^3/uL (0.0-0.7); EOS % 2 % (0-3); HEMOGLOBIN 11.3 g/dL (13.0-17.5); LYMPH # 1.2 x10^3/uL (1.0-4.8); LYMPH % 25 % (24-48); MEAN CORPUSCULAR HEMOGLOBIN 29 pg (25-35); MEAN CORPUSCULAR HGB CONC 33 g/dL (31-37); MEAN CORPUSCULAR VOLUME 87 fL (79-100); MONO # 0.6 x10^3/uL (0.0-1.1); MONO % 12 % (0-9); NEUT % 61 % (31-73); PLATELET COUNT 342 x10^3/uL (140-400); RED CELL DISTRIBUTION WIDTH 20.6 % (11.5-14.5)
[2022-03-16 07:00] VITALS: BP 95/59
[2022-03-16 07:05] LABS: CALCIUM 6.9 mg/dL (8.5-10.1); CREATININE 0.7 mg/dL (0.7-1.3); GFR 117.1; MAGNESIUM 1.9 mg/dL (1.8-2.4); PHOSPHORUS 2.6 mg/dL (2.6-4.7); POTASSIUM 3.8 mmol/L (3.5-5.1)
--- NOTE | 2022-03-16 07:50 | PDOC2 ---
CONSULT Date of Consult Date of Consult DATE: 03/16/22 TIME: 07:46 Reason for Consult Reason for Consult: Abdominal pain Referring Physician Referring Physician: Moise Identification/Chief Complaint Chief Complaint Abdominal pain with difficulty eating Source Source: Chart review, Patient History of Present Illness Reason for Visit: 56-year-old male had exploratory laparotomy for small bowel obstruction secondary to her neuroendocrine tumor. Is been closely monitored no adjuvant therapies. Subsequently has developed crampy abdominal pain with eating. Recently had a CT scan done which shows thickening of the distal small bowel concerning for inflammatory bowel disease versus recurrent tumor causing partial small bowel obstruction. He is currently resting comfortably in bed denies any nausea or vomiting pain is better if he does not eat Past Medical History Cardiovascular: No pertinent hx Pulmonary: No pertinent hx GI: GI bleed, Peptic Ulcer disease Heme/Onc: No pertinent hx Hepatobiliary: No pertinent hx Psych: No pertinent hx Rheumatologic: No pertinent hx Infectious disease: No pertinent hx Renal/: No pertinent hx Endocrine: No pertinent hx Past Surgical History Past Surgical History: No pertinent history Family History Family History: Other Social History ALCOHOL: other Drugs: None Lives: with Family Current Medications Current Medications Current Medications Sennosides (Senna) 17.2 mg PRN BID PRN PO CONSTIPATION; Start 03/15/22 at 14:15 Docusate Sodium (Colace) 100 mg PRN DAILY PRN PO HARD STOOLS; Start 03/15/22 at 14:15 Ondansetron HCl (Zofran) 4 mg PRN Q6HRS PRN IVP NAUSEA/VOMITING, 1st CHOICE; Start 03/15/22 at 14:15 Dextrose (Dextrose 50%-Water Syringe) 12.5 gm PRN Q15MIN PRN IV SEE COMMENTS; Start 03/15/22 at 14:15 Sodium Chloride 1,000 ml @ 100 mls/hr Q10H IV Last administered on 03/16/22at 01:00; Start 03/15/22 at 15:00 Acetaminophen (Tylenol) 650 mg PRN Q4HRS PRN PO TEMP OVER 100.4F OR MILD PAIN; Start 03/15/22 at 14:15 Lorazepam (Ativan) 0.5 mg PRN Q6HRS PRN PO ANXIETY / AGITATION; Start 03/15/22 at 14:15 Lorazepam (Ativan Inj) 0.25 mg PRN Q4HRS PRN IV ANXIETY / AGITATION; Start 03/15/22 at 14:15 Enoxaparin Sodium (Lovenox 40mg Syringe) 40 mg Q24H SQ Last administered on 03/15/22at 20:25; Start 03/15/22 at 21:00 Pantoprazole Sodium (PROTONIX VIAL for IV PUSH) 40 mg DAILYAC IVP Last administered on 03/15/22at 16:28; Start 03/15/22 at 15:00 Morphine Sulfate (Morphine Sulfate) 1 mg PRN Q1HR PRN IV PAIN; Start 03/15/22 at 14:15 Morphine Sulfate (Morphine Sulfate) 2 mg PRN Q2HR PRN IVP SEVERE PAIN 7-10; Start 03/15/22 at 14:15; Stop 03/16/22 at 14:14 Prochlorperazine Edisylate (Compazine) 10 mg PRN Q6HRS PRN IV NAUSEA/VOMITING, 2nd CHOICE; Start 03/15/22 at 14:15 Diphenhydramine HCl (Benadryl) 25 mg PRN Q6HRS PRN IVP ITCHING; Start 03/15/22 at 14:15 Diphenhydramine HCl (Benadryl) 25 mg PRN Q6HRS PRN PO ITCHING; Start 03/15/22 at 14:15 Diphenhydramine HCl (Benadryl) 25 mg PRN QHS PRN PO INSOMNIA, 1st CHOICE Last administered on 03/15/22at 20:25; Start 03/15/22 at 14:15 Zolpidem Tartrate (Ambien) 2.5 mg PRN QHS PRN PO INSOMNIA, 2nd CHOICE; Start 03/15/22 at 14:15 Metoprolol Tartrate (Lopressor Vial) 5 mg PRN Q5MIN PRN IVP TACHYCARDIA; Start 03/15/22 at 14:30 Active Scripts Active Reported Reglan (Metoclopramide Hcl) 5 Mg Tablet 1 Tab PO TIDAC 20 Days 1 hour prior to procedure Dicyclomine Hcl 10 Mg Capsule 1 Cap PO TIDWMEALS Allergies Allergies: Coded Allergies: No Known Drug Allergies (Unverified , 05/29/17) ROS General: No: Chills, Night Sweats, Fatigue, Malaise, Appetite, Other PSYCHOLOGICAL ROS: No: Anxiety, Behavioral Disorder, Concentration difficultie, Decreased libido, Depression, Disorientation, Hallucinations, Hostility, Irritablity, Memory difficulties, Mood Swings, Obsessive thoughts, Physical abuse, Sexual abuse, Sleep disturbances, Suicidal ideation, Other Eyes: No Blurry vision, No Decreased vision, No Double vision, No Dry eyes, No Excessive tearing, No Eye Pain, No Itchy Eyes, No Loss of vision, No Photophobia, No Scotomata, No Uses contacts, No Uses glasses, No Other HEENT: No: Heacaches, Visual Changes, Hearing change, Nasal congestion, Nasal discharge, Oral lesions, Sinus pain, Sore Throat, Epistaxis, Sneezing, Snoring, Tinnitus, Vertigo, Vocal changes, Other ALLERGY AND IMMUNOLOGY: No: Hives, Insect Bite Sensitivity, Itchy/Watery Eyes, Nasal Congestion, Post Nasal Drip, Seasonal Allergies, Other Hematological and Lymphatic: No: Bleeding Problems, Blood Clots, Blood Transfus ions, Brusing, Night Sweats, Pallor, Swollen Lymph Nodes, Other ENDOCRINE: No: Breast Changes, Galactorrhea, Hair Pattern Changes, Hot Flashes, Malaise/lethargy, Mood Swings, Palpitations, Polydipsia/polyuria, Skin Changes, Temperature Intolerance, Unexpected Weight Changes, Other Respiratory: No: Cough, Hemoptysis, Orthopnea, Pleuritic Pain, Shortness of breath, SOB with excertion, Sputum Changes, Stridor, Tachypnea, Wheezing, Other Cardiovascular: No Chest Pain, No Palpitations, No Orthopnea, No Paroxysmal Noc. Dyspnea, No Edema, No Lt Headedness, No Other Gastrointestinal: Yes Nausea, Yes Abdominal Pain Genitourinary: No Dysuria, No Frequency, No Incontinence, No Hematuria, No Retention, No Discharge, No Urgency, No Pain, No Flank Pain, No Other, No , No , No , No , No , No , No Musculoskeletal: No Gait Disturbance, No Joint Pain, No Joint Stiffness, No J oint Swelling, No Muscle Pain, No Muscular Weakness, No Pain In:, No Swelling In:, No Other Skin: No Dry Skin, No Eczema, No Hair Changes, No Lumps, No Mole Changes, No Mottling, No Nail Changes, No Pruritus, No Rash, No Skin Lesion Changes, No Other, No Acne Physical Exam General: Alert, Oriented X3, Cooperative, mild distress HEENT: Atraumatic, EOMI Lungs: Clear to auscultation, Normal air movement Heart: Regular rate, No murmurs Abdomen: Normal bowel sounds, Soft, Other (Mildly tender to palpation no peritoneal signs) Extremities: No edema Skin: No significant lesion Neuro: Normal speech Psych/Mental Status: Mental status NL Vitals VITALS Vital Signs Date Time Temp Pulse Resp B/P (MAP) Pulse Ox O2 Delivery O2 Flow Rate FiO2 03/16/22 03:00 98.4 62 18 102/60 (74) 98 Room Air 98.4 Labs Labs Laboratory Tests Test 03/15/22 14:35 03/16/22 06:00 White Blood Count 5.5 x10^3/uL (4.0-11.0) 5.0 x10^3/uL (4.0-11.0) Red Blood Count 4.14 x10^6/uL (4.30-5.70) 3.90 x10^6/uL (4.30-5.70) Hemoglobin 11.7 g/dL (13.0-17.5) 11.3 g/dL (13.0-17.5) Hematocrit 35.8 % (39.0-53.0) 34.0 % (39.0-53.0) Mean Corpuscular Volume 86 fL (79-100) 87 fL (79-100) Mean Corpuscular Hemoglobin 28 pg (25-35) 29 pg (25-35) Mean Corpuscular Hemoglobin Concent 33 g/dL (31-37) 33 g/dL (31-37) Red Cell Distribution Width 21.2 % (11.5-14.5) 20.6 % (11.5-14.5) Platelet Count 388 x10^3/uL (140-400) 342 x10^3/uL (140-400) Neutrophils (%) (Auto) 62 % (31-73) 61 % (31-73) Lymphocytes (%) (Auto) 24 % (24-48) 25 % (24-48) Monocytes (%) (Auto) 13 % (0-9) 12 % (0-9) Eosinophils (%) (Auto) 1 % (0-3) 2 % (0-3) Basophils (%) (Auto) 1 % (0-3) 1 % (0-3) Neutrophils # (Auto) 3.4 x10^3/uL (1.8-7.7) 3.0 x10^3/uL (1.8-7.7) Lymphocytes # (Auto) 1.3 x10^3/uL (1.0-4.8) 1.2 x10^3/uL (1.0-4.8) Monocytes # (Auto) 0.7 x10^3/uL (0.0-1.1) 0.6 x10^3/uL (0.0-1.1) Eosinophils # (Auto) 0.1 x10^3/uL (0.0-0.7) 0.1 x10^3/uL (0.0-0.7) Basophils # (Auto) 0.0 x10^3/uL (0.0-0.2) 0.0 x10^3/uL (0.0-0.2) Platelet Estimate Adequate (ADEQUATE) Poikilocytosis Slight Anisocytosis Mod Sodium Level 141 mmol/L (136-145) 143 mmol/L (136-145) Potassium Level 3.6 mmol/L (3.5-5.1) 3.8 mmol/L (3.5-5.1) Chloride Level 109 mmol/L (98-107) 112 mmol/L (98-107) Carbon Dioxide Level 26 mmol/L (21-32) 24 mmol/L (21-32) Anion Gap 6 (6-14) 7 (6-14) Blood Urea Nitrogen 14 mg/dL (8-26) 12 mg/dL (8-26) Creatinine 0.6 mg/dL (0.7-1.3) 0.7 mg/dL (0.7-1.3) Estimated GFR (Cockcroft-Gault) 139.9 117.1 Glucose Level 82 mg/dL (70-99) 72 mg/dL (70-99) Calcium Level 6.9 mg/dL (8.5-10.1) 6.9 mg/dL (8.5-10.1) Magnesium Level 2.0 mg/dL (1.8-2.4) 1.9 mg/dL (1.8-2.4) Phosphorus Level 2.6 mg/dL (2.6-4.7) Laboratory Tests Test 03/15/22 14:35 03/16/22 06:00 White Blood Count 5.5 x10^3/uL (4.0-11.0) 5.0 x10^3/uL (4.0-11.0) Red Blood Count 4.14 x10^6/uL (4.30-5.70) 3.90 x10^6/uL (4.30-5.70) Hemoglobin 11.7 g/dL (13.0-17.5) 11.3 g/dL (13.0-17.5) Hematocrit 35.8 % (39.0-53.0) 34.0 % (39.0-53.0) Mean Corpuscular Volume 86 fL (79-100) 87 fL (79-100) Mean Corpuscular Hemoglobin 28 pg (25-35) 29 pg (25-35) Mean Corpuscular Hemoglobin Concent 33 g/dL (31-37) 33 g/dL (31-37) Red Cell Distribution Width 21.2 % (11.5-14.5) 20.6 % (11.5-14.5) Platelet Count 388 x10^3/uL (140-400) 342 x10^3/uL (140-400) Neutrophils (%) (Auto) 62 % (31-73) 61 % (31-73) Lymphocytes (%) (Auto) 24 % (24-48) 25 % (24-48) Monocytes (%) (Auto) 13 % (0-9) 12 % (0-9) Eosinophils (%) (Auto) 1 % (0-3) 2 % (0-3) Basophils (%) (Auto) 1 % (0-3) 1 % (0-3) Neutrophils # (Auto) 3.4 x10^3/uL (1.8-7.7) 3.0 x10^3/uL (1.8-7.7) Lymphocytes # (Auto) 1.3 x10^3/uL (1.0-4.8) 1.2 x10^3/uL (1.0-4.8) Monocytes # (Auto) 0.7 x10^3/uL (0.0-1.1) 0.6 x10^3/uL (0.0-1.1) Eosinophils # (Auto) 0.1 x10^3/uL (0.0-0.7) 0.1 x10^3/uL (0.0-0.7) Basophils # (Auto) 0.0 x10^3/uL (0.0-0.2) 0.0 x10^3/uL (0.0-0.2) Platelet Estimate Adequate (ADEQUATE) Poikilocytosis Slight Anisocytosis Mod Sodium Level 141 mmol/L (136-145) 143 mmol/L (136-145) Potassium Level 3.6 mmol/L (3.5-5.1) 3.8 mmol/L (3.5-5.1) Chloride Level 109 mmol/L (98-107) 112 mmol/L (98-107) Carbon Dioxide Level 26 mmol/L (21-32) 24 mmol/L (21-32) Anion Gap 6 (6-14) 7 (6-14) Blood Urea Nitrogen 14 mg/dL (8-26) 12 mg/dL (8-26) Creatinine 0.6 mg/dL (0.7-1.3) 0.7 mg/dL (0.7-1.3) Estimated GFR (Cockcroft-Gault) 139.9 117.1 Glucose Level 82 mg/dL (70-99) 72 mg/dL (70-99) Calcium Level 6.9 mg/dL (8.5-10.1) 6.9 mg/dL (8.5-10.1) Magnesium Level 2.0 mg/dL (1.8-2.4) 1.9 mg/dL (1.8-2.4) Phosphorus Level 2.6 mg/dL (2.6-4.7) Assessment/Plan Assessment/Plan Partial small bowel obstruction possibly secondary to recurrent tumor versus ankylosing spondylolysis inflammatory bowel disease versus adhesions. Due to patient's weight loss would recommend starting TPN through PICC line Consult oncology for evaluation of recurrent tumor Difficult problem if recurrent tumor with secondary surgery for obstruction may be left with no choice if it does not improve SAIDA CARL MD March 16, 2022 07:50
[2022-03-16] MEDS ORDERED: TPN PER PHARMACY MC PRN (10:00)
[2022-03-16] MEDS: PANTOPRAZOLE IV PUSH 40 MG VIAL. IVP SCH (10:18)
[2022-03-16 11:00] VITALS: BP 99/56
--- NOTE | 2022-03-16 11:35 | PDOC ---
[facility] PROGRESS NOTE Date of Service DOS: DATE: 03/16/22 TIME: 11:30 Chief Complaint Chief Complaint Assessment/Plan Acute abdominal pain secondary to partial SBO, possible adhesions versus tumor recurrence History of neuroendocrine small bowel tumor History of exploratory laparotomy with small bowel resection and tumor resection History of atrial fibrillation Weight loss with severe protein malnutrition PICC line placement and will start on TPN for supplementary nutrition. Oncology consult for possible tumor recurrence General surgery consult NPO Continue IV fluids Serial abdominal exams Baseline admission labs Telemetry if patient has symptomatic palpitations Metoprolol as needed for target heart rate less than 110 for his history of atrial fibrillation Lovenox for DVT prophylaxis Protonix IV GI prophylaxis NPO CODE STATUS full Discussed with RN and SW Disposition inpatient management as above DPOA: History of Present Illness History of Present Illness 55-year-old male with past medical history of neuroendocrine resection in August from an exploratory laparotomy with small bowel resection who comes in with worsening abdominal pain ever since surgery in August. Patient describes his pain is gotten to the point where he sees his stomach distend and also make large gurgling noises audible without a stethoscope. Patient does endorse mild nausea but no active vomiting. He does have very loose bowel movements at least 2-3 times per day. Patient has not started any chemoradiation treatments. He denies any fevers, chest pain, hematuria, bloody stools or palpitations or syncope. No loss of appetite. He does endorse weight loss of about 40 pounds since the time of his surgery. Patient was sent as a direct admit from his PCP Dr. Reed after a CT abdomen was done showing small bowel obstruction. Patient is admitted for further care and further evaluation by general surgery and oncology 03/16/2022 No acute events overnight. Patient seen examined bedside. Still having abdominal pain and cramps. No bowel movements. Pending definitive plan from surgery and oncology. Patient's chart, labs, images were reviewed and discussed with RN Vitals/I&O Vitals/I&O: Vital Signs Date Time Temp Pulse Resp B/P (MAP) Pulse Ox O2 Delivery O2 Flow Rate FiO2 03/16/22 07:00 97.9 70 16 95/59 (71) 97 Room Air 97.9 Physical Exam General: Alert, Oriented X3, Cooperative, mild distress Heart: Regular rate, No murmurs Lungs: Clear Abdomen: Normal bowel sounds, Soft, Other (Mildly tender to palpation no peritoneal signs) Extremities: No edema Skin: No significant lesion Labs Labs: Laboratory Tests Test 03/15/22 14:35 03/16/22 06:00 White Blood Count 5.5 x10^3/uL (4.0-11.0) 5.0 x10^3/uL (4.0-11.0) Red Blood Count 4.14 x10^6/uL (4.30-5.70) 3.90 x10^6/uL (4.30-5.70) Hemoglobin 11.7 g/dL (13.0-17.5) 11.3 g/dL (13.0-17.5) Hematocrit 35.8 % (39.0-53.0) 34.0 % (39.0-53.0) Mean Corpuscular Volume 86 fL (79-100) 87 fL (79-100) Mean Corpuscular Hemoglobin 28 pg (25-35) 29 pg (25-35) Mean Corpuscular Hemoglobin Concent 33 g/dL (31-37) 33 g/dL (31-37) Red Cell Distribution Width 21.2 % (11.5-14.5) 20.6 % (11.5-14.5) Platelet Count 388 x10^3/uL (140-400) 342 x10^3/uL (140-400) Neutrophils (%) (Auto) 62 % (31-73) 61 % (31-73) Lymphocytes (%) (Auto) 24 % (24-48) 25 % (24-48) Monocytes (%) (Auto) 13 % (0-9) 12 % (0-9) Eosinophils (%) (Auto) 1 % (0-3) 2 % (0-3) Basophils (%) (Auto) 1 % (0-3) 1 % (0-3) Neutrophils # (Auto) 3.4 x10^3/uL (1.8-7.7) 3.0 x10^3/uL (1.8-7.7) Lymphocytes # (Auto) 1.3 x10^3/uL (1.0-4.8) 1.2 x10^3/uL (1.0-4.8) Monocytes # (Auto) 0.7 x10^3/uL (0.0-1.1) 0.6 x10^3/uL (0.0-1.1) Eosinophils # (Auto) 0.1 x10^3/uL (0.0-0.7) 0.1 x10^3/uL (0.0-0.7) Basophils # (Auto) 0.0 x10^3/uL (0.0-0.2) 0.0 x10^3/uL (0.0-0.2) Platelet Estimate Adequate (ADEQUATE) Poikilocytosis Slight Anisocytosis Mod Sodium Level 141 mmol/L (136-145) 143 mmol/L (136-145) Potassium Level 3.6 mmol/L (3.5-5.1) 3.8 mmol/L (3.5-5.1) Chloride Level 109 mmol/L (98-107) 112 mmol/L (98-107) Carbon Dioxide Level 26 mmol/L (21-32) 24 mmol/L (21-32) Anion Gap 6 (6-14) 7 (6-14) Blood Urea Nitrogen 14 mg/dL (8-26) 12 mg/dL (8-26) Creatinine 0.6 mg/dL (0.7-1.3) 0.7 mg/dL (0.7-1.3) Estimated GFR (Cockcroft-Gault) 139.9 117.1 Glucose Level 82 mg/dL (70-99) 72 mg/dL (70-99) Calcium Level 6.9 mg/dL (8.5-10.1) 6.9 mg/dL (8.5-10.1) Magnesium Level 2.0 mg/dL (1.8-2.4) 1.9 mg/dL (1.8-2.4) Phosphorus Level 2.6 mg/dL (2.6-4.7) Comment Review of Relevant I have reviewed the following items anna marie (where applicable) has been applied. Medications: Current Medications Medications (Trade) Dose Ordered Sig/Mirta Route PRN Reason Start Time Stop Time Status Last Admin Dose Admin Sodium Chloride 1,000 ml @ 100 mls/hr Q10H IV 03/15/22 15:00 03/16/22 01:00 Enoxaparin Sodium (Lovenox 40mg Syringe) 40 mg Q24H SQ 03/15/22 21:00 03/15/22 20:25 Pantoprazole Sodium (PROTONIX VIAL for IV PUSH) 40 mg DAILYAC IVP 03/15/22 15:00 03/16/22 10:18 Diphenhydramine HCl (Benadryl) 25 mg PRN QHS PRN PO INSOMNIA, 1st CHOICE 03/15/22 14:15 03/15/22 20:25 Justifications for Admission Other Justification Abdominal pain due to small bowel obstruction MARIFER CUEVAS MD March 16, 2022 11:35
[2022-03-16 15:00] VITALS: BP 91/57
[2022-03-16 19:00] VITALS: BP 103/58
[2022-03-16] MEDS: ENOXAPARIN 40 MG/0.4 ML SYRINGE. SQ SCH (21:59)
[2022-03-16] MEDS ORDERED: TOTAL PARENTERAL NUTRITION 1,446.4667 ML, AMINO ACID 15% 60 GM, DEXTROSE 70 % IN WATER ... IV SCH (22:00)
[2022-03-16 22:31] VITALS: BP 100/64
[2022-03-17 03:46] VITALS: BP 102/64
[2022-03-17 05:02] LABS: BASO % 1 % (0-3); EOS # 0.1 x10^3/uL (0.0-0.7); EOS % 1 % (0-3); HEMATOCRIT 34.1 % (39.0-53.0); LYMPH # 1.2 x10^3/uL (1.0-4.8); LYMPH % 32 % (24-48); MEAN CORPUSCULAR HEMOGLOBIN 29 pg (25-35); MEAN CORPUSCULAR HGB CONC 32 g/dL (31-37); MEAN CORPUSCULAR VOLUME 88 fL (79-100); MONO # 0.4 x10^3/uL (0.0-1.1); MONO % 12 % (0-9); NEUT % 54 % (31-73); PLATELET COUNT 332 x10^3/uL (140-400); RED BLOOD COUNT 3.86 x10^6/uL (4.30-5.70); RED CELL DISTRIBUTION WIDTH 20.8 % (11.5-14.5); WHITE BLOOD COUNT 3.7 x10^3/uL (4.0-11.0)
[2022-03-17 05:58] LABS: ALBUMIN 1.1 g/dL (3.4-5.0)
[2022-03-17 05:59] LABS: CREATININE 0.6 mg/dL (0.7-1.3); GFR 139.9; POTASSIUM 4.3 mmol/L (3.5-5.1)
[2022-03-17] MEDS: IV NORMAL SALINE 1000ML BAG 1,000 ML IV SCH (07:00)
[2022-03-17 07:30] VITALS: BP 93/54
[2022-03-17] MEDS ORDERED: LIDOCAINE WITH 8.4% SOD BICARB 3 ML DISP.SYRIN. ONE (08:00)
--- NOTE | 2022-03-17 08:16 | PDOC ---
SURGICAL PROGRESS NOTE DATE: 03/17/22 TIME: 08:15 Subjective Patient states he is feeling better today since he has not eaten. He describes his abdominal pain after eating he gets cramps and then will have a large loose stool and feel better. Vital Signs Vital Signs Date Time Temp Pulse Resp B/P (MAP) Pulse Ox O2 Delivery O2 Flow Rate FiO2 03/17/22 07:30 97.9 74 18 93/54 (67) 98 Room Air 97.9 I&O Intake and Output 03/17/22 07:00 Output Total 1 ml Balance -1 ml Output Urine Total 1 ml PATIENT HAS A RAMEY: No General: Alert, Oriented X3, Cooperative, No acute distress Abdomen: Normal bowel sounds, Soft, No tenderness, Other (Nondistended) Labs Laboratory Tests Test 03/15/22 14:35 03/16/22 06:00 03/17/22 04:25 White Blood Count 5.5 x10^3/uL (4.0-11.0) 5.0 x10^3/uL (4.0-11.0) 3.7 x10^3/uL (4.0-11.0) Red Blood Count 4.14 x10^6/uL (4.30-5.70) 3.90 x10^6/uL (4.30-5.70) 3.86 x10^6/uL (4.30-5.70) Hemoglobin 11.7 g/dL (13.0-17.5) 11.3 g/dL (13.0-17.5) 11.0 g/dL (13.0-17.5) Hematocrit 35.8 % (39.0-53.0) 34.0 % (39.0-53.0) 34.1 % (39.0-53.0) Mean Corpuscular Volume 86 fL (79-100) 87 fL (79-100) 88 fL (79-100) Mean Corpuscular Hemoglobin 28 pg (25-35) 29 pg (25-35) 29 pg (25-35) Mean Corpuscular Hemoglobin Concent 33 g/dL (31-37) 33 g/dL (31-37) 32 g/dL (31-37) Red Cell Distribution Width 21.2 % (11.5-14.5) 20.6 % (11.5-14.5) 20.8 % (11.5-14.5) Platelet Count 388 x10^3/uL (140-400) 342 x10^3/uL (140-400) 332 x10^3/uL (140-400) Neutrophils (%) (Auto) 62 % (31-73) 61 % (31-73) 54 % (31-73) Lymphocytes (%) (Auto) 24 % (24-48) 25 % (24-48) 32 % (24-48) Monocytes (%) (Auto) 13 % (0-9) 12 % (0-9) 12 % (0-9) Eosinophils (%) (Auto) 1 % (0-3) 2 % (0-3) 1 % (0-3) Basophils (%) (Auto) 1 % (0-3) 1 % (0-3) 1 % (0-3) Neutrophils # (Auto) 3.4 x10^3/uL (1.8-7.7) 3.0 x10^3/uL (1.8-7.7) 2.0 x10^3/uL (1.8-7.7) Lymphocytes # (Auto) 1.3 x10^3/uL (1.0-4.8) 1.2 x10^3/uL (1.0-4.8) 1.2 x10^3/uL (1.0-4.8) Monocytes # (Auto) 0.7 x10^3/uL (0.0-1.1) 0.6 x10^3/uL (0.0-1.1) 0.4 x10^3/uL (0.0-1.1) Eosinophils # (Auto) 0.1 x10^3/uL (0.0-0.7) 0.1 x10^3/uL (0.0-0.7) 0.1 x10^3/uL (0.0-0.7) Basophils # (Auto) 0.0 x10^3/uL (0.0-0.2) 0.0 x10^3/uL (0.0-0.2) 0.0 x10^3/uL (0.0-0.2) Platelet Estimate Adequate (ADEQUATE) Poikilocytosis Slight Anisocytosis Mod Sodium Level 141 mmol/L (136-145) 143 mmol/L (136-145) 144 mmol/L (136-145) Potassium Level 3.6 mmol/L (3.5-5.1) 3.8 mmol/L (3.5-5.1) 4.3 mmol/L (3.5-5.1) Chloride Level 109 mmol/L (98-107) 112 mmol/L (98-107) 115 mmol/L (98-107) Carbon Dioxide Level 26 mmol/L (21-32) 24 mmol/L (21-32) 18 mmol/L (21-32) Anion Gap 6 (6-14) 7 (6-14) 11 (6-14) Blood Urea Nitrogen 14 mg/dL (8-26) 12 mg/dL (8-26) 12 mg/dL (8-26) Creatinine 0.6 mg/dL (0.7-1.3) 0.7 mg/dL (0.7-1.3) 0.6 mg/dL (0.7-1.3) Estimated GFR (Cockcroft-Gault) 139.9 117.1 139.9 Glucose Level 82 mg/dL (70-99) 72 mg/dL (70-99) 41 mg/dL (70-99) Calcium Level 6.9 mg/dL (8.5-10.1) 6.9 mg/dL (8.5-10.1) 7.0 mg/dL (8.5-10.1) Magnesium Level 2.0 mg/dL (1.8-2.4) 1.9 mg/dL (1.8-2.4) 2.0 mg/dL (1.8-2.4) Phosphorus Level 2.6 mg/dL (2.6-4.7) 3.0 mg/dL (2.6-4.7) Albumin 1.1 g/dL (3.4-5.0) Laboratory Tests Test 03/17/22 04:25 White Blood Count 3.7 x10^3/uL (4.0-11.0) Red Blood Count 3.86 x10^6/uL (4.30-5.70) Hemoglobin 11.0 g/dL (13.0-17.5) Hematocrit 34.1 % (39.0-53.0) Mean Corpuscular Volume 88 fL (79-100) Mean Corpuscular Hemoglobin 29 pg (25-35) Mean Corpuscular Hemoglobin Concent 32 g/dL (31-37) Red Cell Distribution Width 20.8 % (11.5-14.5) Platelet Count 332 x10^3/uL (140-400) Neutrophils (%) (Auto) 54 % (31-73) Lymphocytes (%) (Auto) 32 % (24-48) Monocytes (%) (Auto) 12 % (0-9) Eosinophils (%) (Auto) 1 % (0-3) Basophils (%) (Auto) 1 % (0-3) Neutrophils # (Auto) 2.0 x10^3/uL (1.8-7.7) Lymphocytes # (Auto) 1.2 x10^3/uL (1.0-4.8) Monocytes # (Auto) 0.4 x10^3/uL (0.0-1.1) Eosinophils # (Auto) 0.1 x10^3/uL (0.0-0.7) Basophils # (Auto) 0.0 x10^3/uL (0.0-0.2) Sodium Level 144 mmol/L (136-145) Potassium Level 4.3 mmol/L (3.5-5.1) Chloride Level 115 mmol/L (98-107) Carbon Dioxide Level 18 mmol/L (21-32) Anion Gap 11 (6-14) Blood Urea Nitrogen 12 mg/dL (8-26) Creatinine 0.6 mg/dL (0.7-1.3) Estimated GFR (Cockcroft-Gault) 139.9 Glucose Level 41 mg/dL (70-99) Calcium Level 7.0 mg/dL (8.5-10.1) Phosphorus Level 3.0 mg/dL (2.6-4.7) Magnesium Level 2.0 mg/dL (1.8-2.4) Albumin 1.1 g/dL (3.4-5.0) Assessment/Plan Neuroendocrine tumor possible partial bowel obstruction versus recurrence of neuroendocrine tumor Patient needs TPN nutrition, awaiting oncology's evaluation Justicifation of Admission Dx: Justifications for Admission: Justification of Admission Dx: Yes CHF: Cardiac Arrhythmias SAIDA CARL MD March 17, 2022 08:16
[2022-03-17] MEDS ORDERED: LIDOCAINE WITH 8.4% SOD BICARB 3 ML DISP.SYRIN. INJ ONE (08:30)
[2022-03-17 09:01] LABS: DIRECT BILIRUBIN 0.3 mg/dL (0.0-0.2); TOTAL BILIRUBIN 0.7 mg/dL (0.2-1.0); TOTAL PROTEIN 4.1 g/dL (6.4-8.2)
[2022-03-17 09:03] LABS: ALBUMIN 1.1 g/dL (3.4-5.0)
--- NOTE | 2022-03-17 09:20 | RAD ---
Date: 03/17/2022 Exam: Fluoroscopic and ultrasound guided peripheral central venous catheter placement. Indication: Consent: The procedure was explained in its entirety to the patient or the patients designated repres entative by a member of the treatment team, including a discussion of the risks, benefits and commonl y accepted alternatives to the procedure, as well as the expected consequences of no therapy whatsoev er. Discussion of the risks included, but was not limited to, those that are most frequent and thos e that are rare but possibly severe or life-threatening, as well as the possibility of unforeseen com plications. Discussion: A timeout procedure was performed. The patient was prepped and draped using maximum sterile techniq ue, including the use of: Current guideline approved cutaneous antisepsis, a large sterile sheet to e stablish a sterile field. Additionally the still operator batch or continuous wore a hat, mask, sterile gloves, a sterile gown during the procedure as well as practiced acceptable hand hygiene prior to placing the line. 1% lidoc carlos was administered for local anesthesia. Ultrasound evaluation demonstrates a patent right basilic vein. [facility] The selected vein was accessed using micropuncture technique. A guidewire was advanced centrally. The PICC line was cut to length, and advanced through a peel-away sheath such that it's tip resides at the cavoatrial junction. The peel-away sheath a sheath was removed. The catheter was s ecured in place. The catheter was found to flush and aspirate normally.. Sterile dressings were appli ed. No immediate complications were identified. Fluoroscopy time: 0.2 minutes Dose area product: 0.2 Gycm2 Impression: Successful placement of a right upper extremity PICC line Electronically signed by: David Stevenson MD (03/17/2022 9:17 AM) [id number]
[2022-03-17] MEDS: PANTOPRAZOLE IV PUSH 40 MG VIAL. IVP SCH (09:34)
[2022-03-17] MEDS ORDERED: AA 4.25 %/CALCIUM/LYTES/D5W 1,000 ML IV SCH (10:15)
[2022-03-17 10:41] VITALS: BP 92/52
[2022-03-17] MEDS: TPN PER PHARMACY MC PRN (10:55)
--- NOTE | 2022-03-17 10:58 | NUR ---
Pharmacy TPN Dosing Note S: LILIANA CHAVIRA is a 56 year old M Currently receiving Central Continuous TPN started 03/16/22 B:Pertinent PMH: SBO, NPO LABS: Sodium: 144 Potassium: 4.3 Chloride: 115 Calcium: 7.0 Corrected Calcium: 9.32 Magnesium: 2.0 CO2: 18 SCr: 0.6 Glucose: 41 Albumin: 1.1 TPN FORMULA: TPN TYPE: Central Continuous AMINO ACIDS: 85 gm DEXTROSE: 280 gm LIPIDS: 35 gm SODIUM CHLORIDE: 90 mEq SODIUM ACETATE: -- mEq SODIUM PHOSPHATE: -- mmol POTASSIUM CHLORIDE: -- mEq POTASSIUM ACETATE: 50 mEq POTASSIUM PHOSPHATE: 13.6 mmol MAGNESIUM: 10 mEq CALCIUM: -- mEq INSULIN: units MULTIPLE VITAMIN: 10 ml TRACE ELEMENTS: 1 ml(s) TPN PLAN: 03/17 [facility] PER [facility], LABS ORDERED THRU 03/21/22 R: Begin TPN as above Will monitor electrolytes, glucose, and tolerance to TPN. LENORA JIMENEZ [facility], 03/17/22 [id number]
--- NOTE | 2022-03-17 13:19 | PDOC ---
[employer] PROGRESS NOTE Date of Service DOS: DATE: 03/17/22 TIME: 13:19 Chief Complaint Chief Complaint Assessment/Plan Acute abdominal pain secondary to partial SBO, possible adhesions versus tumor recurrence History of neuroendocrine small bowel tumor History of exploratory laparotomy with small bowel resection and tumor resection History of atrial fibrillation Weight loss with severe protein malnutrition PICC line placement and will start on TPN for supplementary nutrition. Oncology consult for possible tumor recurrence General surgery consult NPO Continue IV fluids Serial abdominal exams Baseline admission labs Telemetry if patient has symptomatic palpitations Metoprolol as needed for target heart rate less than 110 for his history of atrial fibrillation Lovenox for DVT prophylaxis Protonix IV GI prophylaxis NPO CODE STATUS full Discussed with RN and SW Disposition inpatient management as above DPOA: History of Present Illness History of Present Illness 55-year-old male with past medical history of neuroendocrine resection in August from an exploratory laparotomy with small bowel resection who comes in with worsening abdominal pain ever since surgery in August. Patient describes his pain is gotten to the point where he sees his stomach distend and also make large gurgling noises audible without a stethoscope. Patient does endorse mild nausea but no active vomiting. He does have very loose bowel movements at least 2-3 times per day. Patient has not started any chemoradiation treatments. He denies any fevers, chest pain, hematuria, bloody stools or palpitations or syncope. No loss of appetite. He does endorse weight loss of about 40 pounds since the time of his surgery. Patient was sent as a direct admit from his PCP Dr. Reed after a CT abdomen was done showing small bowel obstruction. Patient is admitted for further care and further evaluation by general surgery and oncology 03/16/2022 No acute events overnight. Patient seen examined bedside. Still having abdominal pain and cramps. No bowel movements. Pending definitive plan from surgery and oncology. Patient's chart, labs, images were reviewed and discussed with RN 03/17/2022 No acute events overnight. Patient seen examined bedside. PICC line placed for TPN. No nausea vomiting episodes. Pain improved after not eating. Patient's chart, labs, images were reviewed and discussed with RN Vitals/I&O Vitals/I&O: Vital Signs Date Time Temp Pulse Resp B/P (MAP) Pulse Ox O2 Delivery O2 Flow Rate FiO2 5/27/22 10:41 98.0 69 20 92/52 (65) 99 Room Air 98.0 I & O 03/16/22 03/16/22 03/17/22 15:00 23:00 07:00 Output Total 1 ml Balance -1 ml Physical Exam General: Alert, Oriented X3, Cooperative, No acute distress Heart: Regular rate, No murmurs Lungs: Clear Abdomen: Normal bowel sounds, Soft, No tenderness, Other (Nondistended) Extremities: No edema Skin: No significant lesion Labs Labs: Laboratory Tests Test 03/17/22 04:25 White Blood Count 3.7 x10^3/uL (4.0-11.0) Red Blood Count 3.86 x10^6/uL (4.30-5.70) Hemoglobin 11.0 g/dL (13.0-17.5) Hematocrit 34.1 % (39.0-53.0) Mean Corpuscular Volume 88 fL (79-100) Mean Corpuscular Hemoglobin 29 pg (25-35) Mean Corpuscular Hemoglobin Concent 32 g/dL (31-37) Red Cell Distribution Width 20.8 % (11.5-14.5) Platelet Count 332 x10^3/uL (140-400) Neutrophils (%) (Auto) 54 % (31-73) Lymphocytes (%) (Auto) 32 % (24-48) Monocytes (%) (Auto) 12 % (0-9) Eosinophils (%) (Auto) 1 % (0-3) Basophils (%) (Auto) 1 % (0-3) Neutrophils # (Auto) 2.0 x10^3/uL (1.8-7.7) Lymphocytes # (Auto) 1.2 x10^3/uL (1.0-4.8) Monocytes # (Auto) 0.4 x10^3/uL (0.0-1.1) Eosinophils # (Auto) 0.1 x10^3/uL (0.0-0.7) Basophils # (Auto) 0.0 x10^3/uL (0.0-0.2) Sodium Level 144 mmol/L (136-145) Potassium Level 4.3 mmol/L (3.5-5.1) Chloride Level 115 mmol/L (98-107) Carbon Dioxide Level 18 mmol/L (21-32) Anion Gap 11 (6-14) Blood Urea Nitrogen 12 mg/dL (8-26) Creatinine 0.6 mg/dL (0.7-1.3) Estimated GFR (Cockcroft-Gault) 139.9 Glucose Level 41 mg/dL (70-99) Calcium Level 7.0 mg/dL (8.5-10.1) Phosphorus Level 3.0 mg/dL (2.6-4.7) Magnesium Level 2.0 mg/dL (1.8-2.4) Total Bilirubin 0.7 mg/dL (0.2-1.0) Direct Bilirubin 0.3 mg/dL (0.0-0.2) Aspartate Amino Transf (AST/SGOT) 16 U/L (15-37) Alanine Aminotransferase (ALT/SGPT) 13 U/L (16-63) Alkaline Phosphatase 85 U/L (46-116) Total Protein 4.1 g/dL (6.4-8.2) Albumin 1.1 g/dL (3.4-5.0) Comment Review of Relevant I have reviewed the following items anna marie (where applicable) has been applied. Medications: Current Medications Medications (Trade) Dose Ordered Sig/Mirta Route PRN Reason Start Time Stop Time Status Last Admin Dose Admin Info (Tpn Per Pharmacy) 1 each PRN DAILY PRN MC SEE COMMENTS 03/17/22 13:15 03/17/22 10:55 Amino Acids/ Electrolytes/ Dextrose 1,000 ml @ 80 mls/hr [id number] IV 03/17/22 10:15 03/17/22 21:59 03/17/22 11:24 Justifications for Admission Other Justification Abdominal pain due to small bowel obstruction MARIFER CUEVAS MD March 17, 2022 13:19
--- NOTE | 2022-03-17 13:23 | PDOC2 ---
CONSULT Date of Consult Date of Consult DATE: 03/17/22 TIME: 13:14 Reason for Consult Reason for Consult: History of neuroendocrine tumor. Hospitalized with obstruction Referring Physician Referring Physician: Dr. Munoz and Dr. Phipps Identification/Chief Complaint Chief Complaint Abdominal pain Source Source: Chart review, Patient History of Present Illness Reason for Visit: Nehemias Zavaleta is a 56-year-old male with known history of neuroendocrine tumor who has been hospitalized with abdominal pain. Patient is known to me from the office. 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 On 09/18/2021, Dr. Munoz performed small bowel resection and mesenteric mass resection. Pathology showed well-differentiated neuroendocrine tumor. CT CAP obtained during hospital stay did not show any evidence of distant metastasis. We reviewed his lab results, pathology results and CT findings post hospital discharge and I recommended continued adela veillance. Repeat CT and office visit were scheduled for March 2022. He has now been admitted with recurrent abdominal pain. He states the pain is typically in the form of constant cramping. This worsens with intake of food and is typically improved after he passes a bowel movement. Denies flushing. States he had similar symptoms for the last 2 years which worsened leading up to his visitation in late [address] AP obtained on 03/10/2022 showed wall thickening and adjacent inflammatory changes in the distal small bowel with distention of the proximal small bowel concerning for early or partial obstruction. Wall thickening suggests etiology perhaps related to inflammatory bowel disease in the setting of ankylosing spondylitis. Additionally provided history of mesenteric neuroendocrine tumor, recurrent/residual tumor is within the differential. Diffuse mesenteric stranding and increased attenuation may be due to mass infiltration rather than edema. Consider nuclear medicine exam for neuroendocrine tumor evaluation such as octreoscan or neuroendocrine PET. Finally, a mechanical obstruction from adhesions is possible the setting of prior bowel surgery however thought to be less likely due to prominent wall thickening of the small bowel. In addition, CT also showed ankylosing spondylitis, diverticulosis and small bilateral pleural effusions Past Medical History Cardiovascular: No pertinent hx Pulmonary: No pertinent hx GI: GI bleed, Peptic Ulcer disease Heme/Onc: No pertinent hx Hepatobiliary: No pertinent hx Psych: No pertinent hx Rheumatologic: No pertinent hx Infectious disease: No pertinent hx Renal/: No pertinent hx Endocrine: No pertinent hx Past Surgical History Past Surgical History: No pertinent history Family History Family History: Other Social History ALCOHOL: other Drugs: None Lives: with Family Current Medications Current Medications Current Medications Sennosides (Senna) 17.2 mg PRN BID PRN PO CONSTIPATION; Start 03/15/22 at 14:15 Docusate Sodium (Colace) 100 mg PRN DAILY PRN PO HARD STOOLS; Start 03/15/22 at 14:15 Ondansetron HCl (Zofran) 4 mg PRN Q6HRS PRN IVP NAUSEA/VOMITING, 1st CHOICE; Start 03/15/22 at 14:15 Dextrose (Dextrose 50%-Water Syringe) 12.5 gm PRN Q15MIN PRN IV SEE COMMENTS; Start 03/15/22 at 14:15 Sodium Chloride 1,000 ml @ 100 mls/hr Q10H IV Last administered on 03/17/22at 07:00; Start 03/15/22 at 15:00 Acetaminophen (Tylenol) 650 mg PRN Q4HRS PRN PO TEMP OVER 100.4F OR MILD PAIN; Start 03/15/22 at 14:15 Lorazepam (Ativan) 0.5 mg PRN Q6HRS PRN PO ANXIETY / AGITATION; Start 03/15/22 at 14:15 Lorazepam (Ativan Inj) 0.25 mg PRN Q4HRS PRN IV ANXIETY / AGITATION; Start 03/15/22 at 14:15 Enoxaparin Sodium (Lovenox 40mg Syringe) 40 mg Q24H SQ Last administered on at 21:59; Start 03/15/22 at 21:00 Pantoprazole Sodium (PROTONIX VIAL for IV PUSH) 40 mg DAILYAC IVP Last administered on 03/17/22at 09:34; Start 03/15/22 at 15:00 Morphine Sulfate (Morphine Sulfate) 1 mg PRN Q1HR PRN IV PAIN; Start 03/15/22 at 14:15 Morphine Sulfate (Morphine Sulfate) 2 mg PRN Q2HR PRN IVP SEVERE PAIN 7-10; Start 03/15/22 at 14:15; Stop 03/16/22 at 14:14; Status DC Prochlorperazine Edisylate (Compazine) 10 mg PRN Q6HRS PRN IV NAUSEA/VOMITING, 2nd CHOICE; Start 03/15/22 at 14:15 Diphenhydramine HCl (Benadryl) 25 mg PRN Q6HRS PRN IVP ITCHING; Start 03/15/22 at 14:15 Diphenhydramine HCl (Benadryl) 25 mg PRN Q6HRS PRN PO ITCHING; Start 03/15/22 at 14:15 Diphenhydramine HCl (Benadryl) 25 mg PRN QHS PRN PO INSOMNIA, 1st CHOICE Last administered on 03/15/22at 20:25; Start 03/15/22 at 14:15 Zolpidem Tartrate (Ambien) 2.5 mg PRN QHS PRN PO INSOMNIA, 2nd CHOICE; Start 03/15/22 at 14:15 Metoprolol Tartrate (Lopressor Vial) 5 mg PRN Q5MIN PRN IVP TACHYCARDIA; Start 03/15/22 at 14:30 Info (Tpn Per Pharmacy) 1 each PRN DAILY PRN MC SEE COMMENTS Last administered on 03/16/22at 13:01; Start 03/16/22 at 10:00; Stop 03/16/22 at 13:09; Status DC Sodium Chloride 90 meq/Potassium Acetate 50 meq/ Potassium Phosphate 13.6 mmol/Magnesium Sulfate 10 meq/ Multivitamins 10 ml/Zinc/Copper/ Manganese/ Selenium 1 ml/ Total Parenteral Nutrition/Amino Acids/Dextrose/ Fat Emulsion Intravenous 1,512 ml @ 63 mls/hr TPN CONT IV ; Start 03/16/22 at 22:00; Stop 03/17/22 at 21:59; Status Cancel Info (Tpn Per Pharmacy) 1 each PRN DAILY PRN MC SEE COMMENTS Last administered on 03/17/22at 10:55; Start 03/17/22 at 13:15 Lidocaine HCl (Buffered Lidocaine 1%) 3 ml STK-MED ONCE .ROUTE ; Start 03/17/22 at 08:00; Stop 03/17/22 at 08:01; Status DC Lidocaine HCl (Buffered Lidocaine 1%) 6 ml 1X ONCE INJ ; Start 03/17/22 at 08:30; Stop 03/17/22 at 08:31; Status DC Amino Acids/ Electrolytes/ Dextrose 1,000 ml @ 80 mls/hr [id number] IV Last administered on 03/17/22at 11:24; Start 03/17/22 at 10:15; Stop 03/17/22 at 21:59 Sodium Chloride 90 meq/Potassium Acetate 50 meq/ Potassium Phosphate 13.6 mmol/Magnesium Sulfate 10 meq/ Multivitamins 10 ml/Zinc/Copper/ Manganese/ Selenium 1 ml/ Total Parenteral Nutrition/Amino Acids/Dextrose/ Fat Emulsion Intravenous 1,512 ml @ 63 mls/hr TPN CONT IV ; Start 03/17/22 at 22:00; Stop 03/18/22 at 21:59 Active Scripts Active Reported Reglan (Metoclopramide Hcl) 5 Mg Tablet 1 Tab PO TIDAC 20 Days 1 hour prior to procedure Dicyclomine Hcl 10 Mg Capsule 1 Cap PO TIDWMEALS Allergies Allergies: Coded Allergies: No Known Drug Allergies (Unverified , 05/29/17) ROS Review of System Negative for flushing. Denies hematemesis melena or hematochezia Physical Exam General: Alert, Oriented X3 HEENT: Atraumatic Lungs: Clear to auscultation Heart: Regular rate, Normal S1 Abdomen: Normal bowel sounds, Soft Extremities: No cyanosis Psych/Mental Status: Mental status NL MUSCULOSKELETAL: No deformity Vitals VITALS Vital Signs Date Time Temp Pulse Resp B/P (MAP) Pulse Ox O2 Delivery O2 Flow Rate FiO2 03/17/22 10:41 98.0 69 20 92/52 (65) 99 Room Air 98.0 Labs Labs Laboratory Tests Test 03/15/22 14:35 03/16/22 06:00 03/17/22 04:25 White Blood Count 5.5 x10^3/uL (4.0-11.0) 5.0 x10^3/uL (4.0-11.0) 3.7 x10^3/uL (4.0-11.0) Red Blood Count 4.14 x10^6/uL (4.30-5.70) 3.90 x10^6/uL (4.30-5.70) 3.86 x10^6/uL (4.30-5.70) Hemoglobin 11.7 g/dL (13.0-17.5) 11.3 g/dL (13.0-17.5) 11.0 g/dL (13.0-17.5) Hematocrit 35.8 % (39.0-53.0) 34.0 % (39.0-53.0) 34.1 % (39.0-53.0) Mean Corpuscular Volume 86 fL (79-100) 87 fL (79-100) 88 fL (79-100) Mean Corpuscular Hemoglobin 28 pg (25-35) 29 pg (25-35) 29 pg (25-35) Mean Corpuscular Hemoglobin Concent 33 g/dL (31-37) 33 g/dL (31-37) 32 g/dL (31-37) Red Cell Distribution Width 21.2 % (11.5-14.5) 20.6 % (11.5-14.5) 20.8 % (11.5-14.5) Platelet Count 388 x10^3/uL (140-400) 342 x10^3/uL (140-400) 332 x10^3/uL (140-400) Neutrophils (%) (Auto) 62 % (31-73) 61 % (31-73) 54 % (31-73) Lymphocytes (%) (Auto) 24 % (24-48) 25 % (24-48) 32 % (24-48) Monocytes (%) (Auto) 13 % (0-9) 12 % (0-9) 12 % (0-9) Eosinophils (%) (Auto) 1 % (0-3) 2 % (0-3) 1 % (0-3) Basophils (%) (Auto) 1 % (0-3) 1 % (0-3) 1 % (0-3) Neutrophils # (Auto) 3.4 x10^3/uL (1.8-7.7) 3.0 x10^3/uL (1.8-7.7) 2.0 x10^3/uL (1.8-7.7) Lymphocytes # (Auto) 1.3 x10^3/uL (1.0-4.8) 1.2 x10^3/uL (1.0-4.8) 1.2 x10^3/uL (1.0-4.8) Monocytes # (Auto) 0.7 x10^3/uL (0.0-1.1) 0.6 x10^3/uL (0.0-1.1) 0.4 x10^3/uL (0.0-1.1) Eosinophils # (Auto) 0.1 x10^3/uL (0.0-0.7) 0.1 x10^3/uL (0.0-0.7) 0.1 x10^3/uL (0.0-0.7) Basophils # (Auto) 0.0 x10^3/uL (0.0-0.2) 0.0 x10^3/uL (0.0-0.2) 0.0 x10^3/uL (0.0-0.2) Platelet Estimate Adequate (ADEQUATE) Poikilocytosis Slight Anisocytosis Mod Sodium Level 141 mmol/L (136-145) 143 mmol/L (136-145) 144 mmol/L (136-145) Potassium Level 3.6 mmol/L (3.5-5.1) 3.8 mmol/L (3.5-5.1) 4.3 mmol/L (3.5-5.1) Chloride Level 109 mmol/L (98-107) 112 mmol/L (98-107) 115 mmol/L (98-107) Carbon Dioxide Level 26 mmol/L (21-32) 24 mmol/L (21-32) 18 mmol/L (21-32) Anion Gap 6 (6-14) 7 (6-14) 11 (6-14) Blood Urea Nitrogen 14 mg/dL (8-26) 12 mg/dL (8-26) 12 mg/dL (8-26) Creatinine 0.6 mg/dL (0.7-1.3) 0.7 mg/dL (0.7-1.3) 0.6 mg/dL (0.7-1.3) Estimated GFR (Cockcroft-Gault) 139.9 117.1 139.9 Glucose Level 82 mg/dL (70-99) 72 mg/dL (70-99) 41 mg/dL (70-99) Calcium Level 6.9 mg/dL (8.5-10.1) 6.9 mg/dL (8.5-10.1) 7.0 mg/dL (8.5-10.1) Magnesium Level 2.0 mg/dL (1.8-2.4) 1.9 mg/dL (1.8-2.4) 2.0 mg/dL (1.8-2.4) Phosphorus Level 2.6 mg/dL (2.6-4.7) 3.0 mg/dL (2.6-4.7) Total Bilirubin 0.7 mg/dL (0.2-1.0) Direct Bilirubin 0.3 mg/dL (0.0-0.2) Aspartate Amino Transf (AST/SGOT) 16 U/L (15-37) Alanine Aminotransferase (ALT/SGPT) 13 U/L (16-63) Alkaline Phosphatase 85 U/L (46-116) Total Protein 4.1 g/dL (6.4-8.2) Albumin 1.1 g/dL (3.4-5.0) Laboratory Tests Test 03/17/22 04:25 White Blood Count 3.7 x10^3/uL (4.0-11.0) Red Blood Count 3.86 x10^6/uL (4.30-5.70) Hemoglobin 11.0 g/dL (13.0-17.5) Hematocrit 34.1 % (39.0-53.0) Mean Corpuscular Volume 88 fL (79-100) Mean Corpuscular Hemoglobin 29 pg (25-35) Mean Corpuscular Hemoglobin Concent 32 g/dL (31-37) Red Cell Distribution Width 20.8 % (11.5-14.5) Platelet Count 332 x10^3/uL (140-400) Neutrophils (%) (Auto) 54 % (31-73) Lymphocytes (%) (Auto) 32 % (24-48) Monocytes (%) (Auto) 12 % (0-9) Eosinophils (%) (Auto) 1 % (0-3) Basophils (%) (Auto) 1 % (0-3) Neutrophils # (Auto) 2.0 x10^3/uL (1.8-7.7) Lymphocytes # (Auto) 1.2 x10^3/uL (1.0-4.8) Monocytes # (Auto) 0.4 x10^3/uL (0.0-1.1) Eosinophils # (Auto) 0.1 x10^3/uL (0.0-0.7) Basophils # (Auto) 0.0 x10^3/uL (0.0-0.2) Sodium Level 144 mmol/L (136-145) Potassium Level 4.3 mmol/L (3.5-5.1) Chloride Level 115 mmol/L (98-107) Carbon Dioxide Level 18 mmol/L (21-32) Anion Gap 11 (6-14) Blood Urea Nitrogen 12 mg/dL (8-26) Creatinine 0.6 mg/dL (0.7-1.3) Estimated GFR (Cockcroft-Gault) 139.9 Glucose Level 41 mg/dL (70-99) Calcium Level 7.0 mg/dL (8.5-10.1) Phosphorus Level 3.0 mg/dL (2.6-4.7) Magnesium Level 2.0 mg/dL (1.8-2.4) Total Bilirubin 0.7 mg/dL (0.2-1.0) Direct Bilirubin 0.3 mg/dL (0.0-0.2) Aspartate Amino Transf (AST/SGOT) 16 U/L (15-37) Alanine Aminotransferase (ALT/SGPT) 13 U/L (16-63) Alkaline Phosphatase 85 U/L (46-116) Total Protein 4.1 g/dL (6.4-8.2) Albumin 1.1 g/dL (3.4-5.0) Assessment/Plan Assessment/Plan Assessment: Small bowel NET, well-differentiated, 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 Recommend conservative management for partial SBO. He continues to pass stool and flatus -Encourage oral diet as tolerated. TPN is reasonable in the interim. Defer to Dr. Munoz -Given CT findings, reasonable suspicion for cancer recurrence. Check chromogranin A and 24-hour urine HIAA level -We will plan on arranging dotatate PET as outpatient. Not available at [facility] -Consider adding octreotide/SSA for symptom and disease control if dotatate PET positive. -Would favor reevaluation with surgeon for laparoscopic and adhesiolysis if dotatate PET negative -Plan outpatient follow-up. Continue supportive care at this time Tomer Dominguez MD Medical Oncology/Hematology Ph: [phone] PB DOMINGUEZ MD March 17, 2022 13:23
[2022-03-17 14:49] VITALS: BP 99/54
[2022-03-17 19:15] VITALS: BP 99/60
[2022-03-17] MEDS: ENOXAPARIN 40 MG/0.4 ML SYRINGE. SQ SCH (20:55)
[2022-03-17] MEDS ORDERED: TOTAL PARENTERAL NUTRITION IV SCH (22:00)
[2022-03-17] MEDS ORDERED: DEXTROSE 70% IV SCH (22:00)
[2022-03-17] MEDS ORDERED: AMINO ACID IV SCH (22:00)
[2022-03-17] MEDS ORDERED: [UNRECOGNIZED DRUG - OTHER] IV SCH (22:00)
[2022-03-17 23:10] VITALS: BP 93/57
[2022-03-18 03:00] VITALS: BP 91/54
[2022-03-18 05:03] LABS: BASO % 1 % (0-3); EOS # 0.1 x10^3/uL (0.0-0.7); EOS % 2 % (0-3); HEMATOCRIT 32.5 % (39.0-53.0); HEMOGLOBIN 10.6 g/dL (13.0-17.5); LYMPH # 0.9 x10^3/uL (1.0-4.8); LYMPH % 18 % (24-48); MEAN CORPUSCULAR HEMOGLOBIN 29 pg (25-35); MEAN CORPUSCULAR HGB CONC 33 g/dL (31-37); MEAN CORPUSCULAR VOLUME 88 fL (79-100); MONO # 0.6 x10^3/uL (0.0-1.1); MONO % 12 % (0-9); NEUT # 3.4 x10^3/uL (1.8-7.7); NEUT % 68 % (31-73); PLATELET COUNT 309 x10^3/uL (140-400); RED CELL DISTRIBUTION WIDTH 20.2 % (11.5-14.5)
[2022-03-18 05:48] LABS: CALCIUM 6.6 mg/dL (8.5-10.1); CREATININE 0.6 mg/dL (0.7-1.3); GFR 139.9; MAGNESIUM 1.9 mg/dL (1.8-2.4); POTASSIUM 3.9 mmol/L (3.5-5.1)
[2022-03-18 07:00] VITALS: BP 91/52
[2022-03-18] MEDS: PANTOPRAZOLE IV PUSH 40 MG VIAL. IVP SCH (08:19)
[2022-03-18] MEDS: TPN PER PHARMACY MC PRN (10:57)
[2022-03-18 11:00] VITALS: BP 97/57
--- NOTE | 2022-03-18 11:02 | NUR ---
Pharmacy TPN Dosing Note S: LILIANA CHAVIRA is a 56 year old M Currently receiving Central Continuous TPN started 03/16/22 B:Pertinent PMH: SBO, NPO Height: 5 feet, 10 inches Weight: 71.4 kg Current diet: LABS: Sodium: 141 Potassium: 3.9 Chloride: 114 Calcium: 6.6 Corrected Calcium: 8.92 Magnesium: 1.9 CO2: 24 SCr: 0.6 Glucose: 152 Albumin: 1.1 AST: 13 ALT: 85 TPN FORMULA: TPN TYPE: Central Continuous AMINO ACIDS: 85 gm DEXTROSE: 280 gm LIPIDS: 35 gm SODIUM CHLORIDE: 90 mEq POTASSIUM ACETATE: 50 mEq POTASSIUM PHOSPHATE: 13.6 mmol MAGNESIUM: 10 mEq MULTIPLE VITAMIN: 10 ml TRACE ELEMENTS: 1 ml(s) TPN PLAN: Continue same R: Continue TPN Will monitor electrolytes, glucose, and tolerance to TPN. Krista Sevilla RPH, 03/18/22 1103
--- NOTE | 2022-03-18 11:03 | PDOC ---
PROGRESS NOTES Date of Service DATE: 03/18/22 TIME: 11:02 Subjective Subjective feeling better with bowel rest, passing gas Objective Objective Vital Signs Date Time Temp Pulse Resp B/P (MAP) Pulse Ox O2 Delivery O2 Flow Rate FiO2 03/18/22 07:00 98.1 71 18 91/52 (65) 96 Room Air 98.1 Intake and Output 03/18/22 07:00 Output Total 600 ml Balance -600 ml Output Urine Total 600 ml Physical Exam Abdomen: Soft, No tenderness Extremities: No clubbing, No cyanosis General: Alert, Oriented X3 Lungs: Clear to auscultation Neuro: Normal speech Psych/Mental Status: Mental status NL Plan Plan of Care Improved clinically, continue tpn, bowel rest for now Comment Review of Relevant I have reviewed the following items anna marie (where applicable) has been applied. Labs Laboratory Tests Test 03/17/22 04:25 03/18/22 04:38 White Blood Count 3.7 x10^3/uL (4.0-11.0) 5.0 x10^3/uL (4.0-11.0) Red Blood Count 3.86 x10^6/uL (4.30-5.70) 3.70 x10^6/uL (4.30-5.70) Hemoglobin 11.0 g/dL (13.0-17.5) 10.6 g/dL (13.0-17.5) Hematocrit 34.1 % (39.0-53.0) 32.5 % (39.0-53.0) Mean Corpuscular Volume 88 fL (79-100) 88 fL (79-100) Mean Corpuscular Hemoglobin 29 pg (25-35) 29 pg (25-35) Mean Corpuscular Hemoglobin Concent 32 g/dL (31-37) 33 g/dL (31-37) Red Cell Distribution Width 20.8 % (11.5-14.5) 20.2 % (11.5-14.5) Platelet Count 332 x10^3/uL (140-400) 309 x10^3/uL (140-400) Neutrophils (%) (Auto) 54 % (31-73) 68 % (31-73) Lymphocytes (%) (Auto) 32 % (24-48) 18 % (24-48) Monocytes (%) (Auto) 12 % (0-9) 12 % (0-9) Eosinophils (%) (Auto) 1 % (0-3) 2 % (0-3) Basophils (%) (Auto) 1 % (0-3) 1 % (0-3) Neutrophils # (Auto) 2.0 x10^3/uL (1.8-7.7) 3.4 x10^3/uL (1.8-7.7) Lymphocytes # (Auto) 1.2 x10^3/uL (1.0-4.8) 0.9 x10^3/uL (1.0-4.8) Monocytes # (Auto) 0.4 x10^3/uL (0.0-1.1) 0.6 x10^3/uL (0.0-1.1) Eosinophils # (Auto) 0.1 x10^3/uL (0.0-0.7) 0.1 x10^3/uL (0.0-0.7) Basophils # (Auto) 0.0 x10^3/uL (0.0-0.2) 0.0 x10^3/uL (0.0-0.2) Sodium Level 144 mmol/L (136-145) 141 mmol/L (136-145) Potassium Level 4.3 mmol/L (3.5-5.1) 3.9 mmol/L (3.5-5.1) Chloride Level 115 mmol/L (98-107) 114 mmol/L (98-107) Carbon Dioxide Level 18 mmol/L (21-32) 24 mmol/L (21-32) Anion Gap 11 (6-14) 3 (6-14) Blood Urea Nitrogen 12 mg/dL (8-26) 12 mg/dL (8-26) Creatinine 0.6 mg/dL (0.7-1.3) 0.6 mg/dL (0.7-1.3) Estimated GFR (Cockcroft-Gault) 139.9 139.9 Glucose Level 41 mg/dL (70-99) 152 mg/dL (70-99) Calcium Level 7.0 mg/dL (8.5-10.1) 6.6 mg/dL (8.5-10.1) Phosphorus Level 3.0 mg/dL (2.6-4.7) Magnesium Level 2.0 mg/dL (1.8-2.4) 1.9 mg/dL (1.8-2.4) Total Bilirubin 0.7 mg/dL (0.2-1.0) Direct Bilirubin 0.3 mg/dL (0.0-0.2) Aspartate Amino Transf (AST/SGOT) 16 U/L (15-37) Alanine Aminotransferase (ALT/SGPT) 13 U/L (16-63) Alkaline Phosphatase 85 U/L (46-116) Total Protein 4.1 g/dL (6.4-8.2) Albumin 1.1 g/dL (3.4-5.0) Laboratory Tests Test 03/18/22 04:38 White Blood Count 5.0 x10^3/uL (4.0-11.0) Red Blood Count 3.70 x10^6/uL (4.30-5.70) Hemoglobin 10.6 g/dL (13.0-17.5) Hematocrit 32.5 % (39.0-53.0) Mean Corpuscular Volume 88 fL (79-100) Mean Corpuscular Hemoglobin 29 pg (25-35) Mean Corpuscular Hemoglobin Concent 33 g/dL (31-37) Red Cell Distribution Width 20.2 % (11.5-14.5) Platelet Count 309 x10^3/uL (140-400) Neutrophils (%) (Auto) 68 % (31-73) Lymphocytes (%) (Auto) 18 % (24-48) Monocytes (%) (Auto) 12 % (0-9) Eosinophils (%) (Auto) 2 % (0-3) Basophils (%) (Auto) 1 % (0-3) Neutrophils # (Auto) 3.4 x10^3/uL (1.8-7.7) Lymphocytes # (Auto) 0.9 x10^3/uL (1.0-4.8) Monocytes # (Auto) 0.6 x10^3/uL (0.0-1.1) Eosinophils # (Auto) 0.1 x10^3/uL (0.0-0.7) Basophils # (Auto) 0.0 x10^3/uL (0.0-0.2) Sodium Level 141 mmol/L (136-145) Potassium Level 3.9 mmol/L (3.5-5.1) Chloride Level 114 mmol/L (98-107) Carbon Dioxide Level 24 mmol/L (21-32) Anion Gap 3 (6-14) Blood Urea Nitrogen 12 mg/dL (8-26) Creatinine 0.6 mg/dL (0.7-1.3) Estimated GFR (Cockcroft-Gault) 139.9 Glucose Level 152 mg/dL (70-99) Calcium Level 6.6 mg/dL (8.5-10.1) Magnesium Level 1.9 mg/dL (1.8-2.4) Medications Current Medications Sennosides (Senna) 17.2 mg PRN BID PRN PO CONSTIPATION; Start 03/15/22 at 14:15 Docusate Sodium (Colace) 100 mg PRN DAILY PRN PO HARD STOOLS; Start 03/15/22 at 14:15 Ondansetron HCl (Zofran) 4 mg PRN Q6HRS PRN IVP NAUSEA/VOMITING, 1st CHOICE; Start 03/15/22 at 14:15 Dextrose (Dextrose 50%-Water Syringe) 12.5 gm PRN Q15MIN PRN IV SEE COMMENTS; Start 03/15/22 at 14:15 Sodium Chloride 1,000 ml @ 100 mls/hr Q10H IV Last administered on 03/17/22at 07:00; Start 03/15/22 at 15:00; Stop 03/17/22 at 14:32; Status DC Acetaminophen (Tylenol) 650 mg PRN Q4HRS PRN PO TEMP OVER 100.4F OR MILD PAIN; Start 03/15/22 at 14:15 Lorazepam (Ativan) 0.5 mg PRN Q6HRS PRN PO ANXIETY / AGITATION; Start 03/15/22 at 14:15 Lorazepam (Ativan Inj) 0.25 mg PRN Q4HRS PRN IV ANXIETY / AGITATION; Start 03/15/22 at 14:15 Enoxaparin Sodium (Lovenox 40mg Syringe) 40 mg Q24H SQ Last administered on 03/17/22at 20:55; Start 03/15/22 at 21:00 Pantoprazole Sodium (PROTONIX VIAL for IV PUSH) 40 mg DAILYAC IVP Last administered on 03/18/22at 08:19; Start 03/15/22 at 15:00 Morphine Sulfate (Morphine Sulfate) 1 mg PRN Q1HR PRN IV PAIN; Start 03/15/22 at 14:15 Morphine Sulfate (Morphine Sulfate) 2 mg PRN Q2HR PRN IVP SEVERE PAIN 7-10; Start 03/15/22 at 14:15; Stop 03/16/22 at 14:14; Status DC Prochlorperazine Edisylate (Compazine) 10 mg PRN Q6HRS PRN IV NAUSEA/VOMITING, 2nd CHOICE; Start 03/15/22 at 14:15 Diphenhydramine HCl (Benadryl) 25 mg PRN Q6HRS PRN IVP ITCHING; Start 03/15/22 at 14:15 Diphenhydramine HCl (Benadryl) 25 mg PRN Q6HRS PRN PO ITCHING; Start 03/15/22 at 14:15 Diphenhydramine HCl (Benadryl) 25 mg PRN QHS PRN PO INSOMNIA, 1st CHOICE Last administered on 03/15/22at 20:25; Start 03/15/22 at 14:15 Zolpidem Tartrate (Ambien) 2.5 mg PRN QHS PRN PO INSOMNIA, 2nd CHOICE; Start 03/15/22 at 14:15 Metoprolol Tartrate (Lopressor Vial) 5 mg PRN Q5MIN PRN IVP TACHYCARDIA; Start 03/15/22 at 14:30 Info (Tpn Per Pharmacy) 1 each PRN DAILY PRN MC SEE COMMENTS Last administered on 03/16/22at 13:01; Start 03/16/22 at 10:00; Stop 03/16/22 at 13:09; Status DC Sodium Chloride 90 meq/Potassium Acetate 50 meq/ Potassium Phosphate 13.6 mmol/Magnesium Sulfate 10 meq/ Multivitamins 10 ml/Zinc/Copper/ Manganese/ Selenium 1 ml/ Total Parenteral Nutrition/Amino Acids/Dextrose/ Fat Emulsion Intravenous 1,512 ml @ 63 mls/hr TPN CONT IV ; Start 03/16/22 at 22:00; Stop 03/17/22 at 21:59; Status Cancel Info (Tpn Per Pharmacy) 1 each PRN DAILY PRN MC SEE COMMENTS Last administered on 03/17/22at 10:55; Start 03/17/22 at 13:15 Lidocaine HCl (Buffered Lidocaine 1%) 3 ml STK-MED ONCE .ROUTE ; Start 03/17/22 at 08:00; Stop 03/17/22 at 08:01; Status DC Lidocaine HCl (Buffered Lidocaine 1%) 6 ml 1X ONCE INJ ; Start 03/17/22 at 08:30; Stop 03/17/22 at 08:31; Status DC Amino Acids/ Electrolytes/ Dextrose 1,000 ml @ 80 mls/hr [id number] IV Last administered on 03/17/22at 11:24; Start 03/17/22 at 10:15; Stop 03/17/22 at 21:59; Status DC Sodium Chloride 90 meq/Potassium Acetate 50 meq/ Potassium Phosphate 13.6 m mol/Magnesium Sulfate 10 meq/ Multivitamins 10 ml/Zinc/Copper/ Manganese/ Selenium 1 ml/ Total Parenteral Nutrition/Amino Acids/Dextrose/ Fat Emulsion Intravenous 1,512 ml @ 63 mls/hr TPN CONT IV Last administered on 03/17/22at 21:53; Start 03/17/22 at 22:00; Stop 03/18/22 at 21:59 Sodium Chloride 1,000 ml @ 50 mls/hr Q20H IV ; Start 03/18/22 at 09:30 Active Scripts Active Reported Reglan (Metoclopramide Hcl) 5 Mg Tablet 1 Tab PO TIDAC 20 Days 1 hour prior to procedure Dicyclomine Hcl 10 Mg Capsule 1 Cap PO TIDWMEALS Vitals/I & O Vital Sign - Last 24 Hours 03/17/22 03/17/22 03/17/22 03/17/22 14:49 19:15 20:00 23:10 Temp 98.0 99.7 98.1 98.0 99.7 98.1 Pulse 72 65 67 Resp 18 18 18 B/P (MAP) 99/54 (69) 99/60 (73) 93/57 (69) Pulse Ox 98 98 97 O2 Delivery Room Air Room Air Room Air Room Air 03/18/22 03/18/22 03:00 07:00 Temp 98.2 98.1 98.2 98.1 Pulse 70 71 Resp 18 18 B/P (MAP) 91/54 (66) 91/52 (65) Pulse Ox 96 96 O2 Delivery Room Air Room Air Intake and Output 03/17/22 03/17/2222 15:00 23:00 07:00 Output Total 600 ml Balance -600 ml Justifications for Admission Other Justification Abdominal pain due to small bowel obstruction Nutrition Consultation Dietary Evaluation: Recommendations by RD: Dietary education by RD, PPN/TPN Comments: REC TPN: 280 g dextrose, 85 g AA, 35 g lipid Expected Outcomes/Goals: to meet 70-75% energy needs via TPN Interpretation of weight loss: >10% in 6 months Malnutrition Findings: Food and Nutrition Intake (Sev: <50% est energy req 5days Body Fat Depletion (Non Severe: Mild Depletion Weight Status: Underweight TAVO TRIVEDI MD March 18, 2022 11:02
[2022-03-18] MEDS: IV 1/2 NORMAL SALINE 1,000 ML IV SCH (11:44)
--- NOTE | 2022-03-18 13:25 | PDOC ---
[facility] PROGRESS NOTE Date of Service DOS: DATE: 03/18/22 TIME: 13:23 Chief Complaint Chief Complaint Assessment/Plan Acute abdominal pain secondary to partial SBO, possible adhesions versus tumor recurrence History of neuroendocrine small bowel tumor History of exploratory laparotomy with small bowel resection and tumor resection History of atrial fibrillation Weight loss with severe protein malnutrition PICC line placement and will start on TPN for supplementary nutrition. Oncology consult for possible tumor recurrence General surgery consult NPO Continue IV fluids Serial abdominal exams Baseline admission labs Telemetry if patient has symptomatic palpitations Metoprolol as needed for target heart rate less than 110 for his history of atrial fibrillation Lovenox for DVT prophylaxis Protonix IV GI prophylaxis NPO CODE STATUS full Discussed with RN and SW Disposition inpatient management as above DPOA: History of Present Illness History of Present Illness 55-year-old male with past medical history of neuroendocrine resection in August from an exploratory laparotomy with small bowel resection who comes in with worsening abdominal pain ever since surgery in August. Patient describes his pain is gotten to the point where he sees his stomach distend and also make large gurgling noises audible without a stethoscope. Patient does endorse mild nausea but no active vomiting. He does have very loose bowel movements at least 2-3 times per day. Patient has not started any chemoradiation treatments. He denies any fevers, chest pain, hematuria, bloody stools or palpitations or syncope. No loss of appetite. He does endorse weight loss of about 40 pounds since the time of his surgery. Patient was sent as a direct admit from his PCP Dr. Reed after a CT abdomen was done showing small bowel obstruction. Patient is admitted for further care and further evaluation by general surgery and oncology 03/16/2022 No acute events overnight. Patient seen examined bedside. Still having abdominal pain and cramps. No bowel movements. Pending definitive plan from surgery and oncology. Patient's chart, labs, images were reviewed and discussed with RN 03/17/2022 No acute events overnight. Patient seen examined bedside. PICC line placed for TPN. No nausea vomiting episodes. Pain improved after not eating. Patient's chart, labs, images were reviewed and discussed with RN 03/10/2022 No acute events overnight. Patient seen examined bedside. TPN started through PICC line. Patient's symptoms improved after bowel rest. Patient will need home health planning for TPN infusion. Unknown timing for definitive procedures. Patient will need outpatient PET scan per oncology per oncology recs: -Consider adding octreotide/SSA for symptom and disease control if dotatate PET positive. -Would favor reevaluation with surgeon for laparoscopic and adhesiolysis if dotatate PET negative Vitals/I&O Vitals/I&O: Vital Signs Date Time Temp Pulse Resp B/P (MAP) Pulse Ox O2 Delivery O2 Flow Rate FiO2 03/18/22 11:00 97.5 66 18 97/57 (70) 96 Room Air 97.5 I & O 03/17/22 03/17/22 03/18/22 15:00 23:00 07:00 Output Total 600 ml Balance -600 ml Physical Exam General: Alert, Oriented X3 Heart: Regular rate, Normal S1 Lungs: Clear Abdomen: Soft, No tenderness Extremities: No clubbing, No cyanosis Skin: No significant lesion Labs Labs: Laboratory Tests Test 03/18/22 04:38 White Blood Count 5.0 x10^3/uL (4.0-11.0) Red Blood Count 3.70 x10^6/uL (4.30-5.70) Hemoglobin 10.6 g/dL (13.0-17.5) Hematocrit 32.5 % (39.0-53.0) Mean Corpuscular Volume 88 fL (79-100) Mean Corpuscular Hemoglobin 29 pg (25-35) Mean Corpuscular Hemoglobin Concent 33 g/dL (31-37) Red Cell Distribution Width 20.2 % (11.5-14.5) Platelet Count 309 x10^3/uL (140-400) Neutrophils (%) (Auto) 68 % (31-73) Lymphocytes (%) (Auto) 18 % (24-48) Monocytes (%) (Auto) 12 % (0-9) Eosinophils (%) (Auto) 2 % (0-3) Basophils (%) (Auto) 1 % (0-3) Neutrophils # (Auto) 3.4 x10^3/uL (1.8-7.7) Lymphocytes # (Auto) 0.9 x10^3/uL (1.0-4.8) Monocytes # (Auto) 0.6 x10^3/uL (0.0-1.1) Eosinophils # (Auto) 0.1 x10^3/uL (0.0-0.7) Basophils # (Auto) 0.0 x10^3/uL (0.0-0.2) Sodium Level 141 mmol/L (136-145) Potassium Level 3.9 mmol/L (3.5-5.1) Chloride Level 114 mmol/L (98-107) Carbon Dioxide Level 24 mmol/L (21-32) Anion Gap 3 (6-14) Blood Urea Nitrogen 12 mg/dL (8-26) Creatinine 0.6 mg/dL (0.7-1.3) Estimated GFR (Cockcroft-Gault) 139.9 Glucose Level 152 mg/dL (70-99) Calcium Level 6.6 mg/dL (8.5-10.1) Magnesium Level 1.9 mg/dL (1.8-2.4) Comment Review of Relevant I have reviewed the following items anna marie (where applicable) has been applied. Medications: Current Medications Medications (Trade) Dose Ordered Sig/Mirta Route PRN Reason Start Time Stop Time Status Last Admin Dose Admin Sodium Chloride 90 meq/Potassium Acetate 50 meq/ Potassium Phosphate 13.6 mmol/Magnesium Sulfate 10 meq/ Multivitamins 10 ml/Zinc/Copper/ Manganese/ Selenium 1 ml/ Total Parenteral Nutrition/Amino Acids/Dextrose/ Fat Emulsion Intravenous 1,512 ml @ 63 mls/hr TPN CONT IV 03/17/22 22:00 03/18/22 21:59 03/17/22 21:53 Sodium Chloride 1,000 ml @ 50 mls/hr Q20H IV 03/18/22 09:30 03/18/22 11:44 Justifications for Admission Other Justification Abdominal pain due to small bowel obstruction MARIFER CUEVAS MD March 18, 2022 13:25
[2022-03-18 15:00] VITALS: BP 98/60
[2022-03-18 19:00] VITALS: BP 92/56
[2022-03-18] MEDS: ENOXAPARIN 40 MG/0.4 ML SYRINGE. SQ SCH (21:17)
[2022-03-18] MEDS ORDERED: [UNRECOGNIZED DRUG - OTHER] IV SCH (22:00)
[2022-03-18] MEDS ORDERED: DEXTROSE 70% IV SCH (22:00)
[2022-03-18] MEDS ORDERED: TOTAL PARENTERAL NUTRITION IV SCH (22:00)
[2022-03-18] MEDS ORDERED: AMINO ACID IV SCH (22:00)
[2022-03-18 23:00] VITALS: BP 97/55
[2022-03-19 03:00] VITALS: BP 91/57
[2022-03-19] MEDS: IV 1/2 NORMAL SALINE 1,000 ML IV SCH (06:03)
[2022-03-19 06:21] LABS: CALCIUM 6.7 mg/dL (8.5-10.1)
[2022-03-19 06:22] LABS: CREATININE 0.5 mg/dL (0.7-1.3); GFR 172.6
[2022-03-19 06:23] LABS: POTASSIUM 3.7 mmol/L (3.5-5.1)
[2022-03-19 07:00] VITALS: BP 90/57
[2022-03-19] MEDS: PANTOPRAZOLE IV PUSH 40 MG VIAL. IVP SCH (08:33)
[2022-03-19 11:00] VITALS: BP 96/58
--- NOTE | 2022-03-19 11:02 | PDOC ---
[facility] [facility] PROGRESS NOTE Date of Service DOS: DATE: 03/19/22 TIME: 11:01 Chief Complaint Chief Complaint Assessment/Plan Acute abdominal pain secondary to partial SBO, possible adhesions versus tumor recurrence History of neuroendocrine small bowel tumor History of exploratory laparotomy with small bowel resection and tumor resection History of atrial fibrillation Weight loss with severe protein malnutrition PICC line placement and will start on TPN for supplementary nutrition. Oncology consult for possible tumor recurrence General surgery consult NPO Continue IV fluids Serial abdominal exams Baseline admission labs Telemetry if patient has symptomatic palpitations Metoprolol as needed for target heart rate less than 110 for his history of atrial fibrillation Lovenox for DVT prophylaxis Protonix IV GI prophylaxis NPO CODE STATUS full Discussed with RN and SW Disposition inpatient management as above DPOA: History of Present Illness History of Present Illness 55-year-old male with past medical history of neuroendocrine resection in August from an exploratory laparotomy with small bowel resection who comes in with worsening abdominal pain ever since surgery in August. Patient describes his pain is gotten to the point where he sees his stomach distend and also make large gurgling noises audible without a stethoscope. Patient does endorse mild nausea but no active vomiting. He does have very loose bowel movements at least 2-3 times per day. Patient has not started any chemoradiation treatments. He denies any fevers, chest pain, hematuria, bloody stools or palpitations or syncope. No loss of appetite. He does endorse weight loss of about 40 pounds since the time of his surgery. Patient was sent as a direct admit from his PCP Dr. Reed after a CT abdomen was done showing small bowel obstruction. Patient is admitted for further care and further evaluation by general surgery and oncology 03/16/2022 No acute events overnight. Patient seen examined bedside. Still having abdominal pain and cramps. No bowel movements. Pending definitive plan from surgery and oncology. Patient's chart, labs, images were reviewed and discussed with RN 03/17/2022 No acute events overnight. Patient seen examined bedside. PICC line placed for TPN. No nausea vomiting episodes. Pain improved after not eating. Patient's chart, labs, images were reviewed and discussed with RN 03/18/2022 No acute events overnight. Patient seen examined bedside. TPN started through PICC line. Patient's symptoms improved after bowel rest. Patient will need home health planning for TPN infusion. Unknown timing for definitive procedures. Patient will need outpatient PET scan per oncology per oncology recs: -Consider adding octreotide/SSA for symptom and disease control if dotatate PET positive. -Would favor reevaluation with surgeon for laparoscopic and adhesiolysis if dotatate PET negative 03/19/2022 No acute events overnight. Patient seen ambulating to the hallway with IV pole and TPN running. Symptomatically improved. We will continue with TPN and gustavo guzman need outpatient infusion therapy for TPN. Patient's chart, labs, images were reviewed and discussed with RN Vitals/I&O Vitals/I&O: Vital Signs Date Time Temp Pulse Resp B/P (MAP) Pulse Ox O2 Delivery O2 Flow Rate FiO2 03/19/22 03:00 97.8 65 18 91/57 (68) 98 Room Air 97.8 I & O 03/18/22 03/18/22 03/19/22 14:59 22:59 06:59 Intake Total 2954 ml Output Total 400 ml 400 ml Balance -400 ml 2554 ml Physical Exam General: Alert, Oriented X3 Heart: Regular rate, Normal S1 Lungs: Clear Abdomen: Soft, No tenderness Extremities: No clubbing, No cyanosis Skin: No significant lesion Labs Labs: Laboratory Tests Test 03/19/22 04:26 Sodium Level 141 mmol/L (136-145) Potassium Level 3.7 mmol/L (3.5-5.1) Chloride Level 113 mmol/L (98-107) Carbon Dioxide Level 25 mmol/L (21-32) Anion Gap 3 (6-14) Blood Urea Nitrogen 8 mg/dL (8-26) Creatinine 0.5 mg/dL (0.7-1.3) Estimated GFR (Cockcroft-Gault) 172.6 Glucose Level 91 mg/dL (70-99) Calcium Level 6.7 mg/dL (8.5-10.1) Phosphorus Level 2.0 mg/dL (2.6-4.7) Magnesium Level 2.0 mg/dL (1.8-2.4) Triglycerides Level 73 mg/dL (0-150) Comment Review of Relevant I have reviewed the following items anna marie (where applicable) has been applied. Medications: Current Medications Medications (Trade) Dose Ordered Sig/Mirta Route PRN Reason Start Time Stop Time Status Last Admin Dose Admin Sodium Chloride 90 meq/Potassium Acetate 50 meq/ Potassium Phosphate 13.6 mmol/Magnesium Sulfate 10 meq/ Multivitamins 10 ml/Zinc/Copper/ Manganese/ Selenium 1 ml/ Total Parenteral Nutrition/Amino Acids/Dextrose/ Fat Emulsion Intravenous 1,512 ml @ 63 mls/hr TPN CONT IV 03/18/22 22:00 03/19/22 21:59 03/18/22 21:54 Justifications for Admission Other Justification Abdominal pain due to small bowel obstruction MARIFER CUEVAS MD March 19, 2022 11:02
--- NOTE | 2022-03-19 12:09 | PDOC ---
PROGRESS NOTES Date of Service DATE: 03/19/22 TIME: 12:08 Subjective Subjective doing ok, some mild crampy discomfort Objective Objective Vital Signs Date Time Temp Pulse Resp B/P (MAP) Pulse Ox O2 Delivery O2 Flow Rate FiO2 03/19/22 11:00 97.7 65 18 96/58 (71) 96 Room Air 97.7 Intake and Output 03/19/22 07:00 Intake Total 2954 ml Output Total 800 ml Balance 2154 ml Blood Product IV Normal Saline Flush 2954 ml Output Urine Total 800 ml Physical Exam Abdomen: Soft, No tenderness Heart: Regular rate Extremities: No clubbing General: Alert, Oriented X3, Cooperative Neuro: Normal speech Assessment Assessment SBO Plan Plan of Care Continue bowel rest, tpn Comment Review of Relevant I have reviewed the following items anna marie (where applicable) has been applied. Labs Laboratory Tests Test 03/18/22 04:38 03/19/22 04:26 White Blood Count 5.0 x10^3/uL (4.0-11.0) Red Blood Count 3.70 x10^6/uL (4.30-5.70) Hemoglobin 10.6 g/dL (13.0-17.5) Hematocrit 32.5 % (39.0-53.0) Mean Corpuscular Volume 88 fL (79-100) Mean Corpuscular Hemoglobin 29 pg (25-35) Mean Corpuscular Hemoglobin Concent 33 g/dL (31-37) Red Cell Distribution Width 20.2 % (11.5-14.5) Platelet Count 309 x10^3/uL (140-400) Neutrophils (%) (Auto) 68 % (31-73) Lymphocytes (%) (Auto) 18 % (24-48) Monocytes (%) (Auto) 12 % (0-9) Eosinophils (%) (Auto) 2 % (0-3) Basophils (%) (Auto) 1 % (0-3) Neutrophils # (Auto) 3.4 x10^3/uL (1.8-7.7) Lymphocytes # (Auto) 0.9 x10^3/uL (1.0-4.8) Monocytes # (Auto) 0.6 x10^3/uL (0.0-1.1) Eosinophils # (Auto) 0.1 x10^3/uL (0.0-0.7) Basophils # (Auto) 0.0 x10^3/uL (0.0-0.2) Sodium Level 141 mmol/L (136-145) 141 mmol/L (136-145) Potassium Level 3.9 mmol/L (3.5-5.1) 3.7 mmol/L (3.5-5.1) Chloride Level 114 mmol/L (98-107) 113 mmol/L (98-107) Carbon Dioxide Level 24 mmol/L (21-32) 25 mmol/L (21-32) Anion Gap 3 (6-14) 3 (6-14) Blood Urea Nitrogen 12 mg/dL (8-26) 8 mg/dL (8-26) Creatinine 0.6 mg/dL (0.7-1.3) 0.5 mg/dL (0.7-1.3) Estimated GFR (Cockcroft-Gault) 139.9 172.6 Glucose Level 152 mg/dL (70-99) 91 mg/dL (70-99) Calcium Level 6.6 mg/dL (8.5-10.1) 6.7 mg/dL (8.5-10.1) Magnesium Level 1.9 mg/dL (1.8-2.4) 2.0 mg/dL (1.8-2.4) Phosphorus Level 2.0 mg/dL (2.6-4.7) Triglycerides Level 73 mg/dL (0-150) Laboratory Tests Test 03/19/22 04:26 Sodium Level 141 mmol/L (136-145) Potassium Level 3.7 mmol/L (3.5-5.1) Chloride Level 113 mmol/L (98-107) Carbon Dioxide Level 25 mmol/L (21-32) Anion Gap 3 (6-14) Blood Urea Nitrogen 8 mg/dL (8-26) Creatinine 0.5 mg/dL (0.7-1.3) Estimated GFR (Cockcroft-Gault) 172.6 Glucose Level 91 mg/dL (70-99) Calcium Level 6.7 mg/dL (8.5-10.1) Phosphorus Level 2.0 mg/dL (2.6-4.7) Magnesium Level 2.0 mg/dL (1.8-2.4) Triglycerides Level 73 mg/dL (0-150) Medications Current Medications Sennosides (Senna) 17.2 mg PRN BID PRN PO CONSTIPATION; Start 03/15/22 at 14:15 Docusate Sodium (Colace) 100 mg PRN DAILY PRN PO HARD STOOLS; Start 03/15/22 at 14:15 Ondansetron HCl (Zofran) 4 mg PRN Q6HRS PRN IVP NAUSEA/VOMITING, 1st CHOICE; Start 03/15/22 at 14:15 Dextrose (Dextrose 50%-Water Syringe) 12.5 gm PRN Q15MIN PRN IV SEE COMMENTS; Start 03/15/22 at 14:15 Sodium Chloride 1,000 ml @ 100 mls/hr Q10H IV Last administered on 03/17/22at 07:00; Start 03/15/22 at 15:00; Stop 03/17/22 at 14:32; Status DC Acetaminophen (Tylenol) 650 mg PRN Q4HRS PRN PO TEMP OVER 100.4F OR MILD PAIN; Start 03/15/22 at 14:15 Lorazepam (Ativan) 0.5 mg PRN Q6HRS PRN PO ANXIETY / AGITATION; Start 03/15/22 at 14:15 Lorazepam (Ativan Inj) 0.25 mg PRN Q4HRS PRN IV ANXIETY / AGITATION; Start 03/15/22 at 14:15 Enoxaparin Sodium (Lovenox 40mg Syringe) 40 mg Q24H SQ Last administered on 03/18/22at 21:17; Start 03/15/22 at 21:00 Pantoprazole Sodium (PROTONIX VIAL for IV PUSH) 40 mg DAILYAC IVP Last administered on 03/19/22at 08:33; Start 03/15/22 at 15:00 Morphine Sulfate (Morphine Sulfate) 1 mg PRN Q1HR PRN IV PAIN; Start 03/15/22 at 14:15 Morphine Sulfate (Morphine Sulfate) 2 mg PRN Q2HR PRN IVP SEVERE PAIN 7-10; Start 03/15/22 at 14:15; Stop 03/16/22 at 14:14; Status DC Prochlorperazine Edisylate (Compazine) 10 mg PRN Q6HRS PRN IV NAUSEA/VOMITING, 2nd CHOICE; Start 03/15/22 at 14:15 Diphenhydramine HCl (Benadryl) 25 mg PRN Q6HRS PRN IVP ITCHING; Start 03/15/22 at 14:15 Diphenhydramine HCl (Benadryl) 25 mg PRN Q6HRS PRN PO ITCHING; Start 03/15/22 at 14:15 Diphenhydramine HCl (Benadryl) 25 mg PRN QHS PRN PO INSOMNIA, 1st CHOICE Last administered on 03/15/22at 20:25; Start 03/15/22 at 14:15 Zolpidem Tartrate (Ambien) 2.5 mg PRN QHS PRN PO INSOMNIA, 2nd CHOICE; Start 03/15/22 at 14:15 Metoprolol Tartrate (Lopressor Vial) 5 mg PRN Q5MIN PRN IVP TACHYCARDIA; Start 03/15/22 at 14:30 Info (Tpn Per Pharmacy) 1 each PRN DAILY PRN MC SEE COMMENTS Last administered on 03/16/22at 13:01; Start 03/16/22 at 10:00; Stop 03/16/22 at 13:09; Status DC Sodium Chloride 90 meq/Potassium Acetate 50 meq/ Potassium Phosphate 13.6 mmol/Magnesium Sulfate 10 meq/ Multivitamins 10 ml/Zinc/Copper/ Manganese/ Selenium 1 ml/ Total Parenteral Nutrition/Amino Acids/Dextrose/ Fat Emulsion Intravenous 1,512 ml @ 63 mls/hr TPN CONT IV ; Start 03/16/22 at 22:00; Stop 03/17/22 at 21:59; Status Cancel Info (Tpn Per Pharmacy) 1 each PRN DAILY PRN MC SEE COMMENTS Last administered on 03/18/22at 10:57; Start 03/17/22 at 13:15 Lidocaine HCl (Buffered Lidocaine 1%) 3 ml STK-MED ONCE .ROUTE ; Start 03/17/22 at 08:00; Stop 03/17/22 at 08:01; Status DC Lidocaine HCl (Buffered Lidocaine 1%) 6 ml 1X ONCE INJ ; Start 03/17/22 at 08:30; Stop 03/17/22 at 08:31; Status DC Amino Acids/ Electrolytes/ Dextrose 1,000 ml @ 80 mls/hr [id number] IV Last administered on 03/17/22at 11:24; Start 03/17/22 at 10:15; Stop 03/17/22 at 21:59; Status DC Sodium Chloride 90 meq/Potassium Acetate 50 meq/ Potassium Phosphate 13.6 mmol/Magnesium Sulfate 10 meq/ Multivitamins 10 ml/Zinc/Copper/ Manganese/ Selenium 1 ml/ Total Parenteral Nutrition/Amino Acids/Dextrose/ Fat Emulsion Intravenous 1,512 ml @ 63 mls/hr TPN CONT IV Last administered on 03/17/22at 21:53; Start 03/17/22 at 22:00; Stop 03/18/22 at 21:59; Status DC Sodium Chloride 1,000 ml @ 50 mls/hr Q20H IV Last administered on 03/19/22at 06:03; Start 03/18/22 at 09:30 Sodium Chloride 90 meq/Potassium Acetate 50 meq/ Potassium Phosphate 13.6 mmol/Magnesium Sulfate 10 meq/ Multivitamins 10 ml/Zinc/Copper/ Manganese/ Selenium 1 ml/ Total Parenteral Nutrition/Amino Acids/Dextrose/ Fat Emulsion Intravenous 1,512 ml @ 63 mls/hr TPN CONT IV Last administered on 03/18/22at 21:54; Start 03/18/22 at 22:00; Stop 03/19/22 at 21:59 Active Scripts Active Reported Reglan (Metoclopramide Hcl) 5 Mg Tablet 1 Tab PO TIDAC 20 Days 1 hour prior to procedure Dicyclomine Hcl 10 Mg Capsule 1 Cap PO TIDWMEALS Vitals/I & O Vital Sign - Last 24 Hours 03/18/22 03/18/22 03/18/22 03/18/22 15:00 19:00 20:00 23:00 Temp 98.1 98.2 98.1 98.2 Pulse 67 68 70 Resp 18 18 18 B/P (MAP) 98/60 (73) 92/56 (68) 97/55 (69) Pulse Ox 97 96 96 O2 Delivery Room Air Room Air Room Air Room Air 03/19/22 03/19/22 03/19/22 03:00 07:00 11:00 Temp 97.8 97.7 97.7 97.8 97.7 97.7 Pulse 65 62 65 Resp 18 18 18 B/P (MAP) 91/57 (68) 90/57 (68) 96/58 (71) Pulse Ox 98 97 96 O2 Delivery Room Air Room Air Room Air Intake and Output 5/28/22 5/28/22 5/29/22 15:00 23:00 07:00 Intake Total 2954 ml Output Total 400 ml 400 ml Balance -400 ml 2554 ml Justifications for Admission Other Justification Abdominal pain due to small bowel obstruction Nutrition Consultation Dietary Evaluation: Recommendations by RD: Dietary education by RD, PPN/TPN Comments: REC TPN: 280 g dextrose, 85 g AA, 35 g lipid Expected Outcomes/Goals: to meet 70-75% energy needs via TPN Interpretation of weight loss: >10% in 6 months Malnutrition Findings: Food and Nutrition Intake (Sev: <50% est energy req 5days Body Fat Depletion (Non Severe: Mild Depletion Weight Status: Underweight TAVO TRIVEDI MD March 19, 2022 12:09
[2022-03-19] MEDS: TPN PER PHARMACY MC PRN (12:12)
--- NOTE | 2022-03-19 12:14 | NUR ---
Pharmacy TPN Dosing Note S: LILIANA CHAVIRA is a 56 year old M Currently receiving Central Continuous TPN started 03/16/22 B:Pertinent PMH: SBO, NPO Height: 5 feet, 10 inches Weight: 71.5 kg Current diet: LABS: Sodium: 141 Potassium: 3.7 Chloride: 113 Calcium: 6.7 Corrected Calcium: 9.02 Magnesium: 2.0 CO2: 25 SCr: 0.5 Glucose: 91 Albumin: 1.1 AST: 16 ALT: 13 TPN FORMULA: TPN TYPE: Central Continuous AMINO ACIDS: 85 gm DEXTROSE: 280 gm LIPIDS: 35 gm SODIUM CHLORIDE: 90 mEq SODIUM ACETATE: -- mEq SODIUM PHOSPHATE: -- mmol POTASSIUM CHLORIDE: -- mEq POTASSIUM ACETATE: 50 mEq POTASSIUM PHOSPHATE: 20 mmol MAGNESIUM: 10 mEq CALCIUM: -- mEq INSULIN: units MULTIPLE VITAMIN: 10 ml TRACE ELEMENTS: 1 ml(s) TPN PLAN: Potassium Phosphate increased to 20 mMol due to low phosphate level. R: Change TPN as outlined above. Will monitor electrolytes, glucose, and tolerance to TPN. Mandeep Diehl [facility], 03/19/22 [id number]
[2022-03-19 15:00] VITALS: BP 90/55
[2022-03-19 19:00] VITALS: BP 94/59
[2022-03-19] MEDS: ENOXAPARIN 40 MG/0.4 ML SYRINGE. SQ SCH (20:52)
[2022-03-19] MEDS ORDERED: TOTAL PARENTERAL NUTRITION IV SCH (22:00)
[2022-03-19] MEDS ORDERED: DEXTROSE 70% IV SCH (22:00)
[2022-03-19] MEDS ORDERED: AMINO ACID IV SCH (22:00)
[2022-03-19] MEDS ORDERED: [UNRECOGNIZED DRUG - OTHER] IV SCH (22:00)
[2022-03-19 23:00] VITALS: BP 94/54
[2022-03-20] MEDS: IV 1/2 NORMAL SALINE 1,000 ML IV SCH (04:01)
[2022-03-20 05:25] LABS: CALCIUM 6.9 mg/dL (8.5-10.1); CREATININE 0.5 mg/dL (0.7-1.3); GFR 172.6; PHOSPHORUS 2.6 mg/dL (2.6-4.7); POTASSIUM 4.4 mmol/L (3.5-5.1)
[2022-03-20 07:00] VITALS: BP 100/64
[2022-03-20] MEDS: PANTOPRAZOLE IV PUSH 40 MG VIAL. IVP SCH (08:41)
[2022-03-20 11:07] VITALS: BP 98/65
[2022-03-20] MEDS: TPN PER PHARMACY MC PRN (11:19)
--- NOTE | 2022-03-20 11:22 | NUR ---
Pharmacy TPN Dosing Note S: LILIANA CHAVIRA is a 56 year old M Currently receiving Central Continuous TPN started 03/16/22 B:Pertinent PMH: SBO, NPO Height: 5 feet, 10 inches Weight: 71.5 kg Current diet: LABS: Sodium: 142 Potassium: 4.4 Chloride: 113 Calcium: 6.9 Corrected Calcium: 9.22 Magnesium: 2.0 CO2: 28 SCr: 0.5 Glucose: 91 Albumin: 1.1 AST: 16 ALT: 13 TPN FORMULA: TPN TYPE: Central Continuous AMINO ACIDS: 85 gm DEXTROSE: 280 gm LIPIDS: 35 gm SODIUM CHLORIDE: 90 mEq POTASSIUM ACETATE: 50 mEq POTASSIUM PHOSPHATE: 20 mmol MAGNESIUM: 10 mEq MULTIPLE VITAMIN: 10 ml TRACE ELEMENTS: 1 ml(s) TPN PLAN: Continue same TPN. R: Continue TPN. Will monitor electrolytes, glucose, and tolerance to TPN. Mandeep Diehl [facility], 03/20/22 [id number]
--- NOTE | 2022-03-20 11:44 | PDOC ---
[facility] PROGRESS NOTE Date of Service DOS: DATE: 03/20/22 TIME: 11:44 Chief Complaint Chief Complaint Assessment/Plan Acute abdominal pain secondary to partial SBO, possible adhesions versus tumor recurrence History of neuroendocrine small bowel tumor History of exploratory laparotomy with small bowel resection and tumor resection History of atrial fibrillation Weight loss with severe protein malnutrition PICC line placement and will start on TPN for supplementary nutrition. Oncology consult for possible tumor recurrence General surgery consult NPO Continue IV fluids Serial abdominal exams Baseline admission labs Telemetry if patient has symptomatic palpitations Metoprolol as needed for target heart rate less than 110 for his history of atrial fibrillation Lovenox for DVT prophylaxis Protonix IV GI prophylaxis NPO CODE STATUS full Discussed with RN and SW Disposition inpatient management as above DPOA: History of Present Illness History of Present Illness 55-year-old male with past medical history of neuroendocrine resection in August from an exploratory laparotomy with small bowel resection who comes in with worsening abdominal pain ever since surgery in August. Patient describes his pain is gotten to the point where he sees his stomach distend and also make large gurgling noises audible without a stethoscope. Patient does endorse mild nausea but no active vomiting. He does have very loose bowel movements at least 2-3 times per day. Patient has not started any chemoradiation treatments. He denies any fevers, chest pain, hematuria, bloody stools or palpitations or syncope. No loss of appetite. He does endorse weight loss of about 40 pounds since the time of his surgery. Patient was sent as a direct admit from his PCP Dr. Reed after a CT abdomen was done showing small bowel obstruction. Patient is admitted for further care and further evaluation by general surgery and oncology 03/16/2022 No acute events overnight. Patient seen examined bedside. Still having abdominal pain and cramps. No bowel movements. Pending definitive plan from surgery and oncology. Patient's chart, labs, images were reviewed and discussed with RN 03/17/2022 No acute events overnight. Patient seen examined bedside. PICC line placed for TPN. No nausea vomiting episodes. Pain improved after not eating. Patient's chart, labs, images were reviewed and discussed with RN 03/18/2022 No acute events overnight. Patient seen examined bedside. TPN started through PICC line. Patient's symptoms improved after bowel rest. Patient will need home health planning for TPN infusion. Unknown timing for definitive procedures. Patient will need outpatient PET scan per oncology per oncology recs: -Consider adding octreotide/SSA for symptom and disease control if dotatate PET positive. -Would favor reevaluation with surgeon for laparoscopic and adhesiolysis if dotatate PET negative 03/19/2022 No acute events overnight. Patient seen ambulating to the hallway with IV pole and TPN running. Symptomatically improved. We will continue with TPN and gustavo guzman need outpatient infusion therapy for TPN. Patient's chart, labs, images were reviewed and discussed with RN 03/20/2022 No acute events overnight. Patient seen examined bedside. Tolerating TPN and symptoms have improved. Passing flatus. No nausea vomiting. Patient's chart, labs, images were reviewed and discussed with RN Vitals/I&O Vitals/I&O: Vital Signs Date Time Temp Pulse Resp B/P (MAP) Pulse Ox O2 Delivery O2 Flow Rate FiO2 03/20/22 11:07 97.9 67 18 98/65 (76) 95 Room Air 97.9 Physical Exam General: Alert, Oriented X3, Cooperative Heart: Regular rate Lungs: Clear Abdomen: Soft, No tenderness Extremities: No clubbing Skin: No significant lesion Labs Labs: Laboratory Tests Test 03/20/22 04:45 Sodium Level 142 mmol/L (136-145) Potassium Level 4.4 mmol/L (3.5-5.1) Chloride Level 113 mmol/L (98-107) Carbon Dioxide Level 28 mmol/L (21-32) Anion Gap 1 (6-14) Blood Urea Nitrogen 8 mg/dL (8-26) Creatinine 0.5 mg/dL (0.7-1.3) Estimated GFR (Cockcroft-Gault) 172.6 Glucose Level 91 mg/dL (70-99) Calcium Level 6.9 mg/dL (8.5-10.1) Phosphorus Level 2.6 mg/dL (2.6-4.7) Magnesium Level 2.0 mg/dL (1.8-2.4) Comment Review of Relevant I have reviewed the following items anna marie (where applicable) has been applied. Medications: Current Medications Medications (Trade) Dose Ordered Sig/Mirta Route PRN Reason Start Time Stop Time Status Last Admin Dose Admin Sodium Chloride 90 meq/Potassium Acetate 50 meq/ Potassium Phosphate 20 mmol/ Magnesium Sulfate 10 meq/ Multivitamins 10 ml/Zinc/Copper/ Manganese/ Selenium 1 ml/ Total Parenteral Nutrition/Amino Acids/Dextrose/ Fat Emulsion Intravenous 1,512 ml @ 63 mls/hr TPN CONT IV 03/19/22 22:00 03/20/22 21:59 03/19/22 21:23 Justifications for Admission Other Justification Abdominal pain due to small bowel obstruction MARIFER CUEVAS MD March 20, 2022 11:44
--- NOTE | 2022-03-20 13:39 | PDOC ---
PROGRESS NOTES Date of Service DATE: 03/20/22 TIME: 13:38 Subjective Subjective feeling "pretty good", passing gas Objective Objective Vital Signs Date Time Temp Pulse Resp B/P (MAP) Pulse Ox O2 Delivery O2 Flow Rate FiO2 03/20/22 11:07 97.9 67 18 98/65 (76) 95 Room Air 97.9 Intake and Output 03/20/22 07:00 # Voids 4 Physical Exam Abdomen: Soft, No tenderness Extremities: No clubbing, No cyanosis General: Alert, Oriented X3 Lungs: Clear to auscultation Neuro: Normal speech Psych/Mental Status: Mental status NL Plan Plan of Care Continue TPN, bowel rest Comment Review of Relevant I have reviewed the following items anna marie (where applicable) has been applied. Labs Laboratory Tests Test 03/19/22 04:26 03/20/22 04:45 Sodium Level 141 mmol/L (136-145) 142 mmol/L (136-145) Potassium Level 3.7 mmol/L (3.5-5.1) 4.4 mmol/L (3.5-5.1) Chloride Level 113 mmol/L (98-107) 113 mmol/L (98-107) Carbon Dioxide Level 25 mmol/L (21-32) 28 mmol/L (21-32) Anion Gap 3 (6-14) 1 (6-14) Blood Urea Nitrogen 8 mg/dL (8-26) 8 mg/dL (8-26) Creatinine 0.5 mg/dL (0.7-1.3) 0.5 mg/dL (0.7-1.3) Estimated GFR (Cockcroft-Gault) 172.6 172.6 Glucose Level 91 mg/dL (70-99) 91 mg/dL (70-99) Calcium Level 6.7 mg/dL (8.5-10.1) 6.9 mg/dL (8.5-10.1) Phosphorus Level 2.0 mg/dL (2.6-4.7) 2.6 mg/dL (2.6-4.7) Magnesium Level 2.0 mg/dL (1.8-2.4) 2.0 mg/dL (1.8-2.4) Triglycerides Level 73 mg/dL (0-150) Laboratory Tests Test 03/20/22 04:45 Sodium Level 142 mmol/L (136-145) Potassium Level 4.4 mmol/L (3.5-5.1) Chloride Level 113 mmol/L (98-107) Carbon Dioxide Level 28 mmol/L (21-32) Anion Gap 1 (6-14) Blood Urea Nitrogen 8 mg/dL (8-26) Creatinine 0.5 mg/dL (0.7-1.3) Estimated GFR (Cockcroft-Gault) 172.6 Glucose Level 91 mg/dL (70-99) Calcium Level 6.9 mg/dL (8.5-10.1) Phosphorus Level 2.6 mg/dL (2.6-4.7) Magnesium Level 2.0 mg/dL (1.8-2.4) Medications Current Medications Sennosides (Senna) 17.2 mg PRN BID PRN PO CONSTIPATION; Start 03/15/22 at 14:15 Docusate Sodium (Colace) 100 mg PRN DAILY PRN PO HARD STOOLS; Start 03/15/22 at 14:15 Ondansetron HCl (Zofran) 4 mg PRN Q6HRS PRN IVP NAUSEA/VOMITING, 1st CHOICE; Start 03/15/22 at 14:15 Dextrose (Dextrose 50%-Water Syringe) 12.5 gm PRN Q15MIN PRN IV SEE COMMENTS; Start 03/15/22 at 14:15 Sodium Chloride 1,000 ml @ 100 mls/hr Q10H IV Last administered on 03/17/22at 07:00; Start 03/15/22 at 15:00; Stop 03/17/22 at 14:32; Status DC Acetaminophen (Tylenol) 650 mg PRN Q4HRS PRN PO TEMP OVER 100.4F OR MILD PAIN; Start 03/15/22 at 14:15 Lorazepam (Ativan) 0.5 mg PRN Q6HRS PRN PO ANXIETY / AGITATION; Start 03/15/22 at 14:15 Lorazepam (Ativan Inj) 0.25 mg PRN Q4HRS PRN IV ANXIETY / AGITATION; Start 03/15/22 at 14:15 Enoxaparin Sodium (Lovenox 40mg Syringe) 40 mg Q24H SQ Last administered on 03/19/22at 20:52; Start 03/15/22 at 21:00 Pantoprazole Sodium (PROTONIX VIAL for IV PUSH) 40 mg DAILYAC IVP Last administered on 03/20/22at 08:41; Start 03/15/22 at 15:00 Morphine Sulfate (Morphine Sulfate) 1 mg PRN Q1HR PRN IV PAIN; Start 03/15/22 at 14:15 Morphine Sulfate (Morphine Sulfate) 2 mg PRN Q2HR PRN IVP SEVERE PAIN 7-10; Start 03/15/22 at 14:15; Stop 03/16/22 at 14:14; Status DC Prochlorperazine Edisylate (Compazine) 10 mg PRN Q6HRS PRN IV NAUSEA/VOMITING, 2nd CHOICE; Start 03/15/22 at 14:15 Diphenhydramine HCl (Benadryl) 25 mg PRN Q6HRS PRN IVP ITCHING; Start 03/15/22 at 14:15 Diphenhydramine HCl (Benadryl) 25 mg PRN Q6HRS PRN PO ITCHING; Start 03/15/22 at 14:15 Diphenhydramine HCl (Benadryl) 25 mg PRN QHS PRN PO INSOMNIA, 1st CHOICE Last administered on 03/15/22at 20:25; Start 03/15/22 at 14:15 Zolpidem Tartrate (Ambien) 2.5 mg PRN QHS PRN PO INSOMNIA, 2nd CHOICE; Start 03/15/22 at 14:15 Metoprolol Tartrate (Lopressor Vial) 5 mg PRN Q5MIN PRN IVP TACHYCARDIA; Start 03/15/22 at 14:30 Info (Tpn Per Pharmacy) 1 each PRN DAILY PRN MC SEE COMMENTS Last administered on 03/16/22at 13:01; Start 03/16/22 at 10:00; Stop 03/16/22 at 13:09; Status DC Sodium Chloride 90 meq/Potassium Acetate 50 meq/ Potassium Phosphate 13.6 mmol/Magnesium Sulfate 10 meq/ Multivitamins 10 ml/Zinc/Copper/ Manganese/ S elenium 1 ml/ Total Parenteral Nutrition/Amino Acids/Dextrose/ Fat Emulsion Intravenous 1,512 ml @ 63 mls/hr TPN CONT IV ; Start 03/16/22 at 22:00; Stop 03/17/22 at 21:59; Status Cancel Info (Tpn Per Pharmacy) 1 each PRN DAILY PRN MC SEE COMMENTS Last administered on 03/20/22at 11:19; Start 03/17/22 at 13:15 Lidocaine HCl (Buffered Lidocaine 1%) 3 ml STK-MED ONCE .ROUTE ; Start 03/17/22 at 08:00; Stop 03/17/22 at 08:01; Status DC Lidocaine HCl (Buffered Lidocaine 1%) 6 ml 1X ONCE INJ ; Start 03/17/22 at 08:30; Stop 03/17/22 at 08:31; Status DC Amino Acids/ Electrolytes/ Dextrose 1,000 ml @ 80 mls/hr [id number] IV Last administered on 03/17/22at 11:24; Start 03/17/22 at 10:15; Stop 03/17/22 at 21:59; Status DC Sodium Chloride 90 meq/Potassium Acetate 50 meq/ Potassium Phosphate 13.6 mmol/Magnesium Sulfate 10 meq/ Multivitamins 10 ml/Zinc/Copper/ Manganese/ Selenium 1 ml/ Total Parenteral Nutrition/Amino Acids/Dextrose/ Fat Emulsion Intravenous 1,512 ml @ 63 mls/hr TPN CONT IV Last administered on 03/17/22at 21:53; Start 03/17/22 at 22:00; Stop 03/18/22 at 21:59; Status DC Sodium Chloride 1,000 ml @ 50 mls/hr Q20H IV Last administered on 03/20/22at 04:01; Start 03/18/22 at 09:30 Sodium Chloride 90 meq/Potassium Acetate 50 meq/ Potassium Phosphate 13.6 m mol/Magnesium Sulfate 10 meq/ Multivitamins 10 ml/Zinc/Copper/ Manganese/ Selenium 1 ml/ Total Parenteral Nutrition/Amino Acids/Dextrose/ Fat Emulsion Intravenous 1,512 ml @ 63 mls/hr TPN CONT IV Last administered on 03/18/22at 21:54; Start 03/18/22 at 22:00; Stop 03/19/22 at 21:59; Status DC Sodium Chloride 90 meq/Potassium Acetate 50 meq/ Potassium Phosphate 20 mmol/ Magnesium Sulfate 10 meq/ Multivitamins 10 ml/Zinc/Copper/ Manganese/ Selenium 1 ml/ Total Parenteral Nutrition/Amino Acids/Dextrose/ Fat Emulsion Intravenous 1,512 ml @ 63 mls/hr TPN CONT IV Last administered on 03/19/22at 21:23; Start 03/19/22 at 22:00; Stop 03/20/22 at 21:59 Sodium Chloride 90 meq/Potassium Acetate 50 meq/ Potassium Phosphate 20 mmol/ Magnesium Sulfate 10 meq/ Multivitamins 10 ml/Zinc/Copper/ Manganese/ Selenium 1 ml/ Total Parenteral Nutrition/Amino Acids/Dextrose/ Fat Emulsion Intravenous 1,512 ml @ 63 mls/hr TPN CONT IV ; Start 03/20/22 at 22:00; Stop 03/21/22 at 21:59 Active Scripts Active Reported Reglan (Metoclopramide Hcl) 5 Mg Tablet 1 Tab PO TIDAC 20 Days 1 hour prior to procedure Dicyclomine Hcl 10 Mg Capsule 1 Cap PO TIDWMEALS Vitals/I & O Vital Sign - Last 24 Hours 03/19/22 03/19/22 03/19/22 03/19/22 15:00 19:00 20:00 23:00 Temp 98.1 98.0 99.1 98.1 98.0 99.1 Pulse 62 60 65 Resp 18 16 16 B/P (MAP) 90/55 (67) 94/59 (71) 94/54 (67) Pulse Ox 97 95 96 O2 Delivery Room Air Room Air Room Air Room Air 03/20/22 03/20/22 03/20/22 07:00 08:00 11:07 Temp 98.0 97.9 98.0 97.9 Pulse 65 67 Resp 20 18 B/P (MAP) 100/64 (76) 98/65 (76) Pulse Ox 96 95 O2 Delivery Room Air Room Air Room Air Justifications for Admission Other Justification Abdominal pain due to small bowel obstruction Nutrition Consultation Dietary Evaluation: Recommendations by RD: Dietary education by RD, PPN/TPN Comments: REC TPN: 280 g dextrose, 85 g AA, 35 g lipid Expected Outcomes/Goals: to meet 70-75% energy needs via TPN Interpretation of weight loss: >10% in 6 months Malnutrition Findings: Food and Nutrition Intake (Sev: <50% est energy req 5days Body Fat Depletion (Non Severe: Mild Depletion Weight Status: Underweight TAVO TRIVEDI MD March 20, 2022 13:39
[2022-03-20 15:00] VITALS: BP 102/65
[2022-03-20 19:00] VITALS: BP 104/64
[2022-03-20] MEDS: ENOXAPARIN 40 MG/0.4 ML SYRINGE. SQ SCH (21:25)
[2022-03-20] MEDS ORDERED: AMINO ACID IV SCH (22:00)
[2022-03-20] MEDS ORDERED: TOTAL PARENTERAL NUTRITION IV SCH (22:00)
[2022-03-20] MEDS ORDERED: DEXTROSE 70% IV SCH (22:00)
[2022-03-20] MEDS ORDERED: [UNRECOGNIZED DRUG - OTHER] IV SCH (22:00)
[2022-03-20 22:55] VITALS: BP 103/63
[2022-03-21] MEDS: IV 1/2 NORMAL SALINE 1,000 ML IV SCH ×2 (00:11→21:29)
[2022-03-21 02:56] VITALS: BP 100/57
[2022-03-21 06:40] LABS: CALCIUM 7.1 mg/dL (8.5-10.1); CREATININE 0.5 mg/dL (0.7-1.3); GFR 172.6; MAGNESIUM 2.1 mg/dL (1.8-2.4); PHOSPHORUS 3.1 mg/dL (2.6-4.7); POTASSIUM 4.2 mmol/L (3.5-5.1)
[2022-03-21 07:00] VITALS: BP 104/66
[2022-03-21] MEDS: PANTOPRAZOLE IV PUSH 40 MG VIAL. IVP SCH (08:59)
[2022-03-21] MEDS: TPN PER PHARMACY MC PRN (10:48)
--- NOTE | 2022-03-21 10:48 | NUR ---
Pharmacy TPN Dosing Note S: LILIANA CHAVIRA is a 56 year old M Currently receiving Central Continuous TPN started 03/16/22 B:Pertinent PMH: SBO, NPO Height: 5 feet, 10 inches Weight: 71.5 kg Current diet: LABS: Sodium: 143 Potassium: 4.2 Chloride: 113 Calcium: 7.1 Corrected Calcium: 9.42 Magnesium: 2.1 CO2: 28 SCr: 0.5 Glucose: 99 Albumin: 1.1 AST: 16 ALT: 13 TPN FORMULA: TPN TYPE: Central Continuous AMINO ACIDS: 85 gm DEXTROSE: 280 gm LIPIDS: 35 gm SODIUM CHLORIDE: 90 mEq SODIUM ACETATE: -- mEq SODIUM PHOSPHATE: -- mmol POTASSIUM CHLORIDE: -- mEq POTASSIUM ACETATE: 50 mEq POTASSIUM PHOSPHATE: 20 mmol MAGNESIUM: 10 mEq CALCIUM: -- mEq INSULIN: units MULTIPLE VITAMIN: 10 ml TRACE ELEMENTS: 1 ml(s) TPN PLAN: No major changes in electrolytes. Continue same TPN. R: Continue TPN Will monitor electrolytes, glucose, and tolerance to TPN. Mandeep Diehl [facility], 03/21/22 1047
--- NOTE | 2022-03-21 10:55 | PDOC ---
MARY LOU WOMACK [employer] TE[employer]ER 03/21/22 1055: SURGICAL PROGRESS NOTE DATE: 03/21/22 TIME: 10:53 Subjective feels symptoms improved having watery stools and gas no nausea ROS: no fevers, chills no SOA, cough no cp, palpations Vital Signs Vital Signs Date Time Temp Pulse Resp B/P (MAP) Pulse Ox O2 Delivery O2 Flow Rate FiO2 03/21/22 07:00 97.8 67 12 104/66 (79) 100 Room Air 97.8 General: Alert, Cooperative, No acute distress HEENT: Atraumatic, Mucous membr. moist/pink Lungs: Clear to auscultation, Normal air movement Heart: Regular rate, Normal S1, Normal S2 Abdomen: Soft, No tenderness Labs Laboratory Tests Test 03/20/22 04:45 03/21/22 06:15 Sodium Level 142 mmol/L (136-145) 143 mmol/L (136-145) Potassium Level 4.4 mmol/L (3.5-5.1) 4.2 mmol/L (3.5-5.1) Chloride Level 113 mmol/L (98-107) 113 mmol/L (98-107) Carbon Dioxide Level 28 mmol/L (21-32) 28 mmol/L (21-32) Anion Gap 1 (6-14) 2 (6-14) Blood Urea Nitrogen 8 mg/dL (8-26) 6 mg/dL (8-26) Creatinine 0.5 mg/dL (0.7-1.3) 0.5 mg/dL (0.7-1.3) Estimated GFR (Cockcroft-Gault) 172.6 172.6 Glucose Level 91 mg/dL (70-99) 99 mg/dL (70-99) Calcium Level 6.9 mg/dL (8.5-10.1) 7.1 mg/dL (8.5-10.1) Phosphorus Level 2.6 mg/dL (2.6-4.7) 3.1 mg/dL (2.6-4.7) Magnesium Level 2.0 mg/dL (1.8-2.4) 2.1 mg/dL (1.8-2.4) Laboratory Tests Test 03/21/22 06:15 Sodium Level 143 mmol/L (136-145) Potassium Level 4.2 mmol/L (3.5-5.1) Chloride Level 113 mmol/L (98-107) Carbon Dioxide Level 28 mmol/L (21-32) Anion Gap 2 (6-14) Blood Urea Nitrogen 6 mg/dL (8-26) Creatinine 0.5 mg/dL (0.7-1.3) Estimated GFR (Cockcroft-Gault) 172.6 Glucose Level 99 mg/dL (70-99) Calcium Level 7.1 mg/dL (8.5-10.1) Phosphorus Level 3.1 mg/dL (2.6-4.7) Magnesium Level 2.1 mg/dL (1.8-2.4) Assessment/Plan would continue tpn, reviewed oncology notes will review with Dr Carl Justicifation of Admission Dx: Justifications for Admission: Justification of Admission Dx: Yes CHF: Cardiac Arrhythmias SAIDA CARL MD 03/21/22 1134: SURGICAL PROGRESS NOTE Assessment/Plan Overall has improved symptomatically. Will review case at tumor conference. Agree with Mei assessment plan MAR YLOU WOMACK P[employer]IAT[employer] TEACHER March 21, 2022 10:55 SAIDA CARL MD March 21, 2022 11:34
[2022-03-21 11:00] VITALS: BP 121/76
--- NOTE | 2022-03-21 12:16 | PDOC ---
[facility] PROGRESS NOTE Date of Service DOS: DATE: 03/21/22 TIME: 12:15 Chief Complaint Chief Complaint Assessment/Plan Acute abdominal pain secondary to partial SBO, possible adhesions versus tumor recurrence History of neuroendocrine small bowel tumor History of exploratory laparotomy with small bowel resection and tumor resection History of atrial fibrillation Weight loss with severe protein malnutrition PICC line placement and will start on TPN for supplementary nutrition. Oncology consult for possible tumor recurrence General surgery consult NPO Continue IV fluids Serial abdominal exams Baseline admission labs Telemetry if patient has symptomatic palpitations Metoprolol as needed for target heart rate less than 110 for his history of atrial fibrillation Lovenox for DVT prophylaxis Protonix IV GI prophylaxis NPO CODE STATUS full Discussed with RN and SW Disposition inpatient management as above DPOA: History of Present Illness History of Present Illness 55-year-old male with past medical history of neuroendocrine resection in August from an exploratory laparotomy with small bowel resection who comes in with worsening abdominal pain ever since surgery in August. Patient describes his pain is gotten to the point where he sees his stomach distend and also make large gurgling noises audible without a stethoscope. Patient does endorse mild nausea but no active vomiting. He does have very loose bowel movements at least 2-3 times per day. Patient has not started any chemoradiation treatments. He denies any fevers, chest pain, hematuria, bloody stools or palpitations or syncope. No loss of appetite. He does endorse weight loss of about 40 pounds since the time of his surgery. Patient was sent as a direct admit from his PCP Dr. Reed after a CT abdomen was done showing small bowel obstruction. Patient is admitted for further care and further evaluation by general surgery and oncology 03/16/2022 No acute events overnight. Patient seen examined bedside. Still having abdominal pain and cramps. No bowel movements. Pending definitive plan from surgery and oncology. Patient's chart, labs, images were reviewed and discussed with RN 03/17/2022 No acute events overnight. Patient seen examined bedside. PICC line placed for TPN. No nausea vomiting episodes. Pain improved after not eating. Patient's chart, labs, images were reviewed and discussed with RN 03/18/2022 No acute events overnight. Patient seen examined bedside. TPN started through PICC line. Patient's symptoms improved after bowel rest. Patient will need home health planning for TPN infusion. Unknown timing for definitive procedures. Patient will need outpatient PET scan per oncology per oncology recs: -Consider adding octreotide/SSA for symptom and disease control if dotatate PET positive. -Would favor reevaluation with surgeon for laparoscopic and adhesiolysis if dotatate PET negative 03/19/2022 No acute events overnight. Patient seen ambulating to the hallway with IV pole and TPN running. Symptomatically improved. We will continue with TPN and gustavo guzman need outpatient infusion therapy for TPN. Patient's chart, labs, images were reviewed and discussed with RN 03/20/2022 No acute events overnight. Patient seen examined bedside. Tolerating TPN and symptoms have improved. Passing flatus. No nausea vomiting. Patient's chart, labs, images were reviewed and discussed with RN 03/21/2022 No acute events overnight. Patient seen examined bedside. Having watery stools and passing flatus. No more abdominal pain. Tolerating TPN. Pending home health IV infusion for TPN set up. Patient's chart, labs, images were reviewed and discussed with RN Vitals/I&O Vitals/I&O: Vital Signs Date Time Temp Pulse Resp B/P (MAP) Pulse Ox O2 Delivery O2 Flow Rate FiO2 03/21/22 07:00 97.8 67 12 104/66 (79) 100 Room Air 97.8 Physical Exam General: Alert, Cooperative, No acute distress Heart: Regular rate, Normal S1, Normal S2 Lungs: Clear Abdomen: Soft, No tenderness Extremities: No clubbing, No cyanosis Skin: No significant lesion Labs Labs: Laboratory Tests Test 03/21/22 06:15 Sodium Level 143 mmol/L (136-145) Potassium Level 4.2 mmol/L (3.5-5.1) Chloride Level 113 mmol/L (98-107) Carbon Dioxide Level 28 mmol/L (21-32) Anion Gap 2 (6-14) Blood Urea Nitrogen 6 mg/dL (8-26) Creatinine 0.5 mg/dL (0.7-1.3) Estimated GFR (Cockcroft-Gault) 172.6 Glucose Level 99 mg/dL (70-99) Calcium Level 7.1 mg/dL (8.5-10.1) Phosphorus Level 3.1 mg/dL (2.6-4.7) Magnesium Level 2.1 mg/dL (1.8-2.4) Comment Review of Relevant I have reviewed the following items anna marie (where applicable) has been applied. Medications: Current Medications Medications (Trade) Dose Ordered Sig/Mirta Route PRN Reason Start Time Stop Time Status Last Admin Dose Admin Sodium Chloride 90 meq/Potassium Acetate 50 meq/ Potassium Phosphate 20 mmol/ Magnesium Sulfate 10 meq/ Multivitamins 10 ml/Zinc/Copper/ Manganese/ Selenium 1 ml/ Total Parenteral Nutrition/Amino Acids/Dextrose/ Fat Emulsion Intravenous 1,512 ml @ 63 mls/hr TPN CONT IV 03/20/22 22:00 03/21/22 21:59 03/20/22 21:27 Justifications for Admission Other Justification Abdominal pain due to small bowel obstruction MARIFER CUEVAS MD March 21, 2022 12:16
[2022-03-21 15:00] VITALS: BP 103/71
[2022-03-21 19:00] VITALS: BP 101/61
[2022-03-21] MEDS: ENOXAPARIN 40 MG/0.4 ML SYRINGE. SQ SCH (21:30)
[2022-03-21] MEDS ORDERED: TOTAL PARENTERAL NUTRITION IV SCH (22:00)
[2022-03-21] MEDS ORDERED: DEXTROSE 70% IV SCH (22:00)
[2022-03-21] MEDS ORDERED: [UNRECOGNIZED DRUG - OTHER] IV SCH (22:00)
[2022-03-21] MEDS ORDERED: AMINO ACID IV SCH (22:00)
[2022-03-29 21:13] LABS: 5 HIAA URINE 12.9 mg/L (Undefined)
== END 2022-03-22 | disposition home health service (06) | DRG 388 ==
LOC: 4 NORTH 11:42
PROVIDERS: ADMIT Internal Medicine; ATTEND Internal Medicine
PROC: 02HV33Z Insertion of Infusion Device into Superior Vena Cava, Percutaneous Approach (ICD-10-PCS; principal; 2022-03-17)
PROC: B548ZZA Ultrasonography of Superior Vena Cava, Guidance (ICD-10-PCS; 2022-03-17)
PROC: B548ZZA Ultrasonography of Superior Vena Cava, Guidance (ICD-10-PCS; 2022-03-17)
DX: K56.51 Intestinal adhesions [bands], with partial obstruction (principal); E43 Unspecified severe protein-calorie malnutrition; C7A.8 Other malignant neuroendocrine tumors; I48.91 Unspecified atrial fibrillation; I50.9 Heart failure, unspecified; K57.90 Diverticulosis of intestine, part unspecified, without perforation or abscess without bleeding; M45.9 Ankylosing spondylitis of unspecified sites in spine; Z87.11 Personal history of peptic ulcer disease; Z68.22 Body mass index [BMI] 22.0-22.9, adult; Z79.01 Long term (current) use of anticoagulants
CPT/HCPCS: 36415; 36573; 80048; 80076; 82040; 83497; 83735; 84100; 84478; 85025; C1751; C1892; C9113; J1650; J3475; J3490; J7030; G0378; Q0163